=== PATIENT | male | born 1945 | race Caucasian/White ===

== ENCOUNTER 2019-04-06 10:35 | Outpatient (CLI) | payer MEDICARE, SELFPAY ==
--- NOTE | ~2019-04-06 | XR_ITS ---
XR chest 2V DATE: 04/06/2019 10:58 INDICATION: Pneumonia TECHNIQUE: AP and lateral views COMPARISON: 01/31/2019 2 view chest 10/21/2008 portable AP chest FINDINGS: There is right upper lobe atelectasis, infiltrate and/or scarring, unchanged since 02/01/20 19. The lungs are otherwise clear of infiltrate or consolidation. No pleural effusion or pulmonary va scular congestion or pneumothorax. Normal heart size. There is aortic calcification and mild tortuosity. Left internal jugular Port-A-Cath catheter tip overlies the upper right atrium. Surgical clips, right upper quadrant, likely due to cholecystectomy IMPRESSION: No significant change since 01/31/2019 Reviewed, dictated and finalized at location B. M SIGNALER
== END 2019-04-06 10:36 | disposition home or self-care (01) ==
LOC: ANHIMG 10:40
PROVIDERS: PCP Family Medicine; Visit Provider Family Medicine
DX: J18.9 Pneumonia, unspecified organism (principal)
CPT/HCPCS: 71046

== ENCOUNTER 2019-07-09 13:00 | Outpatient (RCR) | payer MEDICARE, SELFPAY ==
--- NOTE | 2019-04-14 16:33 | PTOPEVAL ---
PHYSICAL THERAPY EVALUATION AND PLAN OF CARE Thank you for referring this patient to [facility]. Tom is to participate in PT 2x/week for 4 weeks with re-evaluation to follow to determine further needs. Please review, sign, date and return this plan of care MASON. I agree with and certify that the following plan of care is medically necessary. Referring Physician Date Attending Provider: Jeffrey Miller MD Evaluation Outpatient Past Medical History Neurological History Hx Cerebrovascular Accident (CVA) Yes: 2008 Hx Other Neurological Disorders Yes: BRAIN BLEED 2014 Cardiovascular History Hx Aneurysm Yes Hx Chest Pain Yes Respiratory History Hx Other Respiratory Disorders Yes: RIGHT LUNG CX Gastrointestinal History Hx Cholecystectomy Yes Hx Obstructive Bowel Yes Genitourinary History Hx Genitourinary Disorders No Significant History Musculoskeletal History Hx Arthritis Yes Hx Back Pain Yes Hematological History Hx Hematological Disorders No Significant History Endocrine History Hx Diabetes Yes HEENT History Hx Cataracts Yes: BOTH EYES Integumentary History Hx Skin Disorders No Significant History Psychosocial History Hx Psychiatric Disorders No Significant History Pain History History of Any Previous or Ongoing No Significant History Instance of Pain Anesthesia History Hx Anesthesia Reactions No Significant History Other History Hx Cancer Yes: RIGHT LUNG CANCER Hx Chemotherapy Yes Hx Radiation Therapy Yes Hx Other Surgeries Yes: PORT LT CHEST Evaluation Information Problem Diagnosis hemiplegia right side Onset 2014 Additional Evaluation Detail 141/86 Subjective Information Tom is here today 5 years Query Text:As Reported By Patient/ after hemiplegia. At initial Family encounter he had participated in physicl therapy extensively . He has continued his home exericses and states he works 2-3 hours a day on [employer]. States he is now able to lie over to stomach and do exercises for back of his legs . Tom does have a history of lung cancer with treatment of chemo, radiation, and immunotherapy. He admits that during that time he did much less activity that he normally would. Prior
--- NOTE | 2019-04-27 12:58 | PCPTNOTE ---
Patient did not show up for scheduled appointment this date. Called and spoke with patient and they had a 2:00PM scheduled appt written down. Was able to re-schedule this appointment for 12:30PM on 04/28/2019.
[2019-05-07 14:00] VITALS: BP_SYST 60
--- NOTE | 2019-05-07 15:26 | OTOPEVAL ---
OCCUPATIONAL THERAPY INITIAL EVALUATION 05/07/2019 Thank you for referring this patient to [facility]. Tom will benefit from skilled OT 2x/week for 4 weeks for deficits outlined below. Please review, sign, date and return this plan of care MASON. I agree with and certify that the following plan of care is medically necessary. Referring Physician Date Admitting Provider: Attending Provider: Jeffrey Miller MD Referring Provider: *OT Outpatient Evaluation Start: 05/07/19 13:59 Freq: Status: Active Protocol: Document 05/07/19 14:00 BETTY (Rec: 05/07/19 15:14 BETTY [id number]) Therapy Assessment Status Assessment Status Assessment Status Evaluation Outpatient Past Medical History Neurological History Hx Cerebrovascular Accident (CVA) Yes: 2008 Hx Other Neurological Disorders Yes: BRAIN BLEED 2014 Cardiovascular History Hx Aneurysm Yes Hx Chest Pain Yes Respiratory History Hx Other Respiratory Disorders Yes: RIGHT LUNG CX Gastrointestinal History Hx Cholecystectomy Yes Hx Obstructive Bowel Yes Genitourinary History Hx Genitourinary Disorders No Significant History Musculoskeletal History Hx Arthritis Yes Hx Back Pain Yes Hematological History Hx Hematological Disorders No Significant History Endocrine History Hx Diabetes Yes HEENT History Hx Cataracts Yes: BOTH EYES Integumentary History Hx Skin Disorders No Significant History Psychosocial History Hx Psychiatric Disorders No Significant History Pain History History of Any Previous or Ongoing No Significant History Instance of Pain Anesthesia History Hx Anesthesia Reactions No Significant History Other History Hx Cancer Yes: RIGHT LUNG CANCER Hx Chemotherapy Yes Hx Radiation Therapy Yes Hx Other Surgeries Yes: PORT LT CHEST Evaluation Information Problem Diagnosis (R) hemiplegia s/p CVA Onset 2014 Subjective Information Tom is here today 5 years Query Text:As Reported By Patient/ after hemiplegia. He has Family continued his home exercises and states he works 2-3 hours a day on exercises. He wanted to return to OT due to noticing improvements in RUE flexibility and movement. Tom does have a history of lung cancer with treatment of chemo, radiation, and immunotherapy. He admits that during that
--- NOTE | 2019-05-13 14:07 | PCPTNOTE ---
Patient called and cancelled his re-evaluation for 05/14/2019 due to COVID-19 precautions. His chart will be held for 30 days before closing chart.
--- NOTE | 2019-05-27 08:29 | PTOPEVAL ---
Thank you for referring Tom Lowery to [facility]. Please review, sign, date and return this plan of care MASON. I agree with and certify that the following plan of care is medically necessary. Referring Physician Date Attending Provider: Jeffrey Miller MD Diagnosis (R) hemiplegia s/p CVA Onset 2014 Additional Evaluation Detail 141/86 Subjective Information Tom has participated in 4 Query Text:As Reported By Patient/ weeks of physical therapy to Family increase strength and stamina and endurance after an episode of lung cancer. He reports no new pain or symptoms. Pain Assessment Self Report Pain Level 0 Right Hip Flexion Strength 4- Good - Hip Extension Strength 2+ Poor + Hip Abduction Strength 3- Fair - Hip Adduction Strength 2+ Poor + Knee Strength Right Knee Flexion Strength 2+ Poor + Knee Extension Strength 4- Good - Knee Strength Comments s/l MMT: difficulty performing single joint motion without tonal influence Dermatomes Lumbar/Sacral Dermatomes Right Lumbar/Sacral Dermatome Levels L2 Light Touch Stimulus Impaired Sharp Stimulus Impaired Dull Stimulus Impaired Proprioception Impaired Kinesthesia Impaired Two-Point Discrimination Impaired Lumbar Dermatome Comments levels L2-S2 Balance Assessment Giron Balance Assessment Sitting to Standing Independent w/Hands Unsupported Stance Ability Supervision- 2 minutes Sitting Unsupported, Feet on Floor Safely- 2 minutes Standing to Sitting Assist, Use Legs on Chair Transfer Ability Safely, Hand Use Unsupported Stance- Eyes Closed Supervision, 10 seconds Unsupported Stance- Feet Together Independent, 1 minute Reaching Forward while Standing Safely, 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
--- NOTE | 2019-06-04 09:45 | OTOPEVAL ---
OT RE-EVALUATION REPORT 06/04/2019 Thank you for referring Tom Lowery to [facility]. Tom is making progress with ROM and flexibility and will benefit from continued skilled OT 2x/week for 4 weeks. Please review, sign, date and return this plan of care MASON. I agree with and certify that the following plan of care is medically necessary. Referring Physician Date Admitting Provider: Attending Provider: Jeffrey Miller MD Referring Provider: *OT Outpatient Re-Evaluation Problem Diagnosis (R) hemiplegia s/p CVA Onset 2014 Additional Evaluation Detail Tom has been participating in outpatient OT for treatment of residual deficits following CVA. He has been compliant with all HEPs. Subjective Information Tom reports that since Query Text:As Reported By Patient/ beginning therapy he has been Family noticing improvements in his flexibility and quality of movement in the RUE. This has increased his ability to perform self PROM and strengthening exercises. Pain Assessment Timing of Pain Assessment Timing of Pain Assessment Re-assessment Self Report Self Report Pain Level 0 Pain Score Pain Score 0: Self Report Upper Extremity Range of Motion Scapular/ Shoulder Range of Motion Right Scapular: Retraction Hypomobile Scapular: Protraction Hypomobile Scapular Downward Rotation Hypomobile Scapular Upward Rotation Hypomobile Shoulder Flexion - Active 55 Shoulder Abduction - Active 65 Shoulder Medial Rotation - Active Minimal IR. Query Text:Reach Behind the Back Shoulder Lateral Rotation - Active Minimal ER. Query Text:Reach Behind the Head Scapular/Shoulder Range of Motion AROM measured at eval (05/07/19)- flexion 40* extension 30* abduction 50* Elbow/Forearm Range of Motion Right Elbow Flexion - Active 110 Elbow Flexion - Passive 130 Elbow Extension - Active -20 Elbow Extension - Passive 0 Elbow/Forearm Range of Motion Comments Pt. is able to supinate from full pronation to neutral; With gravity assist, he is able to pronate from neutral to 90* AROM measured at eval (05/07/19)- flexion 100* extension -25* trace forearm rotation Wrist Range of Motion Right Wrist Flexion - Active 30 Wrist E
[2019-06-30 11:10] VITALS: BP_SYST 100
--- NOTE | 2019-06-30 12:21 | OTOPEVAL ---
OCCUPATIONAL THERAPY RE-EVALUATION REPORT 06/30/2019 Thank you for referring Tom Lowery to [facility]. Skilled OT indicated for 2x/week for 4 weeks. Please review, sign, date and return this plan of care MASON. I agree with and certify that the following plan of care is medically necessary. Referring Physician Date Referring Provider: Jeffrey Miller MD *OT Outpatient Re-Evaluation Evaluation Information Problem Diagnosis (R) hemiplegia s/p CVA Onset 2014 Additional Evaluation Detail Tom has been participating in outpatient OT for treatment of residual deficits following CVA. He has been compliant with all HEPs. The past month therapy has been doing a trial mirror therapy sessions. Subjective Information Tom reports that since Query Text:As Reported By Patient/ beginning therapy he has been Family noticing improvements in his flexibility, ROM, and quality of movement in the RUE. This has increased his ability to perform self PROM and strengthening exercises as well as positioning in bed and his w/c. He reports that in the last week he has been independently and automatically positioning his RUE on the arm rest of his w/ c without assist from the LUE. He states, It's like my brain is recognizing the arm more instead of relying on the LUE to help it. Pain Assessment Timing of Pain Assessment Timing of Pain Assessment Re-assessment Self Report Self Report Pain Level 0 Pain Score Pain Score 0: Self Report Upper Extremity Range of Motion Scapular/ Shoulder Range of Motion Right Scapular: Retraction Hypomobile Scapular: Protraction Hypomobile Scapular Downward Rotation Hypomobile Scapular Upward Rotation Hypomobile Shoulder Flexion - Active 55 Shoulder Flexion - Passive 140 Shoulder Abduction - Active 65 Shoulder Abduction - Passive 100 Shoulder Lateral Rotation - Active ER improved from trace Query Text:Reach Behind the Head movement to 20* active ER and 50* passive ER. Scapular/Shoulder Range of Motion No increases or decreases in Comments active shoulder f
--- NOTE | 2019-06-30 13:59 | PTOPEVAL ---
PHYSICAL THERAPY PLAN OF CARE UPDATE AND PROGRESS REPORT Thank you for referring Tom Lowery to [facility]. I recommend continuing physical therapy 2x/week for 4 weeks. Please review, sign, date and return this plan of care MASON. I agree with and certify that the following plan of care is medically necessary. Referring Physician Date Attending Provider: Jeffrey Miller MD Re-evaluation Outpatient Past Medical History Neurological History Hx Cerebrovascular Accident (CVA) Yes: 2008 Hx Other Neurological Disorders Yes: BRAIN BLEED 2014 Other History Hx Cancer Yes: RIGHT LUNG CANCER Self Report Pain Level 0 Pain Score Pain Score 0: Self Report Additional Pain Score Comments buttock muscles are sore Lower Extremity Muscle Strength Testing Hip Strength Right Hip Flexion Strength 4- Good - Hip Extension Strength 2+ Poor + Hip Abduction Strength 3- Fair - Hip Adduction Strength 2+ Poor + Knee Strength Right Knee Flexion Strength 2+ Poor + Knee Extension Strength 4 Good Ankle Strength Right Ankle Dorsiflexion Strength 1 Trace Ankle Plantarflexion Strength 1 Trace Balance Assessment Giron Balance Assessment Sitting to Standing Independent w/Hands Unsupported Stance Ability Safely- 2 minutes Sitting Unsupported, Feet on Floor Safely- 2 minutes Standing to Sitting Assist, Control w/Hands Transfer Ability Safely, Hand Use Unsupported Stance- Eyes Closed Supervision, 10 seconds Unsupported Stance- Feet Together Independent, 1 minute Reaching Forward while Standing Safely, 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 Requires Supervision Look Behind Shoulder - Standing Turns Sideways Only Turning 360 Degrees Requires Assistance Unsupported Stance, Alternating Feet on Assist to Prevent Fall Stair Unsupported Tandem Stance Small Step- 30 seconds Unilateral Leg Stance Unable,assist to not fall GIRON Balance Evaluation Total Score ( 31 points) Comments last re-assess: Time Up Go (TUG) Timed Up and Go Test (TUG) (Seconds) 136 Assistive Devices Cane, Large Base Quad 5 Time Sit to Stand Time in Seconds 29.10 5 Time Sit to Stand Comments with single arm rest Query Text:Normative Data: If Greater Than 15 Seconds, 74% Increase Risk for Recurrent Falls Gait Assessment Gait Assessment Ambulation Assistive Devices Cane, Large Base Quad Ambulation Distance 10 Query Text:(Feet) Ambulation Speed (feet/second) 0.2 Ambulation Destination In Gym Gait Pattern Assessment Gait Pattern Spastic Gait,Steppage Gait Gait Pattern Observed Decreased Stride Length - Left
--- NOTE | 2019-07-10 09:40 | PCPTNOTE ---
This treatment is being continued on visit number [id number]. Please see documentation on both accounts to view progress. Completed interventions, outcomes, and problems have been marked as Inactive to facilitate the copying of the Care plan routine for recurring accounts.
== END 2019-07-10 08:12 | disposition home or self-care (01) ==
LOC: ANHOT 13:00
PROVIDERS: PCP Family Medicine; Visit Provider Family Medicine
DX: I69.351 Hemiplegia and hemiparesis following cerebral infarction affecting right dominant side (principal)
CPT/HCPCS: 97110; 97112; 97116; 97140; 97162; 97165

== ENCOUNTER 2019-08-25 09:30 | Outpatient (RCR) | payer MEDICARE, SELFPAY ==
[2019-07-10 08:13] VITALS: BP_SYST 100
--- NOTE | 2019-07-10 09:39 | PCPTNOTE ---
The treatment documented on this account is a continuation of the treatment documented on visit number [id number]. Please see documentation on both accounts to view progress. The Plan of Care has been transitioned and updated within the new V#. I have addressed and agree with the discipline specific Problems, Interventions, and Goals for the current certification period. Completed interventions, outcomes, and problems have been marked as Inactive to facilitate the copying of the Care plan routine for recurring accounts.
[2019-07-28 14:40] VITALS: BP_SYST 100
--- NOTE | 2019-07-28 15:52 | OTOPEVAL ---
OCCUPATIONAL THERAPY RE-EVALUATION Thank you for referring Tom Lowery to [facility]. It is recommended that Tom continue to work on his home exercise program over the next 4 weeks and return for a re-evaluation to assess his progress with his new HEP as it appears his body needs more time to make physical and functional changes. Plan to schedule a re-evaluation in 4 weeks and follow up another progress report. Please review, sign, date and return this plan of care MASON. I agree with and certify that the following plan of care is medically necessary. Referring Physician Date Admitting Provider: Attending Provider: Jeffrey Miller MD Referring Provider: *OT Outpatient Re-Evaluation Evaluation Information Problem Diagnosis (R) hemiplegia s/p CVA Onset 2014 Additional Evaluation Detail Tom has been participating in outpatient OT since 05/07/19 . OT has been focusing on decreasing tonal patterns, improving flexibility, and improving active movement of the LUE. Subjective Information Tom reports good compliance Query Text:As Reported By Patient/ with all instructed materials. Family He states that in the past month he has noticed improvement with thumb and finger extension as well as improved flexibility of the shoulder and elbow. Pain Assessment Timing of Pain Assessment Timing of Pain Assessment Re-assessment Self Report Self Report Pain Level 0 Pain Score Pain Score 0: Self Report Upper Extremity Range of Motion Scapular/ Shoulder Range of Motion Right Shoulder Flexion - Active 40 Shoulder Flexion - Passive 140 Shoulder Abduction - Active 60 Shoulder Abduction - Passive 100 Shoulder Lateral Rotation - Active Active - 20* Query Text:Reach Behind the Head Passive - 50* Scapular/Shoulder Range of Motion No significant changes in Comments shoulder AROM/PROM since the last reassessment. Elbow/Forearm Range of Motion Right Elbow Flexion - Active 100 Elbow Flexion - Passive 135 Elbow Extension - Active -10 Elbow Extension - Passive 0 Forearm Supination - Active 40 Forearm Supination - Passive 80 Forearm Pronation - Active 90 Elbow/Forearm Range of Motion Comments No changes in elbow AROM/PROM since the last reassessment. Wrist Range of Motion Right Wrist Flexion - Active 30 Wrist Extension - Active 30 Wrist Range of Motion Comments Wrist flexion and extension made no notable impr
--- NOTE | 2019-07-28 16:34 | PTOPEVAL ---
PHYSICAL THERAPY PLAN OF CARE UPDATE Thank you for referring Tom Lowery to [facility]. I recommend follow-up with Tom in 1 month to address HEP. Please review, sign, date and return this plan of care MASON. I agree with and certify that the following plan of care is medically necessary. Referring Physician Date Attending Provider: Jeffrey Miller MD Re-evaluation Diagnosis (R) hemiplegia s/p CVA Onset 2014 Subjective Information Tom continues to report ever Query Text:As Reported By Patient/ changing sensation in th Family eright LE that is difficult for him to describe other than that it is always changing and different. 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 Pain Assessment Timing of Pain Assessment Timing of Pain Assessment Pre-Treatment Self Report Self Report Pain Level 0 Pain Score Pain Score 0: Self Report Lower Extremity Muscle Strength Testing Hip Strength Right Hip Flexion Strength 4+ Good + Hip Extension Strength 3- Fair - Hip Abduction Strength 3 Fair Knee Strength Right Knee Flexion Strength 2- Poor - Knee Extension Strength 4 Good Balance Assessment Giron Balance Assessment Sitting to Standing Independent w/Hands Unsupported Stance Ability Safely- 2 minutes Sitting Unsupported, Feet on Floor Safely- 2 minutes Standing to Sitting Assist, Control w/Hands Transfer Ability Safely, Hand Use Unsupported Stance- Eyes Closed Supervision, 10 seconds Unsupported Stance- Feet Together Independent, 1 minute Reaching Forward while Standing Safely, 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 Object 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 Floor Requires Supervision Look Behind Shoulder - Standing Turns Sideways Only Turning 360 Degrees Requires Assistance Unsupported Stance, Alternating Feet on Assist to Prevent Fall Stair Unsupported Tandem Stance Small Step- 30 seconds Unilateral Leg Stance Unable,assist to not fall GIRON Balance Evaluation Total Score 32/56 Comments last re-assess: Time Up Go (TUG) Assistive Devices Cane, Large Base Quad Comments last re-assess: 136seconds 07/28/2019: unable to perform today, RLE weak and shakey, not safe 5 Time Sit to Stand Time in Seconds 29.10 5 Time Sit to Stand Comments with single arm rest Query Text:Normative Data: If Greater Than 15 Seconds, 74% Increase
[2019-08-24 10:04] VITALS: BP_SYST 120
--- NOTE | 2019-08-24 11:17 | OTOPEVAL ---
OCCUPATIONAL THERAPY D/C NOTE 08/24/2019 Thank you for referring Tom Lowery to [facility]. Plan to D/C today with patient independent with HEP. Please review, sign, date and return this D/C Note MASON. I agree with and certify that the following plan of care is medically necessary. Referring Physician Date Referring Provider: Jeffrey Miller MD *OT Outpatient ReEvaluation Evaluation Information Problem Diagnosis (R) hemiplegia s/p CVA Onset 2014 Additional Evaluation Detail Tom has been participating in outpatient OT since 05/07/19 , with a 1 month break. He presents today for a re- evaluation after completing his home exercise program independently for a month. HEP focuses on decreasing tonal patterns, improving flexibility, and improving active movement of the LUE. Subjective Information Tom reports good compliance Query Text:As Reported By Patient/ with all instructed materials. Family He states that in the past month he has noticed some improvement in the RUE with flexibility and AROM. Pain Assessment Timing of Pain Assessment Timing of Pain Assessment Re-assessment Self Report Self Report Pain Level 0 Pain Score Pain Score 0: Self Report Upper Extremity Range of Motion Scapular/ Shoulder Range of Motion Right Scapular: Retraction Hypomobile Scapular: Protraction Hypomobile Shoulder Flexion - Active 50 Shoulder Flexion - Passive 140 Shoulder Abduction - Active 65 Shoulder Abduction - Passive 120 Shoulder Lateral Rotation - Active Active - 20* Query Text:Reach Behind the Head Passive - 50* Scapular/Shoulder Range of Motion No significant changes in Comments shoulder AROM/PROM since SOC. Elbow/Forearm Range of Motion Right Elbow Flexion - Active 95 Elbow Flexion - Passive 135 Elbow Extension - Active -5 Elbow Extension - Passive 0 Forearm Supination - Passive 80 Forearm Pronation - Active 90 Elbow/Forearm Range of Motion Comments Pt able to supinate to neutral . No changes in elbow AROM/PROM since the last reassessment. Wrist Range of Motion Right Wrist Flexion - Active 35 Wrist Extension - Active 20 Wrist Range of Motion Comments Wrist flexion and extension made no notable improvements
--- NOTE | 2019-08-25 10:27 | PTOPEVAL ---
PHYSICAL THERAPY DISCHARGE NOTE Thank you for referring Tom Lowery to [facility]. Please review, sign, date and return this plan of care MASON. I agree with and certify that the following plan of care is medically necessary. Referring Physician Date Attending Provider: Jeffrey Miller MD Discharge Diagnosis (R) hemiplegia s/p CVA Onset 2014 Subjective Information Tom reports good compliance Query Text:As Reported By Patient/ with all instructed materials. Family He states that in the past month he has noticed some improvement in strength and gait. Pain Assessment Timing of Pain Assessment Timing of Pain Assessment Re-assessment Self Report Self Report Pain Level 0 Pain Score Pain Score 0: Self Report Additional Pain Score Comments buttock muscles are sore Balance Assessment [place] Balance Assessment 32/56 Time Up Go (TUG) Assistive Devices Cane, Large Base Quad Comments 06/26/19: 136seconds 08/25/2019: unable to complete test 07/28/2019: unable to perform today, RLE weak and shakey, not safe 5 Time Sit to Stand Time in Seconds 32.12 5 Time Sit to Stand Comments on month ago: 29seconds; with Query Text:Normative Data: If Greater single arm rest Than 15 Seconds, 74% Increase Risk for Recurrent Falls Gait Pattern Spastic Gait,Steppage Gait Gait Pattern Observed Decreased Stride Length - Left ,Decreased Weight Shift - Right Other Gait Observations as gait progresses, the right LE abducts and externally rotates; very limited weight bearing through right LE; standing: wieght shifts strongly to left and is unable to fully correct center without cues 8ft gait speed without use of UE in // bars: .45ft/second PT Clinical Summary Tom has been participating in physical therapy for RLE strengthening and endurance training in order to improve gait and independence in the home and community. After 1 month of home exercises, he
== END 2019-09-28 12:42 | disposition home or self-care (01) ==
LOC: ANHPT 09:30
PROVIDERS: PCP Family Medicine; Visit Provider Family Medicine
DX: I69.351 Hemiplegia and hemiparesis following cerebral infarction affecting right dominant side (principal)
CPT/HCPCS: 97014; 97110; 97112; 97140; G0283

== ENCOUNTER 2020-03-11 23:36 | Emergency (ER) | payer MEDICARE, SELFPAY ==
--- NOTE | ~2020-03-11 | XR_ITS ---
EXAMINATION: XR chest 2V DATE: 03/12/2020 00:24 INDICATION: Shortness of breath and weakness TECHNIQUE: AP and lateral views of the chest are obtained. COMPARISON: 04/06/2019 FINDINGS: There is chronic and unchanged volume loss in the right lung apex. A left internal jugular Port-A-Cath ends with its tip in the proximal right atrium. The lungs are free of acute opacities. Th ere is no pleural effusion or pneumothorax. The cardiomediastinal silhouette is normal. Surgical clip s in the right upper quadrant are likely from prior cholecystectomy. IMPRESSION: 1. No acute cardiopulmonary abnormality. Reviewed, dictated and finalized at location A. ING TECHN
[2020-03-11 23:35] VITALS: BP 133/75; PULSE 86; RESP 15; TEMP 36.5; O2SAT 97
[2020-03-11 23:43] VITALS: O2SAT 97
[2020-03-11 23:45] VITALS: BP 101/58; PULSE 84; RESP 22; O2SAT 96
[2020-03-12] VITALS (9 sets, daily range): BP systolic 101–131; BP diastolic 58–75; PULSE 81–93; RESP 14–22; O2SAT 97–100
--- NOTE | 2020-03-12 00:12 | ECG_ITS ---
Measurements Intervals [place] Rate: 84 P: 15 CO: 192 QRS: 0 QRSD: 97 T: 63 QT: 372 QTc: 442 Interpretive Statements SINUS RHYTHM BORDERLINE ST-T WAVE ABNORMALITY- HIGH LATERAL LEADS BASELINE ARTIFACT- I, III, AVL BORDERLINE ECG Electronically Signed On 03-12-2020 15:44:12 [facility] [employer] COOK by Raj Wells D.O.
--- NOTE | 2020-03-12 00:19 | PC.NURSE ---
Patient in xray at this time.
[2020-03-12 00:55] LABS: Basophils Percent Auto 0.4 % (0.2-1.2); Eosinophils Absolute Auto 0.1 K/mm3 (0-0.3); Eosinophils Percent Auto 1.3 % (0-4.4); Hematocrit 41.7 % (42.0-52.0); Hemoglobin 14.1 g/dL (14.0-18.0); Immature Granulocyte Absolute 0.05 K/mm3 (0.00-0.031); Immature Granulocyte Percent A 0.7 % (0-0.5); Lymphocytes Absolute Auto 0.91 K/mm3 (0.9-3.2); Lymphocytes Percent Auto 12.2 % (18.3-44.2); Mean Corpuscular HGB Conc 33.8 g/dl (32-36); Mean Corpuscular Hemoglobin 29.8 pg (26-34); Mean Corpuscular Volume 88.2 fl (80-100); Mean Platelet Volume 9.6 fl (7.4-10.4); Monocytes Absolute Auto 0.7 K/mm3 (0.1-0.6); Monocytes Percent Auto 8.7 % (2.6-8.5); Neutrophils Absolute Auto 5.7 K/mm3 (1.3-6.7); Neutrophils Percent Auto 76.7 % (45.5-73.1); Platelet Count Result 278 k/mm3 (150-375); Red Blood Count 4.73 M/mm3 (4.6-6.20); Red Cell Distribution Width 13.1 % (11.5-14.5); White Blood Count 7.4 K/mm3 (4.5-10.0)
[2020-03-12 00:59] LABS: Add Urine Microscopic? YES; Appearance Urine Clear (Clear); Bilirubin Urine Negative (Negative); Blood Urine Negative (Negative); Color Urine Yellow (Yellow); Glucose Urine UA 3+ mg/dL (Negative); Ketones Urine 1+ mg/dL (Negative); Leukocyte Esterase Ur Negative LEU/UL (Negative); Mucus Urine Rare /lpf; Nitrate Urine Negative (Negative); Protein Urine Negative (Negative); RBC Urine 0-2 /hpf (0-2); Specific Grav Ur 1.015 (1.001-1.035); Urobilinogen Urine Negative mg/dL (<2.0); WBC Urine 0-3 /hpf
[2020-03-12 01:07] LABS: Alanine Aminotransferase 24 U/L (4-50); Albumin Level 4.1 g/dL (3.5-5.1); Alkaline Phosphatase 57 U/L (38-126); Anion Gap 13 mmol/L (8-16); Aspartate Amino Transferase 26 U/L (17-59); Bilirubin,Total 0.3 mg/dL (0.2-1.3); Blood Urea Nitrogen 14 mg/dL (9-20); Calcium 9.1 mg/dL (8.4-10.2); Carbon Dioxide 20 mmol/L (22-30); Chloride 104 mmol/L (98-107); Estimated Glomerular Filt Rate > 60; Glucose 232 mg/dL (75-110); Potassium 4.2 mmol/L (3.4-5.0); Sodium 137 mmol/L (137-145)
--- NOTE | 2020-03-12 02:14 | ED.GENADULT ---
HPI - General Adult General Chief complaint: Weakness Stated complaint: weakness Time Seen by Provider: 03/11/20 23:41 History of Present Illness HPI narrative: Patient is a 74-year-old male who presents ER after feeling off and vomiting. Patient is very stable and is scotch and wine. States he has had in 6 years. This time believe and he began to feel weak and vomited. He had no loss of consciousness. No chest pain or chest pressure. No loose stools. Concerned he may have just had too much alcohol. EMS arrived and his Accu-Chek was in the 300s as well. He has not had his evening meds which includes diabetes medications. Related Data Home Medications Medication Instructions Recorded Confirmed amlodipine 5 mg tablet 5 mg PO DAILY 01/20/19 02/04/20 aspirin 81 mg tablet,delayed 81 mg PO DAILY 01/20/19 02/04/20 release ferrous sulfate 325 mg (65 mg 325 mg PO DAILY 01/20/19 02/04/20 iron) tablet pantoprazole 40 mg tablet,delayed 40 mg PO QAM 01/20/19 02/04/20 release valsartan 80 mg tablet 80 mg PO DAILY 01/20/19 02/04/20 alprazolam 0.5 mg PO DAILY 01/31/19 02/04/20 atenolol 25 mg PO DAILY 01/31/19 02/04/20 nortriptyline 25 mg PO HS 01/31/19 02/04/20 pravastatin 20 mg tablet 20 mg PO QPM tablet 07/27/19 02/04/20 Allergies Allergy/AdvReac Type Severity Reaction Status Date / Time No Known Allergies Allergy Verified 03/11/20 23:44 Review of Systems Review of Systems: All systems reviewed & are unremarkable except as noted in HPI and below Constitutional: Constitutional: Denies chills, Denies fever(s) and Reports weakness ENT: Denies nasal congestion and Denies sore throat Cardiovascular: Cardiovascular: Denies chest pain, Denies rapid heart rate and Denies radiating jaw, neck or arm pain Respiratory: Respiratory: Denies cough and Denies dyspnea Gastrointestinal: Gastrointestinal: Denies abdominal pain, Denies diarrhea, Reports nausea and Reports vomiting Neurologic: Denies dizziness, Denies focal weakness, Denies numbness and Reports weakness PMFSH Past Medical History Medical History Anemia Ankle fracture, right Arthritis Bilateral cataracts Body mass index (bmi) 28.0-28.9, adult Bowel obstruction Carcinoma, lung Non-small cell carcinoma status post chemotherapy and radiation. He was also on immunotherapy and is followed by an oncologist at [place]. Cataract GERD (gastroesophageal reflux disease) Hypertension IBS (irritable bowel syndrome) Pneumonia Port-A-Cath in place Small bowel obstruction History of small-bowel obstruction 01/04, 02/03, and 05/06, attributed to segmental strictures. 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 TIA (transient ischemic attack) Type 2 diabetes mellitus Type 2 diabetes mellitus with hyperglycemia Surgical History Surgical History History of cataract extraction History of cholecystectomy Status post repair of hydrocele Family History Family History Mother Cancer of stomach Father Heart attack Other Family history of cardiovascular disease Hypertension Social History Social History Social History: The patient is lives with his in [place]. He designates his , Kimberly, as his surrogate decision maker and he wishes to be a full code. He smoked half a pack of cigarettes per day for 40 years and quit several years ago. No alcohol or drug abuse. Smoking packs per day: 0.5 Smoking cigarettes per day: 10.0 Years smoked: 40 Smoking pack-years: 20.00 Smoking status: Former smoker Alcohol intake: current Drinks per week: 1 Substance use: never Spiritual care concerns: No Agree to blood products: Yes Exam Narrativ
== END 2020-03-12 02:30 | disposition home or self-care (01) ==
PROVIDERS: Emergency Provider Emergency Medicine; Family Provider Family Medicine; PCP Family Medicine
DX: R11.10 Vomiting, unspecified (principal); R53.1 Weakness; I10 Essential (primary) hypertension; I69.351 Hemiplegia and hemiparesis following cerebral infarction affecting right dominant side; I69.322 Dysarthria following cerebral infarction; E11.9 Type 2 diabetes mellitus without complications; K21.9 Gastro-esophageal reflux disease without esophagitis; D64.9 Anemia, unspecified; Z85.118 Personal history of other malignant neoplasm of bronchus and lung; K58.9 Irritable bowel syndrome, unspecified; Z79.82 Long term (current) use of aspirin; Z98.42 Cataract extraction status, left eye; Z98.41 Cataract extraction status, right eye; Z87.891 Personal history of nicotine dependence; R94.31 Abnormal electrocardiogram [ECG] [EKG]; Z79.84 Long term (current) use of oral hypoglycemic drugs
CPT/HCPCS: 36415; 71046; 80053; 81001; 85025; 93005; 99283

== ENCOUNTER → 2022-01-18 10:55 | Outpatient (CLI) | payer MEDICARE, SELFPAY ==
--- NOTE | ~2022-01-18 | XR_ITS ---
XR hip RT 2V w AP pelvis DATE: 01/18/2022 12:06 INDICATION: Right hip pain TECHNIQUE: AP pelvis. AP and lateral views of the right hip COMPARISON: None FINDINGS: The AP view of the pelvis excludes the upper portions of the sacrum and iliac crests. Normal alignment at the pubic symphysis and sacroiliac joints. There is mild bilateral hip osteoarthritis. No fracture or dislocation, avascular necrosis or bone destruction of the right hip is detected. IMPRESSION: Mild bilateral hip osteoarthritis Reviewed, dictated and finalized at location B. GENCY PLANNER
--- NOTE | ~2022-01-18 | XR_ITS ---
XR lumbar spine 2-3V DATE: 01/18/2022 12:06 INDICATION: Back pain TECHNIQUE: AP, lateral views COMPARISON: 01/24/2017 CT abdomen pelvis FINDINGS: There is osteopenia. There is moderate degenerative disc disease at L2-3 and moderately severe degenerative disc disease r emaining lumbar interspaces and severe degenerative disc disease at L5-S1. There is degenerative change at the apophyseal joints with associated minimal grade 1 anterolisthesis at L5-S1. The included lower thoracic and lumbar pedicles are intact. No fracture or bone destruction is detect ed. The sacroiliac joints are intact. IMPRESSION: Osteopenia Prominent multilevel degenerative disease of lumbar spine Minimal grade 1 anterolisthesis at L5-S1 due to degenerative change at the apophyseal joints Reviewed, dictated and finalized at location B. ECT CONSULTANT IMPRESSION: Osteopenia Prominent multilevel degenerative disease of lumbar spine Minimal grade 1 anterolisthesis at L5-S1 due to degenerative change at the apop hyseal joints
== END ==
PROVIDERS: PCP Physician Assistant; Visit Provider Physician Assistant
DX: M16.0 Bilateral primary osteoarthritis of hip (principal); M85.88 Other specified disorders of bone density and structure, other site; M51.36 Other intervertebral disc degeneration, lumbar region
CPT/HCPCS: 72100; 73502

== ENCOUNTER → 2022-09-04 08:47 | Outpatient (CLI) | payer MEDICARE, SELFPAY ==
--- NOTE | ~2022-09-04 | MR_ITS ---
MRI of the lumbar spine Clinical History: Radiculopathy Technique: Axial T2-weighted images, and sagittal T1-weighted, T2-weighted, and T2 fat-sat images wer e acquired. Findings: No fracture identified. There is minimal grade 1 retrolisthesis of L3 over L4. No suspiciou s bone marrow signal abnormality seen. At L1-L2, there is no disc bulge or herniation. There is mild to moderate facet arthropathy. No centr al canal stenosis or neural foraminal narrowing. At L2-L3, there is no significant disc bulge or herniation. There is moderate facet arthropathy. No c entral canal stenosis or neural foraminal narrowing. At L3-L4, there is diffuse disc bulge with mild facet arthropathy. There is bilateral lateral recess stenosis. There is moderate to advanced right neural foraminal narrowing and intimal left neural fora micah narrowing. At L4-L5, there is disc bulge and moderate facet arthropathy. No central canal stenosis. There is mil d bilateral neural foraminal narrowing. L5-S1, there is disc bulge and moderate to severe facet arthropathy. No central canal stenosis. There is severe right neural foraminal narrowing and moderate left neural foraminal narrowing. Paravertebral soft tissues are unremarkable. Impression: Moderate degenerative spondylosis at L3-L4 and L5-S1, as detailed above. Additional mild degenerative changes, as above. Reviewed, dictated and finalized at [facility]. Impression: Moderate degenerative spondylosis at L3-L4 and L5-S1, as detailed above. Additional mild degenerative changes, as above.
== END ==
PROVIDERS: PCP Family Medicine; Visit Provider Physician Assistant
DX: M47.27 Other spondylosis with radiculopathy, lumbosacral region (principal)
CPT/HCPCS: 72148

== ENCOUNTER 2022-11-08 08:00 | Outpatient (NON) | payer MEDICARE, SELFPAY | END 2022-11-08 08:01 | disposition home or self-care (01) | LOC: ANHLAB 11-09 13:44 | PROVIDERS: PCP Family Medicine; Visit Provider Nurse Practitioner | DX: C44.311 Basal cell carcinoma of skin of nose (principal) | CPT/HCPCS: 88305 ==

== ENCOUNTER 2022-12-17 14:41 | Outpatient (NON) | payer MEDICARE, SELFPAY | END 2022-12-17 14:42 | disposition home or self-care (01) | LOC: ANHLAB 14:41 | PROVIDERS: PCP Family Medicine; Visit Provider Nurse Practitioner | DX: C44.311 Basal cell carcinoma of skin of nose (principal) | CPT/HCPCS: 88305; 88331 ==

== ENCOUNTER 2023-09-05 09:22 | Outpatient (CLI) | payer MEDICARE, SELFPAY ==
--- NOTE | ~2023-09-05 | XR_ITS ---
Clinical Indication: Neoplasm PA and lateral views of the chest: Comparison: 03/12/2020 Findings: Spiculated density in the left suprahilar region is similar to prior exam, possibly treated disease. No other pulmonary abnormality seen. Cardiomediastinal silhouette is within normal limits. Bones and soft tissues are unremarkable. Impression: Stable spiculated density left suprahilar region, possibly representing treated disease. Reviewed, dictated and finalized at location . Impression: Stable spiculated density left suprahilar region, possibly representing treated disease.
== END 2023-09-05 09:23 ==
PROVIDERS: PCP Family Medicine; Visit Provider Family Medicine
DX: C34.90 Malignant neoplasm of unspecified part of unspecified bronchus or lung (principal)
CPT/HCPCS: 71046

== ENCOUNTER 2023-11-26 17:58 | Inpatient (IN) | payer MEDICARE, SELFPAY ==
--- NOTE | ~2023-11-26 | XR_ITS ---
INTRAOPERATIVE FLUOROSCOPY: CLINICAL HISTORY: 78 years old Male; RIGHT IT NAIL PROCEDURE COMMENTS: Limited intraoperative fluoroscopy of the right femur was performed. CUMULATIVE DOSE: 26.2 mGy FLUOROSCOPY TIME: 69.5 seconds FINDINGS/IMPRESSION: Intraoperative fluoroscopic views demonstrate diffuse bony demineralization with an intramedullary ro d and screw in the right femur. Please refer to operative note for further details. Reviewed, dictated and finalized at location A.
--- NOTE | ~2023-11-26 | CT_ITS ---
CT brain wo con Ordering provider: Jaime Simpson MD History: 78 years Male with . trauma . Comparison: None. Technique: CT of the head without contrast. Radiation reduction technique utilized.The dose-length product was 681 mGy-cm. FINDINGS: BRAIN PARENCHYMA AND CSF SPACES: Mild leukoaraiosis and diffuse cortical atrophy. Mild atheromatous d isease. Encephalomalacia Is seen in the area of the external capsule extending to the left bowman rad iata. No midline shift, mass effect or hemorrhage. The brain parenchyma and CSF spaces are otherwis e normal. VISUALIZED PARANASAL SINUSES: Right maxillary sinus disease. MASTOIDS: Well aerated. BONES: The bones appear intact. SOFT TISSUES: Visualized nasopharynx is normal. Superficial soft tissues are normal. IMPRESSION: No acute intracranial findings. Reviewed, dictated and finalized at location A.
--- NOTE | ~2023-11-26 | XR_ITS ---
XR femur RT min 2V Ordering provider: Myrna Bliss III, History: . fall . Comparison: None. FINDINGS: BONES: The intertrochanteric/subtrochanteric fracture is seen in the right femur. Overlap of the bony fragments is noted. JOINT SPACES: Severe glenohumeral. SOFT TISSUES: Vascular atherosclerotic changes. IMPRESSION: Fracture of the intertrochanteric/subtrochanteric area of the right femur. Reviewed, dictated and finalized at location A.
--- NOTE | ~2023-11-26 | XR_ITS ---
XR hip RT 2V w AP pelvis Ordering provider: Myrna Bliss III, DO History: . fall . Comparison: None. FINDINGS: BONES: intertrochanteric/subtrochanteric fracture of the right femur. Overlap of the bones is noted. HIP JOINT SPACES: Bilateral hip severe osteoarthritic changes. SACROILIAC JOINT SPACES/LUMBAR SPINE: The sacroiliac joint spaces are narrowed. Mild degenerative cecilia nges of the visualized lower lumbar spine. PUBIC SYMPHYSIS: Pubic symphysitis. SOFT TISSUES: Normal. IMPRESSION: intertrochanteric/subtrochanteric fracture of the right femur. Reviewed, dictated and finalized at location A.
--- NOTE | ~2023-11-26 | US_ITS ---
EXAMINATION: US venous doppler LE RT DATE: 11/29/2023 11:41 INDICATION: Right calf pain TECHNIQUE: Grayscale ultrasound images without and with compression and Doppler ultrasound images of the right lower extremity veins were obtained. COMPARISON: None. FINDINGS: The visualized portions of right common femoral vein, profunda (deep) femoral vein, femoral vein, pop liteal vein, peroneal veins, posterior tibial veins, and greater saphenous vein outflow are patent. IMPRESSION: 1. No deep venous thrombosis within the right lower extremity, as detailed above. Reviewed, dictated and finalized at location A. IMPRESSION: 1. No deep venous thrombosis within the right lower extremity, as detailed abo ve.
--- NOTE | ~2023-11-26 | XR_ITS ---
XR chest 1V Ordering provider: Myrna Bliss III, DO History: 78 years Male with . FX RIGHT HIP . Comparison: September 05, 2023 FINDINGS: MEDIASTINUM: The cardiac silhouette is not enlarged. Prominent both darshan more on the right side. Wide laura of the superior mediastinum. LUNGS: No infiltrates, effusions or pneumothorax. Prominent markings are seen bilaterally. Possibility of soft tissue density in the right hilar area i s not excluded. Further evaluation with CT is advised. OTHER: No free air under the diaphragm. IMPRESSION: Prominent darshan with widening of the superior mediastinum. CT Further evaluation there is advised. Reviewed, dictated and finalized at location A.
--- NOTE | ~2023-11-26 | US_ITS ---
RIGHT LOWER EXTREMITY VENOUS ULTRASOUND Ordering provider: Patricia Meléndez APRN History: . eval for dvt . Comparison: None. FINDINGS: --COMMON FEMORAL: Patent and free of thrombus. Normal compressibility, phasic flow and augmentation. --PROXIMAL SUPERFICIAL FEMORAL: Patent and free of thrombus. Normal compressibility, phasic flow and augmentation. --DISTAL SUPERFICIAL FEMORAL: Patent and free of thrombus. Normal compressibility, phasic flow and au gmentation. --POPLITEAL: Patent and free of thrombus. Normal compressibility, phasic flow and augmentation. --POSTERIOR TIBIAL: Patent and free of thrombus. Normal compressibility, phasic flow and augmentation . IMPRESSION: Negative right lower extremity venous US. No deep vein thrombosis. Reviewed, dictated and finalized at location A.
--- NOTE | ~2023-11-26 | CT_ITS ---
CTA chest Ordering provider: Jaime Simpson MD History: 78 years Male with . wide mediastinum . Comparison: None. Technique: CT chest with IV contrast. Radiation reduction technique utilized.The dose-length product was 663.18 mGy-cm. Findings: VISUALIZED THORACIC INLET: Normal. MEDIASTINUM: Aorta/coronary arteries: Mild atheromatous disease. Heart/other: The heart is not enlarged. Lymph nodes: No mediastinal or hilar adenopathy. Enlarged lymph node is seen between the aorta and the esophagus measuring 1.4 cm. LUNGS: Atelectatic changes are seen in the right upper lobe. Slightly dilated bronchi are seen in the right upper lobe area. Minimal opacification in the left lower lobe area.Opacification in the right and left lower lobe is also seen medially. No pulmonary nodules or masses. No effusions. No pneumotho rax. VISUALIZED UPPER ABDOMEN: Sliding hiatus hernia. Fluid is seen in the esophagus suggestive of reflux joints. Tiny cyst in the right kidney midpole. Otherwise, the visualized upper abdomen is normal. MUSCULOSKELETAL: Soft tissues: The superficial soft tissues are normal. Bones: Age appropriate degenerative changes of the spine. IMPRESSION: Atelectasis of the right upper lobe.. Bronchoscopy to evaluate for the etiology of the atelectasis is advised. Atelectatic changes in the superior segment of the right and left upper lobes. Reviewed, dictated and finalized at location A.
[2023-11-26 18:01] VITALS: BP 101/74; PULSE 69; RESP 15; TEMP 36.3; O2SAT 98
--- NOTE | 2023-11-26 18:33 | ED.LOWEXIN ---
HPI - Extremity Injury (Lower) General Chief Complaint: Extremity Injury, Lower <Myrna Bliss III, DO - Last Filed: 11/26/23 19:00> Stated Complaint: right cramping <Myrna Bliss III, DO - Last Filed: 11/26/23 19:00> Time Seen by Provider: 11/26/23 18:29 <Myrna Bliss III, DO - Last Filed: 11/26/23 19:00> History of Present Illness HPI Narrative: Pt suffered ground level fall about 2 hrs ago and complains of right thigh pain and right hip pain. Pt denies LOC or hitting head. Pt has history of prior CVA with right sided paralysis and has contracture to right leg baseline. Pt says it feels like his thigh is spasming. <Myrna Bliss III, DO - Last Filed: 11/26/23 19:00> Related Data Home Medications: Home Medications Medication Instructions Recorded Confirmed aspirin 81 mg tablet,delayed 81 mg PO HS 01/20/19 11/26/23 release (Adult Aspirin Regimen) ferrous sulfate 325 mg (65 mg 350 mg PO DAILY 01/20/19 11/26/23 iron) tablet mecobalamin (vitamin B12) 1,000 1,000 mcg PO DAILY 08/09/22 11/26/23 mcg chewable tablet amlodipine 10 mg tablet 10 mg PO QNOON 11/26/23 11/26/23 atenolol 50 mg tablet 50 mg PO QNOON 11/26/23 11/26/23 fluoxetine 10 mg capsule 10 mg PO HS 11/26/23 11/26/23 gabapentin 300 mg capsule 300 mg PO HS 11/26/23 11/26/23 glipizide 5 mg tablet 10 mg PO BID 11/26/23 11/26/23 nortriptyline 25 mg capsule 25 mg PO HS 11/26/23 11/26/23 pantoprazole 40 mg tablet,delayed 40 mg PO QNOON 11/26/23 11/26/23 release pravastatin 20 mg tablet 20 mg PO QPM 11/26/23 11/26/23 valsartan 80 mg tablet 80 mg PO QPM 11/26/23 11/26/23 <Myrna Bliss III, DO - Last Filed: 11/26/23 19:00> Allergies/Adverse Reactions: Allergies Allergy/AdvReac Type Severity Reaction Status Date / Time No Known Allergies Allergy Verified 11/26/23 22:35 <Myrna Bliss III, DO - Last Filed: 11/26/23 19:00> Review of Systems Review of Systems: All systems reviewed & are unremarkable except as noted in HPI and below <Myrna Bliss III, DO - Last Filed: 11/26/23 19:00> [facility] Past Medical History Medical History: Medical History (Updated 11/27/23 @ 01:56 by Catherine Velasco MD) Anemia Ankle fracture, right Arthritis Bilateral cataracts Body mass index (bmi) 28.0-28.9, adult Bowel obstruction Carcinoma, lung stage III adenocarcinoma status post chemotherapy and radiation. He was also on immunotherapy. Recommend annual chest imaging Cataract Closed intertrochanteric fracture of right hip Dietary counseling and surveillance Dietary counseling and surveillance Elevated lactic acid level Fall in shower GERD (gastroesophageal reflux disease) Health counseling IBS (irritable bowel syndrome) Pneumonia Port-A-Cath in place Sepsis Small bowel obstruction History of small-bowel obstruction 01/04, 02/03, and 05/06, attributed to segmental strictures. 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 TIA (transient ischemic attack) Type 2 diabetes mellitus with hyperglycemia <Myrna Bliss III, DO - Last Filed: 11/26/23 19:00> Surgical History Surgical History: Surgical History History of cataract extraction History of cholecystectomy Status post repair of hydrocele <Myrna Bliss III, DO - Last Filed: 11/26/23 19:00> Family History Family History: Family History Mother Cancer of stomach Father Heart attack Other Family history of cardiovascular disease Hypertension <Myrna Bliss III, DO - Last Filed: 11/26/23 19:00> Social History Social History: Social History Social History: The patient is a lives with his grandson in [place]. Smoking packs per day: 0.5 Smoking cigarettes per da
[2023-11-26] MEDS: MORPHINE SULFATE (*CRX) 4 MG/ML INJ IV PUSH ×3 (18:36→22:35)
[2023-11-26] MEDS: diazePAM INJ (*CRX) 10 MG/2 ML SYRINGE 5 MG IV PUSH (18:37)
[2023-11-26 18:48] LABS: Basophils Absolute Auto 0.1 K/mm3 (0.0-0.1); Basophils Percent Auto 0.4 % (0.2-1.2); Eosinophils Absolute Auto 0.1 K/mm3 (0-0.3); Eosinophils Percent Auto 0.8 % (0-4.4); Hemoglobin 13.5 g/dL (14.0-18.0); Immature Granulocyte Absolute 0.13 K/mm3 (0.00-0.031); Immature Granulocyte Percent A 0.9 % (0-0.5); Lymphocytes Absolute Auto 1.02 K/mm3 (0.9-3.2); Lymphocytes Percent Auto 7.2 % (18.3-44.2); Mean Corpuscular HGB Conc 33.8 g/dl (32-36); Mean Corpuscular Hemoglobin 29.5 pg (26-34); Mean Corpuscular Volume 87.5 fl (80-100); Mean Platelet Volume 9.7 fl (7.4-10.4); Monocytes Absolute Auto 0.8 K/mm3 (0.1-0.6); Monocytes Percent Auto 5.6 % (2.6-8.5); Neutrophils Absolute Auto 12.1 K/mm3 (1.3-6.7); Neutrophils Percent Auto 85.1 % (45.5-73.1); Platelet Count Result 321 k/mm3 (150-375); Red Blood Count 4.57 M/mm3 (4.6-6.20); Red Cell Distribution Width 12.9 % (11.5-14.5); White Blood Count 14.2 K/mm3 (4.5-10.0)
[2023-11-26 18:58] LABS: INR 1.1; Prothrombin Time 14.5 Seconds (11.1-14.7)
[2023-11-26 18:59] LABS: Alanine Aminotransferase 21 U/L (6-50); Albumin Level 4.3 g/dL (3.5-5.1); Alkaline Phosphatase 62 U/L (38-126); Anion Gap 11 mmol/L (4-12); Aspartate Amino Transferase 28 U/L (17-59); Bilirubin,Total 0.6 mg/dL (0.2-1.3); Blood Urea Nitrogen 19 mg/dL (9-20); Calcium 8.7 mg/dL (8.4-10.2); Carbon Dioxide 24 mmol/L (22-30); Chloride 99 mmol/L (98-107); Estimated CRCL calculation 57 ml/min; Estimated Glomerular Filt Rate > 60; Glucose 227 mg/dL (65-110); Potassium 4.7 mmol/L (3.4-5.0); Sodium 134 mmol/L (137-145)
[2023-11-26 19:06] VITALS: BP 121/64; PULSE 76; RESP 17; O2SAT 99
[2023-11-26 19:43] VITALS: BP 121/64; PULSE 78; RESP 20; O2SAT 97
[2023-11-26 21:00] VITALS: BP 126/61; PULSE 79; RESP 18; TEMP 35.9; O2SAT 94
--- NOTE | 2023-11-26 22:08 | PM.CNOR ---
Assessment and Plan Assessment and plan (1) Fall in shower: Code(s): W18.2XXA - Fall in (into) shower or empty bathtub, initial encounter Status: Acute Assessment and Plan: New patient evaluation for chief complaint rt hip IT fx. History, physical exam and radiographs reviewed with the patient. Discussed the condition, nature, etiology and course of natural history with the patient. Treatment options including surgical and nonoperative treatment were reviewed. Risks and benefits of each as well as alternatives reviewed. The patient's questions were answered. Conservative treatment ice, pain control, mechanical dvt px. (2) Type 2 diabetes mellitus with hyperglycemia: Qualifiers: Diabetes mellitus residential insulin use: without superintendent terminal use Qualified Code(s): E11.65 - Type 2 diabetes mellitus with hyperglycemia Code(s): E11.65 - Type 2 diabetes mellitus with hyperglycemia Status: Acute (3) Neurologic deficit due to old ischemic stroke: Code(s): I69.398 - Other sequelae of cerebral infarction; R29.818 - Other symptoms and signs involving the nervous system Status: Acute (4) Closed intertrochanteric fracture of right hip: Qualifiers: Encounter type: initial encounter Fracture alignment: displaced Qualified Code(s): S72.141A - Displaced intertrochanteric fracture of right femur, initial encounter for closed fracture Code(s): S72.141A - Displaced intertrochanteric fracture of right femur, initial encounter for closed fracture Status: Acute Assessment and Plan: Discussed nonoperative and operative treatment options with the patient. Risks and benefits of each as well as alternatives were reviewed. All of the patient's questions were answered. The risks of surgery reviewed including but not limited to: Neurovascular damage, wound complication, infection, blood clot, pulmonary embolus, stroke, myocardial infarction, and anesthetic risks up to and including . Continued pain and possible dysfunction were explained. Specific risks of the procedure including later recurrence of deformity. No guarantees were offered. If hardware used, discussed risk of failure/ breakage and possible need for removal. If complications occur, the patient understands the need for further treatment, possible further surgery. Patient verbalizes understanding and wishes to proceed. PLAN: right hip reduction with trochanteric nail. History of Present Illness HPI Consult date: 11/27/23 Requesting physician: Jaime Simpson MD Consult reason: fracture (right prox femur) Chief complaint: Intertroch femur fracture Narrative: 78yo hx of stroke with rt hemiparesis fell getting out of shower at home. RT hip fx upon ER eval. Admitted for further. minimal ambulator with transfers use walker. Wheelchair ambulator. States lives at home alone with help of nephew. [facility] Past Medical History Medical History (Updated 11/27/23 @ 01:56 by Catherine Velasco MD) Anemia Ankle fracture, right Arthritis Bilateral cataracts Body mass index (bmi) 28.0-28.9, adult Bowel obstruction Carcinoma, lung stage III adenocarcinoma status post chemotherapy and radiation. He was also on immunotherapy. Recommend annual chest imaging Cataract Closed intertrochanteric fracture of right hip Dietary counseling and surveillance Dietary counseling and surveillance Elevated lactic acid level Fall in shower GERD (gastroesophageal reflux disease) Health counseling IBS (irritable bowel syndrome) Pneumonia Port-A-Cath in place Sepsis Small bowel obstruction History of small-bowel obstruction 01/04, 02/03, and 05/06, attributed to segmental strictures. 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 TIA (transient ischemic attack) Type 2 diabetes mellitus with hyperglycemia Surgical History Surgical History (Reviewed 11/26/23 @ 22:11 by
[2023-11-26 22:37] VITALS: BP 130/72; PULSE 84; RESP 14; O2SAT 94
[2023-11-26] MEDS: ACETAMINOPHEN 500 MG TABLET 1000 MG PO (22:44)
[2023-11-26] MEDS: KETOROLAC 15 MG/ML VIAL (*BKC) IV PUSH (22:44)
--- NOTE | 2023-11-26 23:10 | PM.IMHP ---
H&P: HPI History of Present Illness Date/Time: 11/26/23 23:10 Chief Complaint: fall Narrative: This is a 78-year-old male with past medical history significant for stroke with residual right-sided hemiparesis, hypertension, diabetes, dyslipidemia. Patient was found kneeling after he he went in to take a shower when he fell forward while sitting in his shower bench, no loss of consciousness. Patient had been in his usual state of health up until this point, patient is wheelchair bound able to transfer on his own. Preliminary workup was significant for fracture of the intertrochanteric subtrochanteric area at the right femur. patient has been admitted for further evaluation management and treatment. XR femur RT min 2V Ordering provider: Myrna Bliss III, DO History: . fall . Comparison: None. FINDINGS: BONES: The intertrochanteric/subtrochanteric fracture is seen in the right femur. Overlap of the bony fragments is noted. JOINT SPACES: Severe glenohumeral. SOFT TISSUES: Vascular atherosclerotic changes. IMPRESSION: Fracture of the intertrochanteric/subtrochanteric area of the right femur. CTA chest Ordering provider: Jaime Simpson MD History: 78 years Male with . wide mediastinum . Comparison: None. Technique: CT chest with IV contrast. Radiation reduction technique utilized.The dose-length product was 663.18 mGy-cm. Findings: VISUALIZED THORACIC INLET: Normal. MEDIASTINUM: Aorta/coronary arteries: Mild atheromatous disease. Heart/other: The heart is not enlarged. Lymph nodes: No mediastinal or hilar adenopathy. Enlarged lymph node is seen between the aorta and the esophagus measuring 1.4 cm. LUNGS: Atelectatic changes are seen in the right upper lobe. Slightly dilated bronchi are seen in the right upper lobe area. Minimal opacification in the left lower lobe area.Opacification in the right and left lower lobe is also seen medially. No pulmonary nodules or masses. No effusions. No pneumothorax. VISUALIZED UPPER ABDOMEN: Sliding hiatus hernia. Fluid is seen in the esophagus suggestive of reflux joints. Tiny cyst in the right kidney midpole. Otherwise, the visualized upper abdomen is normal. MUSCULOSKELETAL: Soft tissues: The superficial soft tissues are normal. Bones: Age appropriate degenerative changes of the spine. IMPRESSION: Atelectasis of the right upper lobe.. Bronchoscopy to evaluate for the etiology of the atelectasis is advised. Atelectatic changes in the superior segment of the right and left upper lobes. Review of Systems Review of Systems: Fall, right lower extremity pain at the hip and with movement PMFSH Past Medical History Medical History (Updated 11/27/23 @ 01:56 by Catherine Velasco MD) Anemia Ankle fracture, right Arthritis Bilateral cataracts Body mass index (bmi) 28.0-28.9, adult Bowel obstruction Carcinoma, lung stage III adenocarcinoma status post chemotherapy and radiation. He was also on immunotherapy. Recommend annual chest imaging Cataract Closed intertrochanteric fracture of right hip Dietary counseling and surveillance Dietary counseling and surveillance Elevated lactic acid level Fall in shower GERD (gastroesophageal reflux disease) Health counseling IBS (irritable bowel syndrome) Pneumonia Port-A-Cath in place Sepsis Small bowel obstruction History of small-bowel obstruction 01/04, 02/03, and 05/06, attributed to segmental strictures. 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 TIA (transient ischemic attack) Type 2 diabetes mellitus with hyperglycemia Surgical History Surgical History History of cataract extraction History of cholecystectomy Status post repair of hydrocele Family History Family History Mother Cancer of stomach Father H
[2023-11-26 23:48] VITALS: BP 100/64; PULSE 70; RESP 12; O2SAT 97
[2023-11-27] VITALS (16 sets, daily range): BP systolic 107–146; BP diastolic 56–82; PULSE 81–103; RESP 10–18; TEMP 35.9–37.7; O2SAT 93–100
[2023-11-27] MEDS: MORPHINE SULFATE (*CRX) 2 MG/ML INJ IV PUSH (00:14)
[2023-11-27] MEDS: ONDANSETRON INJ 4 MG/2 ML VIAL IV PUSH (00:15)
--- NOTE | 2023-11-27 00:23 | ADMGEN ---
This patient, Tom Desouza, was admitted to [facility] S[facility] Room 313-01. Patient/family oriented to hospital policies and general routines including ID bracelet, bed and alarms, visiting hours, pain management, procedures, bathroom and other care routines, personal items, smoking policy, room service/diet, and visiting hours. Information on how to activate the Rapid Response Team has been discussed. Patient/Family are encouraged to report perceived risks to care and to ask questions if they do not understand what they are told or what they should do.
--- NOTE | 2023-11-27 08:37 | PCOTNOTE ---
Cancellation of OT evaluation. Pt. will have surgery for injury. Re-order when appropriate. Following
--- NOTE | 2023-11-27 10:06 | PM.IMPN ---
Progress Note: A&P Assessment and Plan (1) Closed intertrochanteric fracture: Code(s): S72.143A - Displaced intertrochanteric fracture of unspecified femur, initial encounter for closed fracture Status: Acute Assessment and Plan: admit to regular medical floor bed rest pain management ortho consult 11/26- Right hip reduction with trochanteric Intramedullary nail hip screw fixation. 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: Code(s): I69.398 - Other sequelae of cerebral infarction; R29.818 - Other symptoms and signs involving the nervous system Status: Acute Assessment and Plan: right hemiparesis (5) Neuropathy: Code(s): G62.9 - Polyneuropathy, unspecified Status: Acute Assessment and Plan: continue gabapentin (6) Essential hypertension: Code(s): I10 - Essential (primary) hypertension Status: Acute Assessment and Plan: resume home med (7) T2DM (type 2 diabetes mellitus): Code(s): E11.9 - Type 2 diabetes mellitus without complications Status: Acute Assessment and Plan: will hold glipizide and Glucophage insulin sliding scale as needed - hypoglycemia protocol Plan SCD ordered prior Time Spent With Patient Time with patient: Greater than 35 minutes Subjective Date/time seen: 11/27/23 10:06 Interval history: fall Narrative retrieved from H/P: This is a 78-year-old male with past medical history significant for stroke with residual right-sided hemiparesis, hypertension, diabetes, dyslipidemia. Patient was found kneeling after he he went in to take a shower when he fell forward while sitting in his shower bench, no loss of consciousness. Patient had been in his usual state of health up until this point, patient is wheelchair bound able to transfer on his own. Preliminary workup was significant for fracture of the intertrochanteric subtrochanteric area at the right femur. patient has been admitted for further evaluation management and treatment. 11/26- pt is seen and examined. Ortho was consulted - Right hip reduction with trochanteric Intramedullary nail hip screw fixation with DR Cristina today, 11/26 Review of Systems Review of Systems: Fall, right lower extremity pain at the hip and with movement Exam Narrative: patient is laying in a stretcher Const: General: comfortable, no acute distress, well developed, alert, awake and average body habitus Nutritional Appearance: average body habitus Orientation/consciousness: patient oriented x3 HENMT: Head: normal to inspection, normocephalic and atraumatic Ears: hearing grossly normal bilaterally Other: right facial droop Eyes: General: appearance normal, both eyes and all related structures Pupils: Equal, round and reactive pupils present EOM: EOMs intact bilaterally Neck: Neck: full ROM, no lymphadenopathy and no JVD Thyroid: thyroid normal Lymphatic: no lymphadenopathy noted Resp: Effort & Inspection: normal respiratory effort and able to speak in complete sentences Auscultation: clear to auscultation bilaterally Cardio: Jugular venous distension: no JVD Rate: regular rate Rhythm: regular rhythm Heart sounds: S1 normal heart sound present and S2 normal heart sound present : General: Yes deferred Skin: Rashes: no rashes Wounds: no wounds Neuro: General: patient oriented x3, CN's II-XI intact bilaterally and Unable to assess ga
[2023-11-27] MEDS: TRANEXAMIC ACID 1,000MG/ISO100 1,000 MG/100 ML BAG 200 MG IVPB (11:00)
[2023-11-27] MEDS: LACTATED RINGERS 1,000 ML 30 ML IV CONT ×2 (11:00→14:20)
[2023-11-27 11:05] LABS: Glucose Point of Care 176 mg/dl (65-105)
--- NOTE | 2023-11-27 11:21 | WPDANESEPPF ---
Anes - Initial Pre Proc Eval Procedure: Operation Date: 11/27/23 12:00 Proposed Procedures p Right Intertrochanteric Nail(Right) - Santos Cristina MD Date/Time: 11/27/23 11:21 Surgeon: Catherine Velasco MD Pre Op Diagnosis: Intertroch femur fracture Patient Data Age: 78 Gender: M Height: 1.8 m Weight: 97.2 kg Last Vital Signs Temp 36.1 C L 11/27/23 06:00 Pulse 81 11/27/23 06:00 Resp 18 11/27/23 06:00 BP 111/56 L 11/27/23 06:00 Pulse Ox 96 11/27/23 09:39 O2 Del Method Room Air 11/27/23 09:39 FiO2 21 11/27/23 09:39 Allergies Allergy/AdvReac Type Severity Reaction Status Date / Time No Known Allergies Allergy Verified 11/26/23 22:35 Home Medications Medication Instructions Recorded Confirmed Type aspirin 81 mg tablet,delayed 81 mg PO HS 01/20/19 11/26/23 History release (Adult Aspirin Regimen) ferrous sulfate 325 mg (65 mg 350 mg PO DAILY 01/20/19 11/26/23 History iron) tablet blood sugar diagnostic (OneTouch #200 ea 09/23/19 11/26/23 Rx Ultra Blue Test Strip) mecobalamin (vitamin B12) 1,000 1,000 mcg PO DAILY 08/09/22 11/26/23 History mcg chewable tablet AFO consultation #1 ea 08/22/22 11/26/23 Rx metformin 500 mg tablet 500 mg PO TID 90 days #270 tabs 07/30/23 11/26/23 Rx amlodipine 10 mg tablet 10 mg PO QNOON 11/26/23 11/26/23 History atenolol 50 mg tablet 50 mg PO QNOON 11/26/23 11/26/23 History fluoxetine 10 mg capsule 10 mg PO HS 11/26/23 11/26/23 History gabapentin 300 mg capsule 300 mg PO HS 11/26/23 11/26/23 History glipizide 5 mg tablet 10 mg PO BID 11/26/23 11/26/23 History nortriptyline 25 mg capsule 25 mg PO HS 11/26/23 11/26/23 History pantoprazole 40 mg tablet,delayed 40 mg PO QNOON 11/26/23 11/26/23 History release pravastatin 20 mg tablet 20 mg PO QPM 11/26/23 11/26/23 History valsartan 80 mg tablet 80 mg PO QPM 11/26/23 11/26/23 History Laboratory Tests 11/26/23 11/27/23 18:40 11:01 WBC 14.2 H K/mm3 (4.5-10.0) RBC 4.57 L M/mm3 (4.6-6.20) Hgb 13.5 L g/dL (14.0-18.0) Hct 40.0 L % (42.0-52.0) MCV 87.5 fl (80-100) MCH 29.5 pg (26-34) MCHC 33.8 g/dl (32-36) RDW 12.9 % (11.5-14.5) Plt Count 321 k/mm3 (150-375) MPV 9.7 fl (7.4-10.4) Immature Gran % (Auto) 0.9 H % (0-0.5) Neut % (Auto) 85.1 H % (45.5-73.1) Lymph % (Auto) 7.2 L % (18.3-44.2) Redwood % (Auto) 5.6 % (2.6-8.5) Eos % (Auto) 0.8 % (0-4.4) Baso % (Auto) 0.4 % (0.2-1.2) Lymph # (Auto) 1.02 K/mm3 (0.9-3.2) Redwood # (Auto) 0.8 H K/mm3 (0.1-0.6) Eos # (Auto) 0.1 K/mm3 (0-0.3) Baso # (Auto) 0.1 K/mm3 (0.0-0.1) Abs Immat Gran (auto) 0.13 H K/mm3 (0.00-0.031) Absolute Neuts (auto) 12.1 H K/mm3 (1.3-6.7) Absolute Nucleated RBC 0.000 K/mm3 (0.0-0.012) Nucleated RBC % 0.0 % (0.0-0.2) PT 14.5 Seconds (11.1-14.7) INR 1.1 APTT 25.0 Seconds (22.3-36.8) Sodium 134 L mmol/L (137-145) Potassium 4.7 mmol/L (3.4-5.0) Chloride 99 mmol/L (98-107) Carbon Dioxide 24 mmol/L (22-30) Anion Gap 11 mmol/L (4-12) BUN 19 mg/dL (9-20) Creatinine 1.00 mg/dL (0.7-1.3) Estim Creat Clear Calc 57 ml/min Estimated GFR > 60 (59 - ) Glucose 227 H mg/dL (65-110) POC Capillary Glucose 176 H mg/dl (65-105) Calcium 8.7 mg/dL (8.4-10.2) Total Bilirubin 0.6 mg/dL (0.2-1.3) AST 28 U/L (17-59) ALT 21 U/L (6-50) Alkaline Phosphatase 62 U/L (38-126) Total Protein 8.0 g/dL (6.3-8.2) Albumin 4.3 g/dL (3.5-5.1) Blood Type A Negative Antibody Screen Negative Patient hx anesthesia problems: none Family hx anesthesia problems: none Results Review: All pre-operative results and documents have been reviewed as par
--- NOTE | 2023-11-27 11:43 | WPDHPUPDATE1 ---
History and Physical Update Update Date/Time: 11/27/23 11:43 History and Physical has been reviewed, including an updated exam of the patient. There are NO changes in the patient's condition. Risks, benefits, and alternatives have been discussed and questions answered. Patient agrees to proceed with procedure.
[2023-11-27] MEDS: ceFAZolin 2 GM/D5W 50 ML 2 GM/50 ML BAG IVPB ×2 (11:58→20:39)
[2023-11-27] MEDS: BUPIVACAINE/EPINEPHRINE 0.5% 50 ML VIAL 20 ML INFILTRATE (12:46)
--- NOTE | 2023-11-27 13:56 | SUR.PHASEI ---
Dr. Odom aware of BG 201. No treatment at this time.
[2023-11-27 13:57] LABS: Glucose Point of Care 201 mg/dl (65-105)
--- NOTE | 2023-11-27 14:08 | W.PM.PROC2 ---
Procedure Note - Detailed Date of Procedure 11/27/23 Pre-op Diagnosis Intertroch femur fracture Post-op Diagnosis Same Procedure Performed Right hip reduction with trochanteric Intramedullary nail hip screw fixation. Surgeon Santos Cristina MD Zipper Joiner 1st assistant professor of surgery Anesthesia General Indications 78-year-old man who fell at home and sustained right hip intertrochanteric fracture. Presents for operative treatment. Findings Large femoral intramedullary canal. Comminuted fracture with extension to the base of the femoral neck. Description of Procedure After informed consent the operative extremity was marked in the preoperative holding area. Patient received intravenous antibiotics. The patient was taken to the operative room, placed in the supine position, general anesthesia induced by the anesthesia team, and was placed on a fracture table with longitudinal traction applied to the right leg. The non operative leg was extended out of the field. The hip fracture was reduced to near anatomic position and verified with image intensification. A time-out was performed confirming the patient, site of the surgery and plan. The right lower extremity was prepped and draped sterilely from the knee to the iliac crest region using a ChloraPrep skin solution. Incision was made just proximal to greater trochanter down to the subcutaneous tissues. Hemostasis controlled with electrocautery. Blunt dissection through the fascia to the tip of the greater trochanter. A starter awl was placed at the tip of the greater trochanter into the medullary canal of the femur. This was checked with image intensification and was in good position. Intramedullary guide davina positioned. A one-step hand reaming done proximally. Intramedullary canal was reamed with a 12.5 millimeter flexible reamer. Measuring was then performed off of the guide davina. Neck angle selected off of preoperative radiographs temp plating. 125 degree 11.0 X 390mm Nail opened on the back table and assembled. This was then inserted over the guide davina to the correct depth. Guide davina removed. Lag screw was then placed with a stab incision over the lateral femur using a 10 blade knife. Blunt dissection down to the lateral side of the bone. Soft tissue protectors placed. Guide pin placed in the center center position of the femoral head and measured. 110 millimeter x 10 millimeter lag screw placed to correct depth and verified with image intensification. Traction then released from the leg and compression of the fracture performed with the external compression device. Proximal locking deployed. Distal locking of the nail Then performed. Image intensification used to assist in positioning the drill. Drill measure and appropriate size screw placed to lock the nail. Final image intensification confirm reduction of the fracture and placement of the hardware. Wounds then thoroughly irrigated with antibiotic solution. Fascia repaired with 0 Vicryl interrupted suture. Subcutaneous tissue repaired with 3-0 Monocryl interrupted suture. Skin approximated with Dermabond. Sterile dressings applied. Patient then awoke from anesthesia, extubated taken to recovery room stable condition. All sponge, needle and instrument counts correct at the end the case. Implants Arthrex trochanteric nail 390 mm length by 11 mm with 125 degree. 10 x 110 mm lag screw and 42 mm x 5 mm locking screw. Estimated Blood Loss 200 Tourniquet Time Total Tourniquet Time: 0 Drains No Packing No Pathology None sent Complications None Condition Stable Disposition PACU [facility] Billing Surgery - Charge Forward: Surgery Billing ([id number])
[2023-11-27 16:43] LABS: Glucose Point of Care 220 mg/dl (65-105)
[2023-11-27] MEDS: SENNA/DOCUSATE SODIUM TABLET 2 TAB PO (17:29)
[2023-11-27] MEDS: VALSARTAN 80 MG TABLET PO (17:29)
[2023-11-27] MEDS: ACETAMINOPHEN 325 MG TABLET 650 MG PO ×2 (17:29→23:30)
[2023-11-27] MEDS: PRAVASTATIN SODIUM 20 MG TABLET PO (17:29)
[2023-11-27] MEDS: HYDROcodone/acetaminophen (*CRX) 5-325 MG TABLET 1 TAB PO (20:36)
[2023-11-27] MEDS: ASPIRIN 81 MG ENTERIC TABLET PO (20:37)
[2023-11-27] MEDS: NORTRIPTYLINE HCL 25 MG CAPSULE PO (20:37)
[2023-11-27] MEDS: FLUoxetine HCL 10 MG CAPSULE PO (20:38)
[2023-11-27] MEDS: GABAPENTIN 300 MG CAPSULE PO (20:38)
--- NOTE | 2023-11-27 21:27 | PC.NURSE ---
Pt unable to ambulate because of his pain. Patient did stand up twice at the side of the bed with assistance x2, but had to quickly sit down. Pt sat up on side of bed for a few minutes before lying back down in bed. hip precautions in place. pain meds administered per APR
[2023-11-27 22:11] LABS: Glucose Point of Care 272 mg/dl (65-105)
[2023-11-28] VITALS (10 sets, daily range): BP systolic 100–127; BP diastolic 54–81; PULSE 88–101; RESP 12–22; TEMP 34.8–37.3; O2SAT 85–100
[2023-11-28] MEDS: hydrOXYzine pamoate 25 MG CAPSULE 50 MG PO (02:01)
[2023-11-28] MEDS: HYDROcodone/acetaminophen (*CRX) 5-325 MG TABLET 1 TAB PO ×2 (02:01→09:12)
[2023-11-28] MEDS: HYDROmorphone HCL INJ (*CRX) 1 MG/ML SYR IV PUSH ×3 (03:28→21:44)
[2023-11-28] MEDS: ceFAZolin 2 GM/D5W 50 ML 2 GM/50 ML BAG IVPB ×2 (03:30→13:20)
[2023-11-28] MEDS: ACETAMINOPHEN 325 MG TABLET 650 MG PO ×4 (06:39→23:34)
[2023-11-28 06:58] LABS: Basophils Percent Auto 0.3 % (0.2-1.2); Eosinophils Percent Auto 0.2 % (0-4.4); Hematocrit 29.8 % (42.0-52.0); Hemoglobin 10.1 g/dL (14.0-18.0); Immature Granulocyte Absolute 0.06 K/mm3 (0.00-0.031); Immature Granulocyte Percent A 0.5 % (0-0.5); Lymphocytes Absolute Auto 0.83 K/mm3 (0.9-3.2); Lymphocytes Percent Auto 7.6 % (18.3-44.2); Mean Corpuscular HGB Conc 33.9 g/dl (32-36); Mean Corpuscular Hemoglobin 30.1 pg (26-34); Mean Platelet Volume 9.8 fl (7.4-10.4); Monocytes Absolute Auto 1.5 K/mm3 (0.1-0.6); Monocytes Percent Auto 13.5 % (2.6-8.5); Neutrophils Absolute Auto 8.5 K/mm3 (1.3-6.7); Neutrophils Percent Auto 77.9 % (45.5-73.1); Platelet Count Result 246 k/mm3 (150-375); Red Blood Count 3.35 M/mm3 (4.6-6.20); Red Cell Distribution Width 13.2 % (11.5-14.5); White Blood Count 10.9 K/mm3 (4.5-10.0)
[2023-11-28 07:08] LABS: Anion Gap 7 mmol/L (4-12); Blood Urea Nitrogen 30 mg/dL (9-20); Calcium 8.1 mg/dL (8.4-10.2); Carbon Dioxide 26 mmol/L (22-30); Chloride 101 mmol/L (98-107); Estimated CRCL calculation 48 ml/min; Estimated Glomerular Filt Rate 59; Glucose 192 mg/dL (65-110); Potassium 4.2 mmol/L (3.4-5.0); Sodium 134 mmol/L (137-145)
--- NOTE | 2023-11-28 07:43 | PM.PNORT ---
Progress Note: A&P Assessment and Plan (1) Closed intertrochanteric fracture of right hip: Qualifiers: Encounter type: subsequent encounter Fracture alignment: displaced Fracture healing: with routine healing Qualified Code(s): S72.141D - Displaced intertrochanteric fracture of right femur, subsequent encounter for closed fracture with routine healing Code(s): S72.141A - Displaced intertrochanteric fracture of right femur, initial encounter for closed fracture Status: Acute Assessment and Plan: Postoperative day 1 right hip trochanteric nail. Acute blood loss anemia, monitor vitals. Stable at this time. PT/OT with weight-bearing as tolerated. DVT prophylaxis with SCDs and Arixtra Will transition to aspirin at discharge. Pain control. Dispo when medically stable. Subjective Subjective Date/Time Seen: 11/28/23 07:43 Post Op day: 1 Principal diagnosis: Right hip intertrochanteric fracture Interval history: 78-year-old postoperative day 1 right hip trochanteric nail. Resting comfortably. No acute distress. Complains of mild right hip pain. Exam Const: General: healthy appearing; No in distress or confusion Orientation/consciousness: patient oriented x3 and No confusion HENMT: Head: normal to inspection, normocephalic and atraumatic Eyes: Conjunctivae: conjunctivae normal Sclera: sclerae normal Resp: Effort & Inspection: normal respiratory effort and no audible wheezes Neuro: General: patient oriented x3 and No confusion Extrem: Other: Right hip incisions clean dry and intact. Right foot good capillary refill. Negative Homans. Weak ankle dorsiflexion as noted preoperatively. Psych: Affect: normal affect Objective Data Vital Signs Vital Signs: Vital Signs - 24 hr 11/27/23 09:39 11/27/23 08:00 11/27/23 11:46 Temperature 99.9 F H Pulse Rate 86 Respiratory Rate Blood Pressure 121/57 L Pulse Oximetry 96 96 Oxygen Delivery Room Air Room Air Room Air Oxygen Flow Rate Fraction of Inspired Oxygen 21 11/27/23 13:35 11/27/23 13:50 11/27/23 14:05 Temperature 98.0 F Pulse Rate 82 83 84 Respiratory Rate 12 12 10 L Blood Pressure 107/57 L 130/65 145/69 H Pulse Oximetry 98 99 100 Oxygen Delivery Simple Face Mask Simple Face Mask Simple Face Mask Oxygen Flow Rate 8 10 10 Fraction of Inspired Oxygen 11/27/23 14:20 10/09/24 14:26 11/27/23 14:35 Temperature Pulse Rate 85 89 86 Respiratory Rate 12 13 12 Blood Pressure 141/82 H 141/82 H 146/60 H Pulse Oximetry 100 100 93 Oxygen Delivery Simple Face Mask Room Air Room Air Oxygen Flow Rate 10 Fraction of Inspired Oxygen 11/27/23 14:50 11/27/23 14:57 11/27/23 15:12 Temperature 96.7 F L 96.7 F L Pulse Rate 85 88 89 Respiratory Rate 12 16 16 Blood Pressure 129/61 126/60 118/58 L Pulse Oximetry 95 94 95 Oxygen Delivery Room Air Oxygen Flow Rate Fraction of Inspired Oxygen 11/27/23 15:42 11/27/23 16:42 11/27/23 20:42 Temperature 97.3 F L 97.6 F 97.8 F Pulse Rate 89 93 103 H Respiratory Rate 18 18 18 Blood Pressure 135/71 142/62 H 137/67 Pulse Oximetry 94 94 98 Oxygen Delivery Oxygen Flow Rate Fraction of Inspired Oxygen 11/27/23 20:00 11/28/23 00:42 11/28/23 04:42 Temperature 97.6 F 97.6 F Pulse Rate 101 H 98 Respiratory Rate 18 20 Blood Pressure 127/81 115/56 L Pulse Oximetry 98 94 Oxygen Delivery Room Air Oxygen Flow Rate Fraction of Inspired Oxygen 11/28/23 05:20 11/28/23 05:21 Temperature Pulse Rate Respiratory Rate Blood Pressure Pulse Oximetry 85 L 94 Oxygen Delivery Room Air Nasal Cannula Oxygen Flow Rate 2 Fraction of Inspired Oxygen Intake/Output Intake/Output: Intake & Output 11/25/23 11/26/23 11/27/23 11/28/23 23:59 23:59 23:59 23:59 Intake Total 890 100 Output Total 650 500 Balance 240 -400 Meds/Results Medications: Active Medications Generic Name Dose Route St
[2023-11-28 07:51] LABS: Glucose Point of Care 209 mg/dl (65-105)
[2023-11-28] MEDS: FERROUS SULFATE 325 MG TABLET DR PO (08:59)
[2023-11-28] MEDS: CELECOXIB 200 MG CAPSULE PO (09:00)
[2023-11-28] MEDS: SENNA/DOCUSATE SODIUM TABLET 2 TAB PO ×2 (09:00→16:40)
[2023-11-28] MEDS: polyethylene glycoL 3350 17 GM POWD.PACK PO (09:00)
[2023-11-28] MEDS: INSULIN ASPART (*BKC) 100 UNITS/ML SUB-Q ×3 (09:02→16:44)
[2023-11-28] MEDS: FONDAPARINUX SODIUM 2.5 MG/0.5 ML SYRINGE SUB-Q (09:02)
[2023-11-28] MEDS: IBUPROFEN IV 800 MG/200 ML 800 MG/200 ML BAG 400 MG IVPB (09:13)
--- NOTE | 2023-11-28 10:19 | PM.IMPN ---
Progress Note: A&P Assessment and Plan (1) Closed intertrochanteric fracture: Qualifiers: Encounter type: subsequent encounter Fracture alignment: displaced Fracture healing: with routine healing Laterality: right Qualified Code(s): S72.141D - Displaced intertrochanteric fracture of right femur, subsequent encounter for closed fracture with routine healing Code(s): S72.143A - Displaced intertrochanteric fracture of unspecified femur, initial encounter for closed fracture Status: Deleted Assessment and Plan: admit to regular medical floor bed rest pain management ortho consult 11/26- Right hip reduction with trochanteric Intramedullary nail hip screw fixation. 11/27- PT/OT ordered, pain control, bowel regimen- miralax daily 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: Code(s): I69.398 - Other sequelae of cerebral infarction; R29.818 - Other symptoms and signs involving the nervous system Status: Acute Assessment and Plan: right hemiparesis (5) Neuropathy: Code(s): G62.9 - Polyneuropathy, unspecified Status: Acute Assessment and Plan: continue gabapentin (6) Essential hypertension: Code(s): I10 - Essential (primary) hypertension Status: Acute Assessment and Plan: resume home med (7) T2DM (type 2 diabetes mellitus): Code(s): E11.9 - Type 2 diabetes mellitus without complications Status: Acute Assessment and Plan: will hold glipizide and Glucophage insulin sliding scale as needed - hypoglycemia protocol Plan SVT prophylaxis per ortho: DVT prophylaxis with SCDs and Arixtra Will transition to aspirin at discharge. Time Spent With Patient Time with patient: Greater than 35 minutes Subjective Date/time seen: 11/28/23 10:19 Interval history: 78-year-old postoperative day 1 right hip trochanteric nail 11/26. No acute events overnight . Reports mild right hip pain- just got pain med. Reports no nausea. Review of Systems Review of Systems: Fall, right lower extremity pain at the hip and with movement Exam Narrative: patient is laying in a stretcher Const: General: comfortable, no acute distress, well developed, alert, awake and average body habitus Nutritional Appearance: average body habitus Orientation/consciousness: patient oriented x3 HENMT: Head: normal to inspection, normocephalic and atraumatic Ears: hearing grossly normal bilaterally Other: right facial droop Eyes: General: appearance normal, both eyes and all related structures Pupils: Equal, round and reactive pupils present EOM: EOMs intact bilaterally Neck: Neck: full ROM, no lymphadenopathy and no JVD Thyroid: thyroid normal Lymphatic: no lymphadenopathy noted Resp: Effort & Inspection: normal respiratory effort and able to speak in complete sentences Auscultation: clear to auscultation bilaterally Cardio: Jugular venous distension: no JVD Rate: regular rate Rhythm: regular rhythm Heart sounds: S1 normal heart sound present and S2 normal heart sound present : General: Yes deferred Skin: Rashes: no rashes Wounds: no wounds Neuro: General: patient oriented x3, CN's II-XI intact bilaterally and Unable to assess gait Cranial nerves: Yes CN's II-XII intact bilaterally and Yes Equal, round and reactive pupils present Cognition (Neuro): normal cognition Speech: normal speech Gait exam (Neuro): Unab
--- NOTE | 2023-11-28 11:06 | P.PNAN_ITS ---
Anes - Prog Note Post-Op Date/Time: 11/28/23 11:06 Cardiovascular status: normal Respiratory status: normal Airway patency: baseline Mental status: baseline Post-Op hydration status: normal Vital Signs: Last Vital Signs Temp 36.1 C L 11/28/23 08:42 Pulse 100 11/28/23 08:42 Resp 16 11/28/23 08:42 BP 100/60 11/28/23 08:42 Pulse Ox 100 11/28/23 08:42 O2 Del Method Nasal Cannula 11/28/23 08:30 O2 Flow Rate 1 11/28/23 08:30 FiO2 21 11/27/23 09:39 Pain Score (VAS): 2 I/O: Intake & Output 11/27/23 11/28/23 11/28/23 23:59 07:59 15:59 Intake Total 290 100 240 Output Total 200 500 Balance 90 -400 240 Laboratory Tests 11/28/23 06:34 11/28/23 06:34 11/27/23 11/27/23 11/27/23 13:53 16:41 21:05 WBC RBC Hgb Hct MCV MCH MCHC RDW Plt Count MPV Immature Gran % (Auto) Neut % (Auto) Lymph % (Auto) Campbell % (Auto) Eos % (Auto) Baso % (Auto) Lymph # (Auto) Campbell # (Auto) Eos # (Auto) Baso # (Auto) Abs Immat Gran (auto) Absolute Neuts (auto) Absolute Nucleated RBC Nucleated RBC % Sodium Potassium Chloride Carbon Dioxide Anion Gap BUN Creatinine Estim Creat Clear Calc Estimated GFR Glucose POC Capillary Glucose 201 H 220 H 272 H Calcium 11/28/23 11/28/23 06:34 07:48 WBC 10.9 H RBC 3.35 L Hgb 10.1 L D Hct 29.8 L MCV 89.0 MCH 30.1 MCHC 33.9 RDW 13.2 Plt Count 246 MPV 9.8 Immature Gran % (Auto) 0.5 Neut % (Auto) 77.9 H Lymph % (Auto) 7.6 L Campbell % (Auto) 13.5 H Eos % (Auto) 0.2 Baso % (Auto) 0.3 Lymph # (Auto) 0.83 L Campbell # (Auto) 1.5 H Eos # (Auto) 0.0 Baso # (Auto) 0.0 Abs Immat Gran (auto) 0.06 H Absolute Neuts (auto) 8.5 H Absolute Nucleated RBC 0.000 Nucleated RBC % 0.0 Sodium 134 L Potassium 4.2 Chloride 101 Carbon Dioxide 26 Anion Gap 7 BUN 30 H D Creatinine 1.20 Estim Creat Clear Calc 48 Estimated GFR 59 Glucose 192 H POC Capillary Glucose 209 H Calcium 8.1 L Post-procedural complaints: none Patient Feedback: Patient satisfied with anesthetic care.
[2023-11-28 11:57] LABS: Glucose Point of Care 237 mg/dl (65-105)
[2023-11-28] MEDS: PANTOPRAZOLE 40 MG TABLET PO (13:21)
[2023-11-28] MEDS: PRAVASTATIN SODIUM 20 MG TABLET PO (16:40)
[2023-11-28 16:56] LABS: Glucose Point of Care 277 mg/dl (65-105)
[2023-11-28 21:11] LABS: Glucose Point of Care 203 mg/dl (65-105)
[2023-11-28] MEDS: FLUoxetine HCL 10 MG CAPSULE PO (21:44)
[2023-11-28] MEDS: GABAPENTIN 300 MG CAPSULE PO (21:44)
[2023-11-28] MEDS: ASPIRIN 81 MG ENTERIC TABLET PO (21:44)
[2023-11-28] MEDS: NORTRIPTYLINE HCL 25 MG CAPSULE PO (21:44)
[2023-11-29 00:13] VITALS: BP 124/65; PULSE 99; RESP 22; TEMP 36.2; O2SAT 94
[2023-11-29] MEDS: HYDROmorphone HCL INJ (*CRX) 1 MG/ML SYR IV PUSH (02:01)
[2023-11-29 04:24] VITALS: BP 115/54; PULSE 104; RESP 22; TEMP 35.9; O2SAT 92
[2023-11-29] MEDS: ACETAMINOPHEN 325 MG TABLET 650 MG PO ×4 (05:54→23:03)
[2023-11-29 07:54] LABS: Glucose Point of Care 199 mg/dl (65-105)
[2023-11-29] MEDS: polyethylene glycoL 3350 17 GM POWD.PACK PO (08:53)
[2023-11-29] MEDS: CELECOXIB 200 MG CAPSULE PO (08:54)
[2023-11-29] MEDS: SENNA/DOCUSATE SODIUM TABLET 2 TAB PO ×2 (08:54→17:29)
[2023-11-29] MEDS: FERROUS SULFATE 325 MG TABLET DR PO (08:54)
[2023-11-29] MEDS: FONDAPARINUX SODIUM 2.5 MG/0.5 ML SYRINGE SUB-Q (08:56)
[2023-11-29] MEDS: INSULIN ASPART (*BKC) 100 UNITS/ML SUB-Q ×3 (08:56→17:29)
[2023-11-29] MEDS: HYDROcodone/acetaminophen (*CRX) 5-325 MG TABLET 1 TAB PO ×3 (09:06→21:47)
[2023-11-29 09:10] LABS: Basophils Percent Auto 0.4 % (0.2-1.2); Eosinophils Absolute Auto 0.2 K/mm3 (0-0.3); Eosinophils Percent Auto 1.7 % (0-4.4); Hematocrit 30.8 % (42.0-52.0); Hemoglobin 10.1 g/dL (14.0-18.0); Immature Granulocyte Absolute 0.09 K/mm3 (0.00-0.031); Immature Granulocyte Percent A 0.9 % (0-0.5); Lymphocytes Absolute Auto 0.82 K/mm3 (0.9-3.2); Lymphocytes Percent Auto 8.4 % (18.3-44.2); Mean Corpuscular HGB Conc 32.8 g/dl (32-36); Mean Corpuscular Hemoglobin 29.4 pg (26-34); Mean Corpuscular Volume 89.8 fl (80-100); Mean Platelet Volume 9.4 fl (7.4-10.4); Monocytes Absolute Auto 1.1 K/mm3 (0.1-0.6); Monocytes Percent Auto 11.5 % (2.6-8.5); Neutrophils Absolute Auto 7.5 K/mm3 (1.3-6.7); Neutrophils Percent Auto 77.1 % (45.5-73.1); Platelet Count Result 256 k/mm3 (150-375); Red Blood Count 3.43 M/mm3 (4.6-6.20); Red Cell Distribution Width 13.1 % (11.5-14.5); White Blood Count 9.7 K/mm3 (4.5-10.0)
[2023-11-29 09:20] LABS: Alanine Aminotransferase 14 U/L (6-50); Albumin Level 3.5 g/dL (3.5-5.1); Alkaline Phosphatase 63 U/L (38-126); Anion Gap 7 mmol/L (4-12); Aspartate Amino Transferase 29 U/L (17-59); Bilirubin,Total 0.9 mg/dL (0.2-1.3); Blood Urea Nitrogen 31 mg/dL (9-20); Calcium 8.3 mg/dL (8.4-10.2); Carbon Dioxide 28 mmol/L (22-30); Chloride 98 mmol/L (98-107); Estimated CRCL calculation 57 ml/min; Estimated Glomerular Filt Rate > 60; Glucose 207 mg/dL (65-110); Sodium 133 mmol/L (137-145)
--- NOTE | 2023-11-29 11:18 | PCPTNOTE ---
The patient treatment was not able to be completed at this time due to patient out of room for testing. Will plan to continue treatment per plan of care.
[2023-11-29 11:59] LABS: Glucose Point of Care 206 mg/dl (65-105)
[2023-11-29] MEDS: LIDOCAINE 5% PATCH 1 PATCH TRANSDERM (12:34)
--- NOTE | 2023-11-29 12:39 | PM.PNORT ---
Progress Note: A&P Assessment and Plan (1) Closed intertrochanteric fracture of right hip: Qualifiers: Encounter type: subsequent encounter Fracture alignment: displaced Fracture healing: with routine healing Qualified Code(s): S72.141D - Displaced intertrochanteric fracture of right femur, subsequent encounter for closed fracture with routine healing Code(s): S72.141A - Displaced intertrochanteric fracture of right femur, initial encounter for closed fracture Status: Acute Assessment and Plan: POD #2: Right hip trochanteric nail. Acute blood loss anemia, monitor vitals. Stable at this time. PT/OT with weight-bearing as tolerated. DVT prophylaxis with SCDs and Arixtra. Will transition to aspirin at discharge. Pain control. Dispo when medically stable. Subjective Subjective Date/Time Seen: 11/29/23 12:39 Post Op day: 2 Principal diagnosis: Right hip intertrochanteric fracture Interval history: 78-year-old postoperative day 2 right hip trochanteric nail. Resting comfortably. No acute distress. Complains of mild right hip pain. C/o calf pain per reports. Doppler negative today. Review of Systems Review of Systems: All systems reviewed & are unremarkable except as noted in HPI and below Exam Const: General: healthy appearing; No in distress or confusion Orientation/consciousness: patient oriented x3 and No confusion HENMT: Head: normal to inspection, normocephalic and atraumatic Eyes: Conjunctivae: conjunctivae normal Sclera: sclerae normal Resp: Effort & Inspection: normal respiratory effort and no audible wheezes Neuro: General: patient oriented x3 and No confusion Extrem: Other: Right hip incisions clean dry and intact. Right foot good capillary refill. Negative Homans. Weak ankle dorsiflexion as noted preoperatively. Psych: Affect: normal affect Objective Data Vital Signs Vital Signs: Vital Signs - 24 hr 11/28/23 12:42 11/28/23 16:42 11/28/23 20:01 Temperature 34.8 C L 36.6 C 37.3 C Pulse Rate 92 88 90 Respiratory Rate 18 18 12 Blood Pressure 125/57 L 105/54 L 113/57 L Pulse Oximetry 99 95 95 Oxygen Delivery Fraction of Inspired Oxygen 11/29/23 00:13 11/28/23 20:00 11/29/23 04:24 Temperature 36.2 C L 35.9 C L Pulse Rate 99 99 104 H Respiratory Rate 22 H 22 H 22 H Blood Pressure 124/65 115/54 L Pulse Oximetry 94 94 92 Oxygen Delivery Room Air Fraction of Inspired Oxygen 21 11/29/23 09:00 Temperature Pulse Rate Respiratory Rate Blood Pressure Pulse Oximetry Oxygen Delivery Room Air Fraction of Inspired Oxygen Intake/Output Intake/Output: Intake & Output 11/26/23 11/27/23 11/28/23 11/29/23 23:59 23:59 23:59 23:59 Intake Total 890 1370 550 Output Total 650 500 150 Balance 240 870 400 Meds/Results Medications: Active Medications Generic Name Dose Route Start Last Admin Trade Name Freq PRN Reason Stop Dose Admin Acetaminophen 650 mg 11/27/23 18:00 11/29/23 05:54 Acetaminophen 325 Mg Tablet PO 650 mg Q6HR ON LICENSE OF [facility] Administration Hydrocodone Bitart/Acetaminophen 1 tab 11/27/23 14:57 11/29/23 09:06 Hydrocodone/Acetaminophen (*Crx) 5-325 Mg Tablet PO 1 tab Q4H PRN Administration Pain Rated 4-6 Amlodipine Besylate 10 mg 11/27/23 12:00 11/28/23 13:32 Amlodipine Besylate 10 Mg Tablet PO Not Given DAILY@1200 ON LICENSE OF [facility] Aspirin 81 mg 11/27/23 21:00 11/28/23 21:44 Aspirin 81 Mg Enteric Tablet PO 81 mg HS ON LICENSE OF [facility] Administration Atenolol 50 mg 11/27/23 12:00 11/28/23 13:32 Atenolol 50 Mg Tablet PO Not Given DAILY@1200 ON LICENSE OF [facility] Celecoxib 200 mg 11/28/23 08:00 11/29/23 08:54 Celecoxib 200 Mg Capsule PO 200 mg DAILY@0800 ON LICENSE OF [facility] Administration Dextrose 12.5 gm 11/27/23 15:46 Dextrose 50% 25 Gm/50 Ml Syringe IV PUSH PRN PRN Hypoglycemia Protocol Ferrous Sulfate 325 mg 11/27/23 09:00 11/29/23 08:54 Ferrous Sulfate 3
[2023-11-29 12:57] VITALS: PULSE 75
[2023-11-29] MEDS: PANTOPRAZOLE 40 MG TABLET PO (12:59)
--- NOTE | 2023-11-29 13:41 | PM.IMPN ---
Progress Note: A&P Assessment and Plan (1) Closed intertrochanteric fracture: Qualifiers: Encounter type: subsequent encounter Fracture alignment: displaced Fracture healing: with routine healing Laterality: right Qualified Code(s): S72.141D - Displaced intertrochanteric fracture of right femur, subsequent encounter for closed fracture with routine healing Code(s): S72.143A - Displaced intertrochanteric fracture of unspecified femur, initial encounter for closed fracture Status: Deleted Assessment and Plan: admit to regular medical floor bed rest pain management ortho consult 11/26- Right hip reduction with trochanteric Intramedullary nail hip screw fixation. 11/27- PT/OT ordered, pain control, bowel regimen- miralax daily 11/28- pain is tolerable 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: Code(s): I69.398 - Other sequelae of cerebral infarction; R29.818 - Other symptoms and signs involving the nervous system Status: Acute Assessment and Plan: right hemiparesis (5) Neuropathy: Code(s): G62.9 - Polyneuropathy, unspecified Status: Acute Assessment and Plan: continue gabapentin (6) Essential hypertension: Code(s): I10 - Essential (primary) hypertension Status: Acute Assessment and Plan: resume home med (7) T2DM (type 2 diabetes mellitus): Code(s): E11.9 - Type 2 diabetes mellitus without complications Status: Acute Assessment and Plan: will hold glipizide and Glucophage insulin sliding scale as needed - hypoglycemia protocol Plan SVT prophylaxis per ortho: DVT prophylaxis with SCDs and Arixtra Will transition to aspirin at discharge. Time Spent With Patient Time with patient: Greater than 35 minutes Subjective Date/time seen: 11/29/23 13:41 Interval history: Right hip trochanteric nail 11/26. No acute events overnight . Reports right calf pain. Negative Doppler. Worked with PT/OT. Using lidocaine today to chronic sciatica pain. Review of Systems Review of Systems: Fall, right lower extremity pain at the hip and with movement Exam Narrative: patient is laying in a stretcher Const: General: comfortable, no acute distress, well developed, alert, awake and average body habitus Nutritional Appearance: average body habitus Orientation/consciousness: patient oriented x3 HENMT: Head: normal to inspection, normocephalic and atraumatic Ears: hearing grossly normal bilaterally Other: right facial droop Eyes: General: appearance normal, both eyes and all related structures Pupils: Equal, round and reactive pupils present EOM: EOMs intact bilaterally Neck: Neck: full ROM, no lymphadenopathy and no JVD Thyroid: thyroid normal Lymphatic: no lymphadenopathy noted Resp: Effort & Inspection: normal respiratory effort and able to speak in complete sentences Auscultation: clear to auscultation bilaterally Cardio: Jugular venous distension: no JVD Rate: regular rate Rhythm: regular rhythm Heart sounds: S1 normal heart sound present and S2 normal heart sound present : General: Yes deferred Skin: Rashes: no rashes Wounds: no wounds Neuro: General: patient oriented x3, CN's II-XI intact bilaterally and Unable to assess gait Cranial nerves: Yes CN's II-XII intact bilaterally and Yes Equal, round and reactive pupils present Cognition (Neuro): normal cognition Speech: no
[2023-11-29 13:42] VITALS: BP 113/45; PULSE 75; RESP 16; O2SAT 97
[2023-11-29 16:51] LABS: Glucose Point of Care 206 mg/dl (65-105)
[2023-11-29] MEDS: VALSARTAN 80 MG TABLET PO (17:29)
[2023-11-29] MEDS: PRAVASTATIN SODIUM 20 MG TABLET PO (17:29)
[2023-11-29 19:59] LABS: Glucose Point of Care 238 mg/dl (65-105)
[2023-11-29 20:24] VITALS: BP 129/65; PULSE 95; RESP 18; TEMP 36.4; O2SAT 95
[2023-11-29] MEDS: GABAPENTIN 300 MG CAPSULE PO (21:47)
[2023-11-29] MEDS: ASPIRIN 81 MG ENTERIC TABLET PO (21:47)
[2023-11-29] MEDS: FLUoxetine HCL 10 MG CAPSULE PO (21:47)
[2023-11-29] MEDS: NORTRIPTYLINE HCL 25 MG CAPSULE PO (21:47)
[2023-11-29] MEDS: MORPHINE SULFATE (*CRX) 2 MG/ML INJ IV PUSH (23:04)
[2023-11-30] VITALS (7 sets, daily range): BP systolic 108–135; BP diastolic 52–77; PULSE 68–101; RESP 16–20; TEMP 36.2–36.9; O2SAT 96–100
[2023-11-30] MEDS: HYDROcodone/acetaminophen (*CRX) 5-325 MG TABLET 1 TAB PO ×3 (01:49→21:31)
[2023-11-30] MEDS: ACETAMINOPHEN 325 MG TABLET 650 MG PO ×3 (05:49→17:21)
[2023-11-30 08:04] LABS: Glucose Point of Care 234 mg/dl (65-105)
[2023-11-30] MEDS: LIDOCAINE 5% PATCH 1 PATCH TRANSDERM (08:27)
[2023-11-30] MEDS: SENNA/DOCUSATE SODIUM TABLET 2 TAB PO ×2 (08:27→17:21)
[2023-11-30] MEDS: CELECOXIB 200 MG CAPSULE PO (08:27)
[2023-11-30] MEDS: FERROUS SULFATE 325 MG TABLET DR PO (08:28)
[2023-11-30] MEDS: FONDAPARINUX SODIUM 2.5 MG/0.5 ML SYRINGE SUB-Q (08:28)
[2023-11-30] MEDS: polyethylene glycoL 3350 17 GM POWD.PACK PO (08:28)
[2023-11-30] MEDS: INSULIN ASPART (*BKC) 100 UNITS/ML SUB-Q ×4 (08:28→17:22)
--- NOTE | 2023-11-30 09:26 | PM.IMPN ---
Progress Note: A&P Assessment and Plan (1) Closed intertrochanteric fracture: Qualifiers: Encounter type: subsequent encounter Fracture alignment: displaced Fracture healing: with routine healing Laterality: right Qualified Code(s): S72.141D - Displaced intertrochanteric fracture of right femur, subsequent encounter for closed fracture with routine healing Code(s): S72.143A - Displaced intertrochanteric fracture of unspecified femur, initial encounter for closed fracture Status: Deleted Assessment and Plan: admit to regular medical floor bed rest pain management ortho consult 11/26- Right hip reduction with trochanteric Intramedullary nail hip screw fixation. 11/27- PT/OT ordered, pain control, bowel regimen- miralax daily 11/28- pain is tolerable 11/29- pt/ot, IS, follow ortho recommendation 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: Code(s): I69.398 - Other sequelae of cerebral infarction; R29.818 - Other symptoms and signs involving the nervous system Status: Acute Assessment and Plan: right hemiparesis (5) Neuropathy: Code(s): G62.9 - Polyneuropathy, unspecified Status: Acute Assessment and Plan: continue gabapentin (6) Essential hypertension: Code(s): I10 - Essential (primary) hypertension Status: Acute Assessment and Plan: resume home med (7) T2DM (type 2 diabetes mellitus): Code(s): E11.9 - Type 2 diabetes mellitus without complications Status: Acute Assessment and Plan: will hold glipizide and Glucophage insulin sliding scale as needed - hypoglycemia protocol Plan SVT prophylaxis per ortho: DVT prophylaxis with SCDs and Arixtra Will transition to aspirin at discharge. Time Spent With Patient Time with patient: Greater than 35 minutes Subjective Date/time seen: 11/30/23 09:26 Interval history: 78-year-old postoperative day 3 right hip trochanteric nail. No acute distress. Complains of mild right hip pain. C/o calf pain per reports. Doppler negative. Working with PT/OT, needs a lot of encouragement with IS. HIs chronic sciatica bothering him more than his recent surgery. Review of Systems Review of Systems: up in the chair today, pain is ok- just worked with pt/ot Exam Narrative: patient is laying in a stretcher Const: General: comfortable, no acute distress, well developed, alert, awake and average body habitus Nutritional Appearance: average body habitus Orientation/consciousness: patient oriented x3 HENMT: Head: normal to inspection, normocephalic and atraumatic Ears: hearing grossly normal bilaterally Other: right facial droop Eyes: General: appearance normal, both eyes and all related structures Pupils: Equal, round and reactive pupils present EOM: EOMs intact bilaterally Neck: Neck: full ROM, no lymphadenopathy and no JVD Thyroid: thyroid normal Lymphatic: no lymphadenopathy noted Resp: Effort & Inspection: normal respiratory effort and able to speak in complete sentences Auscultation: clear to auscultation bilaterally Cardio: Jugular venous distension: no JVD Rate: regular rate Rhythm: regular rhythm Heart sounds: S1 normal heart sound present and S2 normal heart sound present : General: Yes deferred Skin: Rashes: no rashes Wounds: no wounds Neuro: General: patient oriented x3, CN's II-XI intact bilaterally and Unable to assess gait
[2023-11-30 11:37] LABS: Glucose Point of Care 278 mg/dl (65-105)
[2023-11-30] MEDS: PANTOPRAZOLE 40 MG TABLET PO (12:17)
[2023-11-30] MEDS: amLODIPine BESYLATE 10 MG TABLET PO (12:18)
[2023-11-30] MEDS: atenoloL 50 MG TABLET PO (12:18)
[2023-11-30 16:43] LABS: Glucose Point of Care 240 mg/dl (65-105)
[2023-11-30] MEDS: PRAVASTATIN SODIUM 20 MG TABLET PO (17:33)
[2023-11-30] MEDS: VALSARTAN 80 MG TABLET PO (17:34)
[2023-11-30] MEDS: ASPIRIN 81 MG ENTERIC TABLET PO (21:28)
[2023-11-30] MEDS: GABAPENTIN 300 MG CAPSULE PO (21:29)
[2023-11-30] MEDS: NORTRIPTYLINE HCL 25 MG CAPSULE PO (21:29)
[2023-11-30] MEDS: FLUoxetine HCL 10 MG CAPSULE PO (21:29)
[2023-11-30] MEDS: INSULIN GLARGINE (*BKC) 100 UNITS/ML 10 UNITS SUB-Q (21:29)
[2023-11-30 21:52] LABS: Glucose Point of Care 247 mg/dl (65-105)
[2023-12-01] MEDS: MORPHINE SULFATE (*CRX) 2 MG/ML INJ IV PUSH (01:04)
[2023-12-01] MEDS: HYDROmorphone HCL INJ (*CRX) 1 MG/ML SYR IV PUSH (01:41)
[2023-12-01 02:01] VITALS: BP 129/69; PULSE 80; RESP 24; TEMP 36.2; O2SAT 96
[2023-12-01] MEDS: ACETAMINOPHEN 325 MG TABLET 650 MG PO ×4 (05:36→17:39)
[2023-12-01] MEDS: HYDROcodone/acetaminophen (*CRX) 5-325 MG TABLET 1 TAB PO ×3 (05:36→20:59)
[2023-12-01 05:45] VITALS: BP 138/68; PULSE 80; RESP 22; TEMP 36.8; O2SAT 100
--- NOTE | 2023-12-01 06:47 | PC.NURSE ---
Patient had high pain scores last night. Maspeth had little effect and so did his morphine. However, middle of the night his dilaudid proved to be very effective at bringing his 10/10 pain score down to a flacc score of 0, as he was resting comfortably in minutes.
[2023-12-01 07:38] LABS: Glucose Point of Care 213 mg/dl (65-105)
--- NOTE | 2023-12-01 08:29 | PM.IMPN ---
Progress Note: A&P Assessment and Plan (1) Closed intertrochanteric fracture: Qualifiers: Encounter type: subsequent encounter Fracture alignment: displaced Fracture healing: with routine healing Laterality: right Qualified Code(s): S72.141D - Displaced intertrochanteric fracture of right femur, subsequent encounter for closed fracture with routine healing Code(s): S72.143A - Displaced intertrochanteric fracture of unspecified femur, initial encounter for closed fracture Status: Deleted Assessment and Plan: admit to regular medical floor bed rest pain management ortho consult 11/26- Right hip reduction with trochanteric Intramedullary nail hip screw fixation. 11/27- PT/OT ordered, pain control, bowel regimen- miralax daily 11/28- pain is tolerable 11/29- pt/ot, IS, follow ortho recommendation 11/30- continue 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: Code(s): I69.398 - Other sequelae of cerebral infarction; R29.818 - Other symptoms and signs involving the nervous system Status: Acute Assessment and Plan: right hemiparesis (5) Neuropathy: Code(s): G62.9 - Polyneuropathy, unspecified Status: Acute Assessment and Plan: continue gabapentin (6) Essential hypertension: Code(s): I10 - Essential (primary) hypertension Status: Acute Assessment and Plan: resume home med (7) T2DM (type 2 diabetes mellitus): Code(s): E11.9 - Type 2 diabetes mellitus without complications Status: Acute Assessment and Plan: will hold glipizide and Glucophage insulin sliding scale as needed - hypoglycemia protocol - BS had been elevated- will add lantus 10 units and SS to ensure better BS control - will add lantus hs for better bs coverage as bs had been elevated Plan SVT prophylaxis per ortho: DVT prophylaxis with SCDs and Arixtra Will transition to aspirin at discharge. Time Spent With Patient Time with patient: Greater than 35 minutes Subjective Date/time seen: 12/01/23 08:29 Interval history: 78-year-old postoperative day 4 right hip trochanteric nail. No acute distress. Working with PT/OT, needs a lot of encouragement with IS. Care coordination working on placement. Anticipate discharge in the following few days. in bed, rates pain 7 but only takes tylenol- encouraged to take norco if pain is strong and/or working with pt/ot Review of Systems Review of Systems: in bed, rates pain 7- just worked with pt/ot Exam Const: General: comfortable, no acute distress, well developed, alert, awake and average body habitus Nutritional Appearance: average body habitus Orientation/consciousness: patient oriented x3 HENMT: Head: normal to inspection, normocephalic and atraumatic Ears: hearing grossly normal bilaterally Other: right facial droop Eyes: General: appearance normal, both eyes and all related structures Pupils: Equal, round and reactive pupils present EOM: EOMs intact bilaterally Neck: Neck: full ROM, no lymphadenopathy and no JVD Thyroid: thyroid normal Lymphatic: no lymphadenopathy noted Resp: Effort & Inspection: normal respiratory effort and able to speak in complete sentences Auscultation: clear to auscultation bilaterally Cardio: Jugular venous distension: no JVD Rate: regular rate Rhythm: regular rhythm Heart sounds: S1 normal heart sound present and S2 normal heart sound present BETO: Ayesha
[2023-12-01] MEDS: FERROUS SULFATE 325 MG TABLET DR PO (09:55)
[2023-12-01] MEDS: polyethylene glycoL 3350 17 GM POWD.PACK PO (09:55)
[2023-12-01] MEDS: INSULIN ASPART (*BKC) 100 UNITS/ML SUB-Q ×6 (09:55→17:56)
[2023-12-01] MEDS: CELECOXIB 200 MG CAPSULE PO (09:55)
[2023-12-01] MEDS: SENNA/DOCUSATE SODIUM TABLET 2 TAB PO ×2 (09:55→17:39)
[2023-12-01] MEDS: LIDOCAINE 5% PATCH 1 PATCH TRANSDERM (10:00)
[2023-12-01] MEDS: FONDAPARINUX SODIUM 2.5 MG/0.5 ML SYRINGE SUB-Q (10:01)
[2023-12-01 11:36] LABS: Glucose Point of Care 265 mg/dl (65-105)
[2023-12-01] MEDS: PANTOPRAZOLE 40 MG TABLET PO (12:06)
[2023-12-01] MEDS: atenoloL 50 MG TABLET PO (12:06)
[2023-12-01] MEDS: amLODIPine BESYLATE 10 MG TABLET PO (12:06)
[2023-12-01 13:57] VITALS: BP 118/42; PULSE 83; RESP 20; TEMP 36.6; O2SAT 97
[2023-12-01 16:27] LABS: Glucose Point of Care 254 mg/dl (65-105)
[2023-12-01] MEDS: VALSARTAN 80 MG TABLET PO (17:39)
[2023-12-01] MEDS: PRAVASTATIN SODIUM 20 MG TABLET PO (17:39)
[2023-12-01] MEDS: NORTRIPTYLINE HCL 25 MG CAPSULE PO (20:57)
[2023-12-01] MEDS: GABAPENTIN 300 MG CAPSULE PO (20:57)
[2023-12-01] MEDS: ASPIRIN 81 MG ENTERIC TABLET PO (20:57)
[2023-12-01] MEDS: FLUoxetine HCL 10 MG CAPSULE PO (20:57)
[2023-12-01] MEDS: INSULIN GLARGINE (*BKC) 100 UNITS/ML 15 UNITS SUB-Q (21:00)
[2023-12-01 21:15] LABS: Glucose Point of Care 292 mg/dl (65-105)
[2023-12-01 21:46] VITALS: BP 137/61; PULSE 69; RESP 18; TEMP 36.6; O2SAT 100
[2023-12-02] VITALS (8 sets, daily range): BP systolic 115–143; BP diastolic 57–77; PULSE 72–94; RESP 18–20; TEMP 35.7–36.5; O2SAT 91–99; BMI 10.0
[2023-12-02] MEDS: HYDROcodone/acetaminophen (*CRX) 5-325 MG TABLET 1 TAB PO ×4 (03:11→23:50)
[2023-12-02] MEDS: HYDROmorphone HCL INJ (*CRX) 1 MG/ML SYR IV PUSH (04:07)
[2023-12-02] MEDS: ACETAMINOPHEN 325 MG TABLET 650 MG PO ×4 (06:05→23:49)
[2023-12-02 08:10] LABS: Glucose Point of Care 204 mg/dl (65-105)
--- NOTE | 2023-12-02 08:38 | ECG_ITS ---
Test Date: 2023-12-02 08:48:20 Measurements Intervals [place] Rate: 74 P: 29 AK: 212 QRS: 1 QRSD: 101 T: 63 QT: 394 QTc: 438 Interpretive Statements SINUS RHYTHM WITH FIRST DEGREE AV BLOCK NONSPECIFIC T-WAVE ABNORMALITY No previous ECG available for comparison Electronically Signed On 12-02-2023 14:34:41 CDT by Steven Jean M.D.
[2023-12-02 08:46] LABS: Hemoglobin 10.8 g/dL (14.0-18.0); Mean Corpuscular HGB Conc 32.7 g/dl (32-36); Mean Corpuscular Hemoglobin 29.8 pg (26-34); Mean Corpuscular Volume 91.2 fl (80-100); Mean Platelet Volume 9.5 fl (7.4-10.4); Platelet Count Result 415 k/mm3 (150-375); Red Blood Count 3.62 M/mm3 (4.6-6.20); Red Cell Distribution Width 13.2 % (11.5-14.5)
[2023-12-02 09:01] LABS: Magnesium 2.1 mg/dL (1.6-2.3)
[2023-12-02 09:07] LABS: Alanine Aminotransferase 16 U/L (6-50); Albumin Level 3.6 g/dL (3.5-5.1); Alkaline Phosphatase 63 U/L (38-126); Anion Gap 8 mmol/L (4-12); Aspartate Amino Transferase 21 U/L (17-59); Bilirubin,Total 1.4 mg/dL (0.2-1.3); Blood Urea Nitrogen 15 mg/dL (9-20); Calcium 8.6 mg/dL (8.4-10.2); Carbon Dioxide 24 mmol/L (22-30); Chloride 100 mmol/L (98-107); Estimated CRCL calculation 71 ml/min; Estimated Glomerular Filt Rate > 60; Glucose 244 mg/dL (65-110); Potassium 4.4 mmol/L (3.4-5.0); Sodium 132 mmol/L (137-145); Troponin I < 0.012 ng/mL (0.000-0.034)
--- NOTE | 2023-12-02 09:25 | PM.IMPN ---
Progress Note: A&P Assessment and Plan (1) Closed intertrochanteric fracture: Qualifiers: Encounter type: subsequent encounter Fracture alignment: displaced Fracture healing: with routine healing Laterality: right Qualified Code(s): S72.141D - Displaced intertrochanteric fracture of right femur, subsequent encounter for closed fracture with routine healing Code(s): S72.143A - Displaced intertrochanteric fracture of unspecified femur, initial encounter for closed fracture Status: Deleted Assessment and Plan: admit to regular medical floor bed rest pain management ortho consult 11/26- Right hip reduction with trochanteric Intramedullary nail hip screw fixation. 11/27- PT/OT ordered, pain control, bowel regimen- miralax daily 11/28- pain is tolerable 11/29- pt/ot, IS, follow ortho recommendation 11/30- continue 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: Code(s): I69.398 - Other sequelae of cerebral infarction; R29.818 - Other symptoms and signs involving the nervous system Status: Acute Assessment and Plan: right hemiparesis (5) Neuropathy: Code(s): G62.9 - Polyneuropathy, unspecified Status: Acute Assessment and Plan: continue gabapentin (6) Essential hypertension: Code(s): I10 - Essential (primary) hypertension Status: Acute Assessment and Plan: resume home med (7) T2DM (type 2 diabetes mellitus): Code(s): E11.9 - Type 2 diabetes mellitus without complications Status: Acute Assessment and Plan: will hold glipizide and Glucophage insulin sliding scale as needed - hypoglycemia protocol - BS had been elevated- will add lantus 10 units and SS to ensure better BS control - will add lantus hs for better bs coverage as bs had been elevated Plan SVT prophylaxis per ortho: DVT prophylaxis with SCDs and Arixtra Will transition to aspirin at discharge. 12/01 Rapid response was called on pt this am- was working with PT- stood up, felt like was going to pass out - sat down in the chair- BP initially was 80/50- but improved with IV fluids. Labs obtained, EKG was done- 1degree HB and T wav abnormalities (abnormality was present few months ago). Trop was obtain. Ortho- DR Azul was notified and reached out to cardiology- if Trop is high or chest pain/symptomatic- will add consult then, Doppler was ordered to r/u DVT. Avoid dilaudid and add muscle relaxant. 500 ml 0.9 NS bolus. Time Spent With Patient Time with patient: Greater than 35 minutes Subjective Date/time seen: 12/02/23 09:25 Interval history: 12/01 Rapid response was called this am- pt was feeling drowsy. Was workign with therapy- stood up and felt liek he was going to pass out Labs obtained, EKG was done- 1degree HB and T wav abnormalities (abnormality was present few months ago). Trop was obtain. Ortho- DR Azul was notified and reached out to cardiology- if Trop is high or chest pain/symptomatic- will add consult then, Doppler was ordered to r/u DVT. Avoid dilaudid and add muscle relaxant. 500 ml 0.9 NS bolus. Family was updated. 1400- pt is alert, oriented, in no distress. Flexeril, voltaren gel, ice/heat available for pain. Will re visit discharge tomorrow Review of Systems Review of Systems: in bed, rates pain 7- just worked with pt/ot Exam Narrative: patient is laying in a stretcher Const: General: comfortable, no acute
--- NOTE | 2023-12-02 10:10 | PC.NURSE ---
Pt working with OT and seated in a chair when this RN was told he suddenly became less responsive. This RN notified and responded to room. Rapid called. BP 80/50 HR varying from 20s-60s. Pt pale and diaphoretic. Unable to stay awake, but responding intermittently to voice, sometimes needing touch. Pt returned to bed, placed in Trendelenburg, 500 NS bolus given. EKG and labs performed. Spoke with provider. Added muscle relaxant, topical analgesic. BPs returned to WNL 120/58.
[2023-12-02] MEDS: SODIUM CHLORIDE 0.9% IV 1,000 ML 150 ML IV CONT (11:06)
[2023-12-02] MEDS: FERROUS SULFATE 325 MG TABLET DR PO (11:07)
[2023-12-02] MEDS: amLODIPine BESYLATE 10 MG TABLET PO (11:07)
[2023-12-02] MEDS: CELECOXIB 200 MG CAPSULE PO (11:07)
[2023-12-02] MEDS: PANTOPRAZOLE 40 MG TABLET PO (11:07)
[2023-12-02] MEDS: SENNA/DOCUSATE SODIUM TABLET 2 TAB PO ×2 (11:07→17:59)
[2023-12-02] MEDS: LIDOCAINE 5% PATCH 1 PATCH TRANSDERM (11:08)
[2023-12-02] MEDS: FONDAPARINUX SODIUM 2.5 MG/0.5 ML SYRINGE SUB-Q (11:08)
[2023-12-02] MEDS: CYCLOBENZAPRINE HCL 5 MG TABLET PO ×3 (11:08→18:22)
[2023-12-02 12:00] LABS: Glucose Point of Care 266 mg/dl (65-105)
[2023-12-02 12:02] LABS: Troponin I < 0.012 ng/mL (0.000-0.034)
[2023-12-02] MEDS: INSULIN ASPART (*BKC) 100 UNITS/ML SUB-Q ×2 (12:48→12:49)
[2023-12-02] MEDS: SODIUM CHLORIDE 0.9% IV 500 ML IV CONT (12:50)
--- NOTE | 2023-12-02 15:46 | PM.PNORT ---
Progress Note: A&P Assessment and Plan (1) Closed intertrochanteric fracture of right hip: Qualifiers: Encounter type: subsequent encounter Fracture alignment: displaced Fracture healing: with routine healing Qualified Code(s): S72.141D - Displaced intertrochanteric fracture of right femur, subsequent encounter for closed fracture with routine healing Code(s): S72.141A - Displaced intertrochanteric fracture of right femur, initial encounter for closed fracture Status: Acute Assessment and Plan: POD #5: Right hip trochanteric nail. PT/OT with weight-bearing as tolerated. DVT prophylaxis with SCDs and Arixtra. Will transition to aspirin at discharge. Pain control. Dispo when medically stable. Subjective Subjective Date/Time Seen: 12/02/23 15:46 Post Op day: 5 Principal diagnosis: Right hip intertrochanteric fracture Interval history: POD #5: Right hip trochanteric nail. Resting comfortably. No acute distress. Complains of mild right hip pain. Difficulty with spasticity with the RLE. Awaiting insurance authorization for [facility]OT[facility]. Review of Systems Review of Systems: All systems reviewed & are unremarkable except as noted in HPI and below Exam Const: General: healthy appearing; No in distress or confusion Orientation/consciousness: patient oriented x3 and No confusion HENMT: Head: normal to inspection, normocephalic and atraumatic Eyes: Conjunctivae: conjunctivae normal Sclera: sclerae normal Resp: Effort & Inspection: normal respiratory effort and no audible wheezes Neuro: General: patient oriented x3 and No confusion Extrem: Other: Right hip incisions clean dry and intact. Right foot good capillary refill. Negative Homans. Weak ankle dorsiflexion as noted preoperatively. Psych: Affect: normal affect Objective Data Vital Signs Vital Signs: Vital Signs - 24 hr 12/01/23 21:46 12/02/23 05:56 12/02/23 12:53 Temperature 36.6 C 36.4 C Pulse Rate 69 78 78 Respiratory Rate 18 18 Blood Pressure 137/61 115/57 L Pulse Oximetry 100 91 12/02/23 14:00 Temperature 35.7 C L Pulse Rate 72 Respiratory Rate 20 Blood Pressure 120/60 Pulse Oximetry 99 Intake/Output Intake/Output: Intake & Output 11/29/23 11/30/23 12/01/23 12/02/23 23:59 23:59 23:59 23:59 Intake Total 4310 818 1137 340 Output Total 650 1825 1250 750 Balance 380 -1105 190 -410 Meds/Results Medications: Active Medications Generic Name Dose Route Start Last Admin Trade Name Freq PRN Reason Stop Dose Admin Acetaminophen 650 mg 11/27/23 18:00 12/02/23 11:07 Acetaminophen 325 Mg Tablet PO 650 mg Q6HR SAILAJA Administration Hydrocodone Bitart/Acetaminophen 1 tab 11/27/23 14:57 12/02/23 12:51 Hydrocodone/Acetaminophen (*Crx) 5-325 Mg Tablet PO 1 tab Q4H PRN Administration Pain Rated 4-6 Amlodipine Besylate 10 mg 11/27/23 12:00 12/02/23 11:07 Amlodipine Besylate 10 Mg Tablet PO 10 mg DAILY@1200 [facility] Administration Aspirin 81 mg 11/27/23 21:00 12/01/23 20:57 Aspirin 81 Mg Enteric Tablet PO 81 mg HS [facility] Administration Atenolol 50 mg 11/27/23 12:00 12/02/23 12:53 Atenolol 50 Mg Tablet PO Not Given DAILY@1200 [facility] Celecoxib 200 mg 11/28/23 08:00 12/02/23 11:07 Celecoxib 200 Mg Capsule PO 200 mg DAILY@0800 [facility] Administration Cyclobenzaprine HCl 5 mg 12/02/23 10:56 12/02/23 11:08 Cyclobenzaprine Hcl 5 Mg Tablet PO 5 mg Q8H PRN Administration Muscle Spasm Dextrose 12.5 gm 11/27/23 15:46 Dextrose 50% 25 Gm/50 Ml Syringe IV PUSH PRN PRN Hypoglycemia Protocol Diclofenac Sodium 1 applic 12/02/23 13:00 12/02/23 15:27 Diclofenac Sodium 1% 100 Gm Gel (*Bkc) TOPICAL Not Given QID [facility] Ferrous Sulfate 325 mg 11/27/23 09:00 12/02/23 11:07 Ferrous Sulfate [address] PO 12/27/23 08:59 325 mg DAILY SAILAJA Administration Fluoxetine HCl 10 mg 11/27/23 21:
[2023-12-02 16:53] LABS: Glucose Point of Care 187 mg/dl (65-105)
[2023-12-02] MEDS: DICLOFENAC SODIUM 1% 100 GM GEL (*BKC) 1 APPLIC TOPICAL ×2 (17:59→20:30)
[2023-12-02] MEDS: PRAVASTATIN SODIUM 20 MG TABLET PO (18:01)
[2023-12-02 20:18] LABS: Glucose Point of Care 269 mg/dl (65-105)
[2023-12-02] MEDS: FLUoxetine HCL 10 MG CAPSULE PO (20:29)
[2023-12-02] MEDS: ASPIRIN 81 MG ENTERIC TABLET PO (20:29)
[2023-12-02] MEDS: NORTRIPTYLINE HCL 25 MG CAPSULE PO (20:29)
[2023-12-02] MEDS: GABAPENTIN 300 MG CAPSULE PO (20:29)
[2023-12-02] MEDS: INSULIN GLARGINE (*BKC) 100 UNITS/ML 20 UNITS SUB-Q (20:31)
[2023-12-03] VITALS (10 sets, daily range): BP systolic 127–150; BP diastolic 55–75; PULSE 72–98; RESP 18–20; TEMP 35.9–36.4; O2SAT 97–98
[2023-12-03] MEDS: CYCLOBENZAPRINE HCL 10 MG TABLET PO ×3 (03:26→20:30)
[2023-12-03] MEDS: HYDROcodone/acetaminophen (*CRX) 5-325 MG TABLET 1 TAB PO (04:47)
[2023-12-03] MEDS: ACETAMINOPHEN 325 MG TABLET 650 MG PO ×3 (05:26→17:31)
[2023-12-03 06:37] LABS: Hematocrit 29.3 % (42.0-52.0); Hemoglobin 9.6 g/dL (14.0-18.0); Mean Corpuscular HGB Conc 32.8 g/dl (32-36); Mean Corpuscular Hemoglobin 29.2 pg (26-34); Mean Corpuscular Volume 89.1 fl (80-100); Platelet Count Result 304 k/mm3 (150-375); Red Blood Count 3.29 M/mm3 (4.6-6.20); Red Cell Distribution Width 13.1 % (11.5-14.5)
[2023-12-03 06:47] LABS: Alanine Aminotransferase 15 U/L (6-50); Albumin Level 3.3 g/dL (3.5-5.1); Alkaline Phosphatase 59 U/L (38-126); Anion Gap 7 mmol/L (4-12); Aspartate Amino Transferase 26 U/L (17-59); Bilirubin,Total 1.4 mg/dL (0.2-1.3); Blood Urea Nitrogen 12 mg/dL (9-20); Calcium 8.4 mg/dL (8.4-10.2); Carbon Dioxide 26 mmol/L (22-30); Chloride 102 mmol/L (98-107); Estimated CRCL calculation 71 ml/min; Estimated Glomerular Filt Rate > 60; Glucose 206 mg/dL (65-110); Potassium 3.9 mmol/L (3.4-5.0); Sodium 135 mmol/L (137-145)
[2023-12-03 09:07] LABS: Glucose Point of Care 228 mg/dl (65-105)
[2023-12-03] MEDS: IBUPROFEN IV 800 MG/200 ML 800 MG/200 ML BAG 400 MG IVPB (09:08)
[2023-12-03] MEDS: FONDAPARINUX SODIUM 2.5 MG/0.5 ML SYRINGE SUB-Q (09:09)
[2023-12-03] MEDS: FERROUS SULFATE 325 MG TABLET DR PO (09:10)
[2023-12-03] MEDS: SENNA/DOCUSATE SODIUM TABLET 2 TAB PO ×2 (09:10→16:38)
[2023-12-03] MEDS: DICLOFENAC SODIUM 1% 100 GM GEL (*BKC) 1 APPLIC TOPICAL ×4 (09:10→20:30)
[2023-12-03] MEDS: CELECOXIB 200 MG CAPSULE PO (09:10)
[2023-12-03] MEDS: LIDOCAINE 5% PATCH 1 PATCH TRANSDERM (09:11)
[2023-12-03] MEDS: polyethylene glycoL 3350 17 GM POWD.PACK PO (09:11)
[2023-12-03] MEDS: INSULIN ASPART (*BKC) 100 UNITS/ML SUB-Q ×5 (09:19→16:48)
[2023-12-03] MEDS: oxyCODONE HCL (*CRX) 2.5 MG TAB IR PO ×3 (09:25→21:14)
[2023-12-03 12:05] LABS: Glucose Point of Care 248 mg/dl (65-105)
[2023-12-03] MEDS: amLODIPine BESYLATE 10 MG TABLET PO (12:15)
[2023-12-03] MEDS: PANTOPRAZOLE 40 MG TABLET PO (12:15)
[2023-12-03] MEDS: atenoloL 50 MG TABLET PO (12:16)
--- NOTE | 2023-12-03 13:05 | PM.PNORT ---
Progress Note: A&P Assessment and Plan (1) Closed intertrochanteric fracture of right hip: Qualifiers: Encounter type: subsequent encounter Fracture alignment: displaced Fracture healing: with routine healing Qualified Code(s): S72.141D - Displaced intertrochanteric fracture of right femur, subsequent encounter for closed fracture with routine healing Code(s): S72.141A - Displaced intertrochanteric fracture of right femur, initial encounter for closed fracture Status: Acute Assessment and Plan: POD #6: Right hip trochanteric nail. PT/OT with weight-bearing as tolerated. DVT prophylaxis with SCDs and Arixtra. Will transition to aspirin at discharge. Pain control. Dispo when medically stable. Subjective Subjective Date/Time Seen: 12/03/23 13:05 Post Op day: 6 Principal diagnosis: Right hip IT fracture Interval history: POD #6: Right hip trochanteric nail. Resting comfortably. up in chair. No acute distress. Complains of mild right hip pain, Right buttock bruising. Awaiting insurance authorization for [facility]. Exam Resp: Effort & Inspection: normal respiratory effort and no audible wheezes Neuro: General: patient oriented x3 and No confusion Extrem: Other: Right hip incisions clean dry and intact. Right foot good capillary refill. Negative Homans. Weak ankle dorsiflexion as noted preoperatively. Psych: Affect: normal affect Objective Data Vital Signs Vital Signs: Vital Signs - 24 hr 12/02/23 14:00 12/02/23 16:00 12/02/23 20:27 Temperature 96.3 F L 97.7 F Pulse Rate 72 79 87 Respiratory Rate 20 18 Blood Pressure 120/60 143/64 H Pulse Oximetry 99 96 Oxygen Delivery 12/02/23 20:00 12/02/23 20:30 12/02/23 23:44 Temperature 97.5 F L Pulse Rate 87 94 Respiratory Rate 20 Blood Pressure 143/77 H Pulse Oximetry 95 Oxygen Delivery Room Air 12/03/23 00:00 12/03/23 04:00 12/03/23 05:15 Temperature 97.4 F L Pulse Rate 98 92 93 Respiratory Rate 18 Blood Pressure 150/75 H Pulse Oximetry 97 Oxygen Delivery 12/03/23 08:00 12/03/23 08:00 12/03/23 12:16 Temperature Pulse Rate 89 78 Respiratory Rate Blood Pressure Pulse Oximetry Oxygen Delivery Room Air Intake/Output Intake/Output: Intake & Output 11/30/23 12/01/23 12/02/23 12/03/23 23:59 23:59 23:59 23:59 Intake Total 720 1708 048 1267 Output Total 1825 1250 2150 1400 Balance -1105 190 -1200 -290 Meds/Results Medications: Active Medications Generic Name Dose Route Start Last Admin Trade Name Freq PRN Reason Stop Dose Admin Acetaminophen 650 mg 11/27/23 18:00 12/03/23 12:15 Acetaminophen 325 Mg Tablet PO 650 mg Q6HR SAILAJA Administration Hydrocodone Bitart/Acetaminophen 1 tab 11/27/23 14:57 12/03/23 04:47 Hydrocodone/Acetaminophen (*Crx) 5-325 Mg Tablet PO 1 tab Q4H PRN Administration Pain Rated 4-6 Amlodipine Besylate 10 mg 11/27/23 12:00 12/03/23 12:15 Amlodipine Besylate 10 Mg Tablet PO 10 mg DAILY@1200 SAILAJA Administration Aspirin 81 mg 11/27/23 21:00 12/02/23 20:29 Aspirin 81 Mg Enteric Tablet PO 81 mg HS SAILAJA Administration Atenolol 50 mg 11/27/23 12:00 12/03/23 12:16 Atenolol 50 Mg Tablet PO 50 mg DAILY@1200 SAILAJA Administration Celecoxib 200 mg 11/28/23 08:00 12/03/23 09:10 Celecoxib 200 Mg Capsule PO 200 mg DAILY@0800 SAILAJA Administration Cyclobenzaprine HCl 10 mg 12/02/23 22:00 12/03/23 12:15 Cyclobenzaprine Hcl 10 Mg Tablet PO 10 mg Q8H PRN Administration Muscle Spasm Dextrose 12.5 gm 11/27/23 15:46 Dextrose 50% 25 Gm/50 Ml Syringe IV PUSH PRN PRN Hypoglycemia Protocol Diclofenac Sodium 1 applic 12/02/23 13:00 12/03/23 12:16 Diclofenac Sodium 1% 100 Gm Gel (*Bkc) TOPICAL 1 applic QID SAILAJA Administration Ferrous Sulfate 325 mg 11/27/23 09:00 12/03/23 09:10 Ferrous Sulfate [address] PO 11/0
--- NOTE | 2023-12-03 13:36 | P.PNIM_ITS ---
Progress Note: A&P Assessment and Plan (1) Closed intertrochanteric fracture: Qualifiers: Encounter type: subsequent encounter Fracture alignment: displaced Fracture healing: with routine healing Laterality: right Qualified Code(s): S72.141D - Displaced intertrochanteric fracture of right femur, subsequent encounter for closed fracture with routine healing Code(s): S72.143A - Displaced intertrochanteric fracture of unspecified femur, initial encounter for closed fracture Status: Deleted Assessment and Plan: * Postop day 6 * Pain management * Antipyretics for fever and mild pain * Arixtra DVTs transition to oral aspirin at discharge per Ortho * PT OT * Added p.o. oxycodone deescalate IV pain medication (2) Fall in shower: Code(s): W18.2XXA - Fall in (into) shower or empty bathtub, initial encounter Status: Acute Assessment and Plan: * fall precautions * PT/OT (3) Neurologic deficit due to old ischemic stroke: Code(s): I69.398 - Other sequelae of cerebral infarction; R29.818 - Other symptoms and si gns involving the nervous system Status: Acute Assessment and Plan: * right hemiparesis * Wheelchair-bound (4) T2DM (type 2 diabetes mellitus): Code(s): E11.9 - Type 2 diabetes mellitus without complications Status: Acute Assessment and Plan: * Accu-Cheks a.c. HS * sliding scale insulin * hold oral diabetic medications * BS had been elevated add lantus 10 units and SS to ensure better BS control * encourage lifestyle modifications and weight loss * Optimize Everton inhibitors and statins. * Watch for hypoglycemia/hypoglycemic protocol ordered Plan Code status: Full code per patient DVT prophylaxis: Bradleyxtra DVTs transition to oral aspirin at discharge per Ortho Stress ulcer prophylaxis: Protonix 40 daily PT/OT notes: PT/OT Pending Rehab Disposition: Patient continues admission postop day 6 from right fractured hip repair patient is currently waiting on placement to [facility] did have episode of near-syncope yesterday a rapid response denied any further events de-escalated IV pain medication. Time Spent With Patient Time with patient: 15 - 25 minutes Subjective Date/time seen: 12/03/23 13:36 Interval history: Patient is a 78-year-old male who was admitted for repair of closed intertrochanteric fracture of the right hip after fall at home 12/03/2023: Assumed Care Patient reports feeling better today no further episodes of near-syncope. Patient reported pain well controlled denied any chest pain, shortness a breath, nausea, vomiting or constipation. Review of Systems Review of Systems: All systems reviewed & are unremarkable except as noted in HPI and below Exam Narrative: Physical Exam: * GENERAL: Alert and oriented x 3. No acute distress. * EYES: PERRLA. * HEENT: Moist mucous membranes. * LUNGS: Clear to auscultation bilaterally. No accessory muscle use. * CARDIOVASCULAR: Regular rate and rhythm. No murmur. No JVD. S1-S2 * ABDOMEN: Soft, non tenderness and non-distended. No palpable masses. * EXTREMITIES: No edema. Non-tender, * SKIN: No rashes or lesions. Skin warm, dry. BRAD Rodríguez
--- NOTE | 2023-12-03 13:36 | PM.IMPN ---
Progress Note: A&P Assessment and Plan (1) Closed intertrochanteric fracture: Qualifiers: Encounter type: subsequent encounter Fracture alignment: displaced Fracture healing: with routine healing Laterality: right Qualified Code(s): S72.141D - Displaced intertrochanteric fracture of right femur, subsequent encounter for closed fracture with routine healing Code(s): S72.143A - Displaced intertrochanteric fracture of unspecified femur, initial encounter for closed fracture Status: Deleted Assessment and Plan: Postop day 6 Pain management Antipyretics for fever and mild pain Arixtra DVTs transition to oral aspirin at discharge per Ortho PT OT Added p.o. oxycodone deescalate IV pain medication (2) Fall in shower: Code(s): W18.2XXA - Fall in (into) shower or empty bathtub, initial encounter Status: Acute Assessment and Plan: fall precautions PT/OT (3) 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 HS sliding scale insulin hold oral diabetic medications BS had been elevated add lantus 10 units and SS to ensure better BS control encourage lifestyle modifications and weight loss Optimize Everton inhibitors and statins. Watch for hypoglycemia/hypoglycemic protocol ordered Plan Code status: Full code per patient DVT prophylaxis: Arixtra DVTs transition to oral aspirin at discharge per Ortho Stress ulcer prophylaxis: Protonix 40 daily PT/OT notes: PT/OT Pending Rehab Disposition: Patient continues admission postop day 6 from right fractured hip repair patient is currently waiting on placement to [facility] did have episode of near-syncope yesterday a rapid response denied any further events de-escalated IV pain medication. Time Spent With Patient Time with patient: 15 - 25 minutes Subjective Date/time seen: 12/03/23 13:36 Interval history: Patient is a 78-year-old male who was admitted for repair of closed intertrochanteric fracture of the right hip after fall at home 12/03/2023: Assumed Care Patient reports feeling better today no further episodes of near-syncope. Patient reported pain well controlled denied any chest pain, shortness a breath, nausea, vomiting or constipation. Review of Systems Review of Systems: All systems reviewed & are unremarkable except as noted in HPI and below Exam Narrative: Physical Exam: GENERAL: Alert and oriented x 3. No acute distress. EYES: PERRLA. HEENT: Moist mucous membranes. LUNGS: Clear to auscultation bilaterally. No accessory muscle use. CARDIOVASCULAR: Regular rate and rhythm. No murmur. No JVD. S1-S2 ABDOMEN: Soft, non tenderness and non-distended. No palpable masses. EXTREMITIES: No edema. Non-tender, SKIN: No rashes or lesions. Skin warm, dry. RUE Incision site clean and dry NEUROLOGIC: No focal neurological deficits. CN II-XII grossly intact PSYCHIATRIC: Appropriate mood and affect. Good judgement and insight. Objective Data Vital Signs Vital Signs: Vital Signs - 24 hr 12/02/23 14:00 12/02/23 16:00 12/02/23 20:27 Temperature 96.3 F L 97.7 F Pulse Rate 72 79 87 Respiratory Rate 20 18 Blood Pressure 120/60 143/64 H Pulse Oximetry 99 96 Oxygen Delivery 12/02/23 20:00 12/02/23 20:30 12/02/23 23:44 Temperature 97.5 F L Pulse Rate 87 94 Respiratory Rate 20 Blood Pressure 143/77 H Pulse Oximetry 95 Oxygen Delivery Room Air 12/03/23 00:00 12/03/23 04:00 12/03/23 05:15 Temperature 97.4 F L Pulse Rate 98 92 93 Respiratory Rate
[2023-12-03 16:30] LABS: Glucose Point of Care 178 mg/dl (65-105)
[2023-12-03] MEDS: PRAVASTATIN SODIUM 20 MG TABLET PO (17:31)
[2023-12-03] MEDS: VALSARTAN 80 MG TABLET PO (17:31)
[2023-12-03 20:23] LABS: Glucose Point of Care 289 mg/dl (65-105)
[2023-12-03] MEDS: INSULIN GLARGINE (*BKC) 100 UNITS/ML 20 UNITS SUB-Q (20:28)
[2023-12-03] MEDS: NORTRIPTYLINE HCL 25 MG CAPSULE PO (20:29)
[2023-12-03] MEDS: GABAPENTIN 300 MG CAPSULE PO (20:29)
[2023-12-03] MEDS: ASPIRIN 81 MG ENTERIC TABLET PO (20:30)
[2023-12-03] MEDS: FLUoxetine HCL 10 MG CAPSULE PO (20:30)
[2023-12-04] VITALS (10 sets, daily range): BP systolic 122–152; BP diastolic 44–76; PULSE 69–85; RESP 18; TEMP 36.1–36.7; O2SAT 98–100
[2023-12-04] MEDS: ACETAMINOPHEN 325 MG TABLET 650 MG PO ×4 (00:18→17:01)
[2023-12-04] MEDS: oxyCODONE HCL (*CRX) 2.5 MG TAB IR PO ×3 (05:34→20:39)
[2023-12-04] MEDS: CYCLOBENZAPRINE HCL 10 MG TABLET PO (05:34)
[2023-12-04 07:41] LABS: Glucose Point of Care 196 mg/dl (65-105)
[2023-12-04 08:06] LABS: Hematocrit 30.9 % (42.0-52.0); Hemoglobin 10.3 g/dL (14.0-18.0); Mean Corpuscular HGB Conc 33.3 g/dl (32-36); Mean Corpuscular Hemoglobin 29.8 pg (26-34); Mean Corpuscular Volume 89.3 fl (80-100); Mean Platelet Volume 9.2 fl (7.4-10.4); Platelet Count Result 331 k/mm3 (150-375); Red Blood Count 3.46 M/mm3 (4.6-6.20); Red Cell Distribution Width 13.5 % (11.5-14.5); White Blood Count 8.1 K/mm3 (4.5-10.0)
[2023-12-04 08:16] LABS: Alanine Aminotransferase 16 U/L (6-50); Albumin Level 3.5 g/dL (3.5-5.1); Alkaline Phosphatase 62 U/L (38-126); Anion Gap 8 mmol/L (4-12); Aspartate Amino Transferase 24 U/L (17-59); Bilirubin,Total 1.3 mg/dL (0.2-1.3); Blood Urea Nitrogen 12 mg/dL (9-20); Calcium 8.5 mg/dL (8.4-10.2); Carbon Dioxide 24 mmol/L (22-30); Chloride 103 mmol/L (98-107); Estimated CRCL calculation 71 ml/min; Estimated Glomerular Filt Rate > 60; Glucose 201 mg/dL (65-110); Potassium 4.1 mmol/L (3.4-5.0); Sodium 135 mmol/L (137-145)
[2023-12-04] MEDS: SENNA/DOCUSATE SODIUM TABLET 2 TAB PO ×2 (08:42→17:02)
[2023-12-04] MEDS: FERROUS SULFATE 325 MG TABLET DR PO (08:42)
[2023-12-04] MEDS: FONDAPARINUX SODIUM 2.5 MG/0.5 ML SYRINGE SUB-Q (08:42)
[2023-12-04] MEDS: polyethylene glycoL 3350 17 GM POWD.PACK PO (08:43)
[2023-12-04] MEDS: LIDOCAINE 5% PATCH 1 PATCH TRANSDERM (08:43)
[2023-12-04] MEDS: INSULIN ASPART (*BKC) 100 UNITS/ML SUB-Q ×5 (08:43→17:02)
[2023-12-04] MEDS: CELECOXIB 200 MG CAPSULE PO (08:43)
--- NOTE | 2023-12-04 09:44 | P.PNIM_ITS ---
Progress Note: A&P Assessment and Plan (1) Closed intertrochanteric fracture: Qualifiers: Encounter type: subsequent encounter Fracture alignment: displaced Fracture healing: with routine healing Laterality: right Qualified Code(s): S72.141D - Displaced intertrochanteric fracture of right femur, subsequent encounter for closed fracture with routine healing Code(s): S72.143A - Displaced intertrochanteric fracture of unspecified femur, initial encounter for closed fracture Status: Deleted Assessment and Plan: * Postop day 7 * Pain management * Antipyretics for fever and mild pain * Arixtra DVTs transition to oral aspirin at discharge per Ortho * PT OT * Sweetser 5mg-325 mg for pain 4-6 q 4 hours, Added p.o. oxycodone 2.5 mg for pain rated 7-10, scheduled Tylenol * Flexeril 10 mg PO every 8 hours (2) Fall in shower: Code(s): W18.2XXA - Fall in (into) shower or empty bathtub, initial encounter Status: Acute Assessment and Plan: * fall precautions * PT/OT (3) 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 HS * sliding scale insulin * hold oral diabetic medications * BS had been elevated add Lantus 20 units and SS to ensure better BS control * encourage lifestyle modifications and weight loss * Optimize Everton inhibitors and statins. * Watch for hypoglycemia/hypoglycemic protocol ordered * Blood glucose has been ranging 178-289 for the last 24 hours. Plan Code status: Full code per patient DVT prophylaxis: Arixtra DVTs transition to oral aspirin at discharge per Ortho Stress ulcer prophylaxis: Protonix 40 daily PT/OT notes: PT/OT Pending Rehab Disposition: Medically ready for discharge. Awaiting insurance authorization for [facility]. Patient's son states the patient will private pay if insurance is denied. Subjective Date/time seen: 12/04/23 09:44 Interval history: No acute events overnight. Patient is resting in bed and is dozing in and out of sleep. His family member is at the bedside. The patient has not been resting well at night and has been drowsy during the day. He has been able to work with therapy and his pain is controlled. Review of Systems Review of Systems: All systems reviewed & are unremarkable except as noted in HPI and below Exam Narrative: General: appears comfortable, in no acute distress Respiratory: breathing is unlabored with even chest rise/fall, lungs are clear without wheezing, rhonchi, and crackles Cardiovascular: Rate and rhythm regular, normal s1s2, no murmur Abdomen: Soft, round, non-tender, active bowel sounds Extremities: No cyanosis, edema, clubbing. Pulses 2/2 Neuro: A&O x 4, drowsy Skin: Warm, dry, intact. Surgical incision to right hip with surgical dressing which is clean, dry, and intact. Scattered ecchymosis to right hip and right flank.
--- NOTE | 2023-12-04 09:44 | PM.IMPN ---
Progress Note: A&P Assessment and Plan (1) Closed intertrochanteric fracture: Qualifiers: Encounter type: subsequent encounter Fracture alignment: displaced Fracture healing: with routine healing Laterality: right Qualified Code(s): S72.141D - Displaced intertrochanteric fracture of right femur, subsequent encounter for closed fracture with routine healing Code(s): S72.143A - Displaced intertrochanteric fracture of unspecified femur, initial encounter for closed fracture Status: Deleted Assessment and Plan: Postop day 7 Pain management Antipyretics for fever and mild pain Arixtra DVTs transition to oral aspirin at discharge per Ortho PT OT [place] 5mg-325 mg for pain 4-6 q 4 hours, Added p.o. 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 HS sliding scale insulin hold oral diabetic medications BS had been elevated add Lantus 20 units and SS to ensure better BS control encourage lifestyle modifications and weight loss Optimize Everton inhibitors and statins. Watch for hypoglycemia/hypoglycemic protocol ordered Blood glucose has been ranging 178-289 for the last 24 hours. Plan Code status: Full code per patient DVT prophylaxis: Arixtra DVTs transition to oral aspirin at discharge per Ortho Stress ulcer prophylaxis: Protonix 40 daily PT/OT notes: PT/OT Pending Rehab Disposition: Medically ready for discharge. Awaiting insurance authorization for [facility]. Patient's son states the patient will private pay if insurance is denied. Subjective Date/time seen: 12/04/23 09:44 Interval history: No acute events overnight. Patient is resting in bed and is dozing in and out of sleep. His family member is at the bedside. The patient has not been resting well at night and has been drowsy during the day. He has been able to work with therapy and his pain is controlled. Review of Systems Review of Systems: All systems reviewed & are unremarkable except as noted in HPI and below Exam Narrative: General: appears comfortable, in no acute distress Respiratory: breathing is unlabored with even chest rise/fall, lungs are clear without wheezing, rhonchi, and crackles Cardiovascular: Rate and rhythm regular, normal s1s2, no murmur Abdomen: Soft, round, non-tender, active bowel sounds Extremities: No cyanosis, edema, clubbing. Pulses 2/2 Neuro: A&O x 4, drowsy Skin: Warm, dry, intact. Surgical incision to right hip with surgical dressing which is clean, dry, and intact. Scattered ecchymosis to right hip and right flank. Objective Data Vital Signs Vital Signs: Vital Signs - 24 hr 12/03/23 12:16 12/03/23 12:00 12/03/23 14:00 Temperature 96.6 F L Pulse Rate 78 90 80 Respiratory Rate 20 Blood Pressure 133/61 Pulse Oximetry 97 Oxygen Delivery 12/03/23 16:00 12/03/23 20:27 12/03/23 20:30 Temperature 97.6 F Pulse Rate 80 72 Respiratory Rate 20 Blood Pressure 127/55 L Pulse Oximetry 98 Oxygen Delivery Room Air 12/04/23 00:18 12/03/23 20:00 12/04/23 04:00 Temperature 97.0 F L Pulse Rate 78 73 83 Respiratory Rate 18 Blood Pressure 122/63 Pulse Oximetry 98 Oxygen Delivery 12/04/23 06:00 12/04/23 08:00 Temperature 98.1 F Pulse Rate 80 85 Respirato
[2023-12-04] MEDS: DICLOFENAC SODIUM 1% 100 GM GEL (*BKC) 1 APPLIC TOPICAL ×3 (10:32→20:40)
--- NOTE | 2023-12-04 10:43 | PCNWS ---
Weekly nutritional screen. Patient is tolerating current Diabetic consistent carb diet with adequate intake, 100% all meals. No weight loss reported. No nutritional needs at this time. Discharge to [facility] soon
[2023-12-04 11:39] LABS: Glucose Point of Care 212 mg/dl (65-105)
[2023-12-04] MEDS: PANTOPRAZOLE 40 MG TABLET PO (12:08)
[2023-12-04] MEDS: atenoloL 50 MG TABLET PO (12:11)
[2023-12-04] MEDS: amLODIPine BESYLATE 10 MG TABLET PO (12:13)
[2023-12-04 16:42] LABS: Glucose Point of Care 272 mg/dl (65-105)
[2023-12-04] MEDS: PRAVASTATIN SODIUM 20 MG TABLET PO (17:01)
[2023-12-04] MEDS: VALSARTAN 80 MG TABLET PO (17:02)
[2023-12-04] MEDS: QUEtiapine FUMARATE 12.5 MG TABLET PO (20:39)
[2023-12-04] MEDS: NORTRIPTYLINE HCL 25 MG CAPSULE PO (20:39)
[2023-12-04] MEDS: FLUoxetine HCL 10 MG CAPSULE PO (20:39)
[2023-12-04] MEDS: GABAPENTIN 300 MG CAPSULE PO (20:39)
[2023-12-04] MEDS: ASPIRIN 81 MG ENTERIC TABLET PO (20:39)
[2023-12-04] MEDS: INSULIN GLARGINE (*BKC) 100 UNITS/ML 20 UNITS SUB-Q (20:41)
[2023-12-05] VITALS (10 sets, daily range): BP systolic 110–161; BP diastolic 57–83; PULSE 66–85; RESP 14–20; TEMP 35.7–36.3; O2SAT 98–100
[2023-12-05] MEDS: CYCLOBENZAPRINE HCL 10 MG TABLET PO ×2 (01:39→09:48)
[2023-12-05] MEDS: oxyCODONE HCL (*CRX) 2.5 MG TAB IR PO ×2 (01:40→06:01)
[2023-12-05] MEDS: ACETAMINOPHEN 325 MG TABLET 650 MG PO ×3 (06:01→17:16)
[2023-12-05 06:58] LABS: Alanine Aminotransferase 18 U/L (6-50); Albumin Level 3.6 g/dL (3.5-5.1); Alkaline Phosphatase 78 U/L (38-126); Anion Gap 9 mmol/L (4-12); Aspartate Amino Transferase 26 U/L (17-59); Bilirubin,Total 1.6 mg/dL (0.2-1.3); Blood Urea Nitrogen 11 mg/dL (9-20); Calcium 8.7 mg/dL (8.4-10.2); Carbon Dioxide 25 mmol/L (22-30); Chloride 102 mmol/L (98-107); Estimated CRCL calculation 63 ml/min; Estimated Glomerular Filt Rate > 60; Glucose 187 mg/dL (65-110); Sodium 136 mmol/L (137-145)
--- NOTE | 2023-12-05 07:49 | P.PNIM_ITS ---
Progress Note: A&P Assessment and Plan (1) Closed intertrochanteric fracture: Qualifiers: Encounter type: subsequent encounter Fracture alignment: displaced Fracture healing: with routine healing Laterality: right Qualified Code(s): S72.141D - Displaced intertrochanteric fracture of right femur, subsequent encounter for closed fracture with routine healing Code(s): S72.143A - Displaced intertrochanteric fracture of unspecified femur, initial encounter for closed fracture Status: Deleted Assessment and Plan: * Postop day 8 * Pain management * Antipyretics for fever and mild pain * Arixtra DVTs transition to oral aspirin at discharge per Ortho * PT OT * [place] 5mg-325 mg for pain 4-6 q 4 hours, Added p.o. oxycodone 2.5 mg for pain rated 7-10, scheduled Tylenol * Flexeril 10 mg PO every 8 hours (2) Fall in shower: Code(s): W18.2XXA - Fall in (into) shower or empty bathtub, initial encounter Status: Acute Assessment and Plan: * fall precautions * PT/OT (3) 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 HS * sliding scale insulin * hold oral diabetic medications * BS had been elevated add Lantus 20 units and SS to ensure better BS control * encourage lifestyle modifications and weight loss * Optimize Everton inhibitors and statins. * Watch for hypoglycemia/hypoglycemic protocol ordered * Blood glucose has been ranging 178-289 for the last 24 hours. Plan Code status: Full code per patient DVT prophylaxis: Arixtra DVTs transition to oral aspirin at discharge per Ortho Stress ulcer prophylaxis: Protonix 40 daily PT/OT notes: PT/OT Pending Rehab Disposition: Medically ready for discharge. Insurance denied acute rehab. Peer to peer completed but denial upheld. Insurance will authorize SNF. Family would like to try [place]. Subjective Date/time seen: 12/05/23 07:49 Interval history: Patient is seen sitting up in the chair. He is in good spirits and denies any complaints at this time. He is anxious to discharge. Review of Systems Review of Systems: All systems reviewed & are unremarkable except as noted in HPI and below Exam Narrative: General: appears comfortable, in no acute distress Respiratory: breathing is unlabored with even chest rise/fall, lungs are clear without wheezing, rhonchi, and crackles Cardiovascular: Rate and rhythm regular, normal s1s2, no murmur Abdomen: Soft, round, non-tender, active bowel sounds Extremities: No cyanosis, edema, clubbing. Pulses 2/2 Neuro: A&O x 4, Skin: Warm, dry, intact. Surgical incision to right hip with surgical dressing which is clean, dry, and intact. Scattered ecchymosis to right hip and right flank. Objective Data Vital Signs Vital Signs: Vital Signs - 24 hr
--- NOTE | 2023-12-05 07:49 | PM.IMPN ---
Progress Note: A&P Assessment and Plan (1) Closed intertrochanteric fracture: Qualifiers: Encounter type: subsequent encounter Fracture alignment: displaced Fracture healing: with routine healing Laterality: right Qualified Code(s): S72.141D - Displaced intertrochanteric fracture of right femur, subsequent encounter for closed fracture with routine healing Code(s): S72.143A - Displaced intertrochanteric fracture of unspecified femur, initial encounter for closed fracture Status: Deleted Assessment and Plan: Postop day 8 Pain management Antipyretics for fever and mild pain Arixtra DVTs transition to oral aspirin at discharge per Ortho PT OT [place] 5mg-325 mg for pain 4-6 q 4 hours, Added p.o. 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 HS sliding scale insulin hold oral diabetic medications BS had been elevated add Lantus 20 units and SS to ensure better BS control encourage lifestyle modifications and weight loss Optimize Everton inhibitors and statins. Watch for hypoglycemia/hypoglycemic protocol ordered Blood glucose has been ranging 178-289 for the last 24 hours. Plan Code status: Full code per patient DVT prophylaxis: Arixtra DVTs transition to oral aspirin at discharge per Ortho Stress ulcer prophylaxis: Protonix 40 daily PT/OT notes: PT/OT Pending Rehab Disposition: Medically ready for discharge. Insurance denied acute rehab. Peer to peer completed but denial upheld. Insurance will authorize SNF. Family would like to try [facility]. Subjective Date/time seen: 12/05/23 07:49 Interval history: Patient is seen sitting up in the chair. He is in good spirits and denies any complaints at this time. He is anxious to discharge. Review of Systems Review of Systems: All systems reviewed & are unremarkable except as noted in HPI and below Exam Narrative: General: appears comfortable, in no acute distress Respiratory: breathing is unlabored with even chest rise/fall, lungs are clear without wheezing, rhonchi, and crackles Cardiovascular: Rate and rhythm regular, normal s1s2, no murmur Abdomen: Soft, round, non-tender, active bowel sounds Extremities: No cyanosis, edema, clubbing. Pulses 2/2 Neuro: A&O x 4, Skin: Warm, dry, intact. Surgical incision to right hip with surgical dressing which is clean, dry, and intact. Scattered ecchymosis to right hip and right flank. Objective Data Vital Signs Vital Signs: Vital Signs - 24 hr 12/04/23 08:00 12/04/23 08:43 12/04/23 12:11 Temperature Pulse Rate 85 82 Respiratory Rate Blood Pressure Pulse Oximetry Oxygen Delivery Room Air 12/04/23 14:00 12/04/23 12:00 12/04/23 16:00 Temperature 97.8 F Pulse Rate 72 78 73 Respiratory Rate 18 Blood Pressure 129/44 L Pulse Oximetry 100 Oxygen Delivery 12/04/23 21:42 12/04/23 20:00 12/05/23 00:00 Temperature 97.2 F L Pulse Rate 71 69 76 Respiratory Rate 18 Blood Pressure 136/68 Pulse Oximetry 100 Oxygen Delivery 12/05/23 04:00 12/05/23 06:00 Temperature 97.0 F L Pulse Rate 85 84 Respiratory Rate 20 Blood Pressure 161/78 H Pulse Oximetry 99 Oxygen Delivery Intake/Output Intake/Output: Intake & Output 12/02/23
[2023-12-05 07:51] LABS: Glucose Point of Care 185 mg/dl (65-105)
[2023-12-05] MEDS: LIDOCAINE 5% PATCH 1 PATCH TRANSDERM (08:04)
[2023-12-05] MEDS: FONDAPARINUX SODIUM 2.5 MG/0.5 ML SYRINGE SUB-Q (08:04)
[2023-12-05] MEDS: CELECOXIB 200 MG CAPSULE PO (08:04)
[2023-12-05] MEDS: FERROUS SULFATE 325 MG TABLET DR PO (08:04)
[2023-12-05] MEDS: DICLOFENAC SODIUM 1% 100 GM GEL (*BKC) 1 APPLIC TOPICAL ×4 (08:07→20:43)
[2023-12-05] MEDS: IBUPROFEN IV 800 MG/200 ML 800 MG/200 ML BAG 200 MG IVPB (08:41)
[2023-12-05] MEDS: INSULIN ASPART (*BKC) 100 UNITS/ML SUB-Q ×4 (09:10→17:18)
--- NOTE | 2023-12-05 09:32 | PM.PNORT ---
Progress Note: A&P Assessment and Plan (1) Closed intertrochanteric fracture of right hip: Qualifiers: Encounter type: subsequent encounter Fracture alignment: displaced Fracture healing: with routine healing Qualified Code(s): S72.141D - Displaced intertrochanteric fracture of right femur, subsequent encounter for closed fracture with routine healing <TOD Morris - Last Filed: 12/05/23 09:47> Code(s): S72.141A - Displaced intertrochanteric fracture of right femur, initial encounter for closed fracture <TOD Morris - Last Filed: 12/05/23 09:47> Status: Acute <TOD Morris - Last Filed: 12/05/23 09:47> Assessment and Plan: POD #8: Right hip trochanteric nail. PT/OT with weight-bearing as tolerated. Walker. High Fall Risk. DVT prophylaxis with SCDs and Arixtra. Plan transition to aspirin at discharge. Pain control. Muscle relaxers. Pain patch. Dispo: Patient would benefit from [facility] for inpatient therapy. Currently denied by insurance causing delay in d/c. Awaiting [id number] review. If continued denial, would recommend SNF for Rehab vs. [place] [facility]. Care coordination updated on family preferences. <TOD Morris - Last Filed: 12/05/23 09:47> POD #8: Right hip trochanteric nail. PT/OT with weight-bearing as tolerated. Walker. High Fall Risk. DVT prophylaxis with SCDs and Arixtra. Plan transition to aspirin at discharge. Pain control. Muscle relaxers. Pain patch. Dispo: Patient would benefit from [facility] for inpatient therapy. Currently denied by insurance causing delay in d/c. Patient would benefit and requires 3hr PT per day plus OT services to regain ambulation. Care coordination updated on family preferences. <Santos Cristina MD - Last Filed: 12/05/23 10:47> Assessment and Plan: Reviewed history, exam, radiographs and current labs with attending MD and covering surgeon, Dr. Cristina, who agrees with current plan as indicated above. No further recommendations from Dr. Cristina at this time. <TOD Morris - Last Filed: 12/05/23 09:47> Subjective Subjective Date/Time Seen: 12/05/23 09:32 <TOD Morris - Last Filed: 12/05/23 09:47> Post Op day: 8 <TOD Morris - Last Filed: 12/05/23 09:47> Principal diagnosis: Right hip IT fracture <TOD Morris - Last Filed: 12/05/23 09:47> Interval history: POD #8: Right Hip Trochanteric Nail. Patient with complaints of hamstring tightness/spasm and pain. Does not feel his current pain medication is helping. Receiving a dose of IV ibuprofen. Still with significant bruising. He has been denied for [facility] by insurance. <TOD Morris - Last Filed: 12/05/23 09:47> Review of Systems Review of Systems: All systems reviewed & are unremarkable except as noted in HPI and below <TOD Morris - Last Filed: 12/05/23 09:47> Exam Const: General: healthy appearing; No in distress or confusion <TOD Morris - Last Filed: 12/05/23 09:47> Orientation/consciousness: patient oriented x3 and No confusion <TOD Morris - Last Filed: 12/05/23 09:47> HENMT: Head: normal to inspection, normocephalic and atraumatic <TOD Morris - Last Filed: 12/05/23 09:47> Eyes: Conjunctivae: conjunctivae normal <TOD Morris - Last Filed: 12/05/23 09:47> Sclera: sclerae normal <TOD Morris - Last Filed: 12/05/23 09:47> Resp: Effort & Inspection: normal respiratory effort and no audible wheezes <TOD Morris - Last Filed: 12/05/23 09:47> Neuro: General: patient oriented x3 and No confusion <TOD Morris - Last Filed: 12/05/23 09:47> Extrem: Other: Right hip incisions clean dry and intact. Right foot good capillary refill. Negative Homans. Weak ankle dorsiflexion as noted preoperatively. <Yelena Wyatt, TOD - Last Filed: 12/05/23 09:47> Psych: Affect: normal affect <
[2023-12-05] MEDS: HYDROcodone/acetaminophen (*CRX) 5-325 MG TABLET 1 TAB PO (09:48)
[2023-12-05 11:36] LABS: Glucose Point of Care 219 mg/dl (65-105)
[2023-12-05] MEDS: PANTOPRAZOLE 40 MG TABLET PO (12:15)
[2023-12-05] MEDS: atenoloL 50 MG TABLET PO (12:15)
--- NOTE | 2023-12-05 15:22 | PC.NURSE ---
Aarti Montague [employer] notified of holding noon norvasc due to bp 110/57.
[2023-12-05 15:51] LABS: Glucose Point of Care 213 mg/dl (65-105)
[2023-12-05 16:40] LABS: Glucose Point of Care 189 mg/dl (65-105)
[2023-12-05] MEDS: PRAVASTATIN SODIUM 20 MG TABLET PO (17:16)
[2023-12-05] MEDS: VALSARTAN 80 MG TABLET PO (17:16)
[2023-12-05 19:20] LABS: Glucose Point of Care 233 mg/dl (65-105)
[2023-12-05] MEDS: ASPIRIN 81 MG ENTERIC TABLET PO (20:43)
[2023-12-05] MEDS: INSULIN GLARGINE (*BKC) 100 UNITS/ML 20 UNITS SUB-Q (20:43)
[2023-12-05] MEDS: GABAPENTIN 300 MG CAPSULE PO (20:43)
[2023-12-05] MEDS: QUEtiapine FUMARATE 12.5 MG TABLET PO (20:44)
[2023-12-05] MEDS: NORTRIPTYLINE HCL 25 MG CAPSULE PO (20:44)
[2023-12-06] MEDS: CYCLOBENZAPRINE HCL 10 MG TABLET PO (04:16)
[2023-12-06] MEDS: HYDROcodone/acetaminophen (*CRX) 5-325 MG TABLET 1 TAB PO (04:16)
[2023-12-06 05:19] VITALS: BP 131/74; PULSE 81; RESP 18; TEMP 36.7; O2SAT 98
[2023-12-06] MEDS: SENNA/DOCUSATE SODIUM TABLET 2 TAB PO ×2 (08:43→16:34)
[2023-12-06] MEDS: CELECOXIB 200 MG CAPSULE PO (08:43)
[2023-12-06] MEDS: FERROUS SULFATE 325 MG TABLET DR PO (08:43)
[2023-12-06] MEDS: FONDAPARINUX SODIUM 2.5 MG/0.5 ML SYRINGE SUB-Q (08:44)
[2023-12-06] MEDS: LIDOCAINE 5% PATCH 1 PATCH TRANSDERM (08:45)
[2023-12-06] MEDS: polyethylene glycoL 3350 17 GM POWD.PACK PO (08:45)
[2023-12-06] MEDS: INSULIN ASPART (*BKC) 100 UNITS/ML SUB-Q ×4 (08:46→16:44)
[2023-12-06] MEDS: DICLOFENAC SODIUM 1% 100 GM GEL (*BKC) 1 APPLIC TOPICAL ×4 (08:47→21:41)
[2023-12-06 08:51] LABS: Glucose Point of Care 156 mg/dl (65-105)
--- NOTE | 2023-12-06 09:04 | P.PNIM_ITS ---
Progress Note: A&P Assessment and Plan (1) Closed intertrochanteric fracture: Qualifiers: Encounter type: subsequent encounter Fracture alignment: displaced Fracture healing: with routine healing Laterality: right Qualified Code(s): S72.141D - Displaced intertrochanteric fracture of right femur, subsequent encounter for closed fracture with routine healing Code(s): S72.143A - Displaced intertrochanteric fracture of unspecified femur, initial encounter for closed fracture Status: Deleted Assessment and Plan: * Pain management adjusted * Antipyretics for fever and mild pain * Arixtra DVTs transition to oral aspirin at discharge per Ortho * PT OT * Scheduled Tylenol and ibuprofen, oxycodone, and Flexeril * Gabapentin changed to BID (2) Fall in shower: Code(s): W18.2XXA - Fall in (into) shower or empty bathtub, initial encounter Status: Acute Assessment and Plan: * fall precautions * PT/OT recommendations for rehab (3) 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 HS * sliding scale insulin * hold oral diabetic medications * BS had been elevated add Lantus 20 units and SS to ensure better BS control * encourage lifestyle modifications and weight loss * Optimize Everton inhibitors and statins. * Watch for hypoglycemia/hypoglycemic protocol ordered * Blood glucose has been ranging 178-289 for the last 24 hours. Plan Code status: Full code per patient DVT prophylaxis: Arixtra DVTs transition to oral aspirin at discharge per Ortho Stress ulcer prophylaxis: Protonix 40 daily PT/OT notes: PT/OT Pending Rehab Disposition: Medically ready for discharge. Insurance denied acute rehab. Peer to peer completed but denial upheld. Insurance will authorize SNF. Family would like to try [facility]. Time Spent With Patient Time with patient: Greater than 35 minutes Subjective Date/time seen: 12/06/23 09:04 Interval history: Patient still having issues with pain management, pain medications adjusted. Hopefully with these adjustments patient will do better with PT and OT. Blood sugars running over 200, sliding scale adjusted. Patient waiting on insurance to approve placement. Review of Systems Review of Systems: in bed, rates pain 7- just worked with pt/ot All systems reviewed & are unremarkable except as noted in HPI and below Exam Narrative: General: appears comfortable, in no acute distress Respiratory: breathing is unlabored with even chest rise/fall, lungs are clear without wheezing, rhonchi, and crackles Cardiovascular: Rate and rhythm regular, normal s1s2, no murmur Abdomen: Soft, round, non-tender, active bowel sounds Extremities: No cyanosis, edema, club
--- NOTE | 2023-12-06 09:04 | PM.IMPN ---
Progress Note: A&P Assessment and Plan (1) Closed intertrochanteric fracture: Qualifiers: Encounter type: subsequent encounter Fracture alignment: displaced Fracture healing: with routine healing Laterality: right Qualified Code(s): S72.141D - Displaced intertrochanteric fracture of right femur, subsequent encounter for closed fracture with routine healing Code(s): S72.143A - Displaced intertrochanteric fracture of unspecified femur, initial encounter for closed fracture Status: Deleted Assessment and Plan: Pain management adjusted Antipyretics for fever and mild pain Arixtra DVTs transition to oral aspirin at discharge per Ortho PT OT Scheduled Tylenol and ibuprofen, oxycodone, and Flexeril Gabapentin changed to BID (2) Fall in shower: Code(s): W18.2XXA - Fall in (into) shower or empty bathtub, initial encounter Status: Acute Assessment and Plan: fall precautions PT/OT recommendations for rehab (3) 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 HS sliding scale insulin hold oral diabetic medications BS had been elevated add Lantus 20 units and SS to ensure better BS control encourage lifestyle modifications and weight loss Optimize Everton inhibitors and statins. Watch for hypoglycemia/hypoglycemic protocol ordered Blood glucose has been ranging 178-289 for the last 24 hours. Plan Code status: Full code per patient DVT prophylaxis: Arixtra DVTs transition to oral aspirin at discharge per Ortho Stress ulcer prophylaxis: Protonix 40 daily PT/OT notes: PT/OT Pending Rehab Disposition: Medically ready for discharge. Insurance denied acute rehab. Peer to peer completed but denial upheld. Insurance will authorize SNF. Family would like to try [facility]. Time Spent With Patient Time with patient: Greater than 35 minutes Subjective Date/time seen: 12/06/23 09:04 Interval history: Patient still having issues with pain management, pain medications adjusted. Hopefully with these adjustments patient will do better with PT and OT. Blood sugars running over 200, sliding scale adjusted. Patient waiting on insurance to approve placement. Review of Systems Review of Systems: in bed, rates pain 7- just worked with pt/ot All systems reviewed & are unremarkable except as noted in HPI and below Exam Narrative: General: appears comfortable, in no acute distress Respiratory: breathing is unlabored with even chest rise/fall, lungs are clear without wheezing, rhonchi, and crackles Cardiovascular: Rate and rhythm regular, normal s1s2, no murmur Abdomen: Soft, round, non-tender, active bowel sounds Extremities: No cyanosis, edema, clubbing. Pulses 2/2 Neuro: A&O x 4, Skin: Warm, dry, intact. Surgical incision to right hip with surgical dressing which is clean, dry, and intact. Scattered ecchymosis to right hip and right flank. Const: General: comfortable, no acute distress, well developed, alert, awake and average body habitus Nutritional Appearance: average body habitus Orientation/consciousness: patient oriented x3 HENMT: Head: normal to inspection, normocephalic and atraumatic Ears: hearing grossly normal bilaterally Other: right facial droop Eyes: General: appearance normal, both eyes and all related structures Pupils: Equal, round and reactive pupils present EOM: EOMs intact bilaterally Neck: Neck: full ROM, no lymphadenopathy and no JVD Thyroid: thyroid normal Lymphatic: no lymphadenopathy noted Resp:
--- NOTE | 2023-12-06 10:13 | PM.PNORT ---
Progress Note: A&P Assessment and Plan (1) Closed intertrochanteric fracture of right hip: Qualifiers: Encounter type: subsequent encounter Fracture alignment: displaced Fracture healing: with routine healing Qualified Code(s): S72.141D - Displaced intertrochanteric fracture of right femur, subsequent encounter for closed fracture with routine healing Code(s): S72.141A - Displaced intertrochanteric fracture of right femur, initial encounter for closed fracture Status: Acute Assessment and Plan: POD #9: Right hip trochanteric nail. PT/OT with weight-bearing as tolerated. Walker. High Fall Risk. DVT prophylaxis with SCDs and Arixtra. Plan transition to aspirin at discharge. Pain control. Muscle relaxers. Pain patch. Dispo: Denied for [facility]. Possible transfer to [facility]. Awaiting Insurance Authorization. Plan Reviewed history, exam, radiographs and current labs with attending MD and covering surgeon, Dr. Cristina, who agrees with current plan as indicated above. No further recommendations from Dr. Cristina at this time. Subjective Subjective Date/Time Seen: 12/06/23 10:13 Post Op day: 9 Principal diagnosis: Right hip IT fracture Interval history: POD #9: Right Hip Trochanteric Nail. Patient with continued complaints of hamstring tightness/spasm and pain. Still with significant bruising. He has been denied for TIM[facility] by insurance. Awaiting possible swing bed. Review of Systems Review of Systems: All systems reviewed & are unremarkable except as noted in HPI and below Exam Const: General: healthy appearing; No in distress or confusion Orientation/consciousness: patient oriented x3 and No confusion HENMT: Head: normal to inspection, normocephalic and atraumatic Eyes: Conjunctivae: conjunctivae normal Sclera: sclerae normal Resp: Effort & Inspection: normal respiratory effort and no audible wheezes Neuro: General: patient oriented x3 and No confusion Extrem: Other: Right hip incisions clean dry and intact. Right foot good capillary refill. Negative Homans. Weak ankle dorsiflexion as noted preoperatively. Psych: Affect: normal affect Objective Data Vital Signs Vital Signs: Vital Signs - 24 hr 12/05/23 12:14 12/05/23 12:15 12/05/23 14:00 Temperature 35.7 C L Pulse Rate 66 73 Respiratory Rate 14 Blood Pressure 110/57 L 126/57 L Pulse Oximetry 100 Oxygen Delivery Fraction of Inspired Oxygen 12/05/23 17:21 12/05/23 20:34 12/05/23 20:40 Temperature 36.3 C L Pulse Rate 73 73 Respiratory Rate 18 18 Blood Pressure 139/83 124/66 Pulse Oximetry 98 98 Oxygen Delivery Room Air Fraction of Inspired Oxygen 12/06/23 05:19 Temperature 36.7 C Pulse Rate 81 Respiratory Rate 18 Blood Pressure 131/74 Pulse Oximetry 98 Oxygen Delivery Fraction of Inspired Oxygen Intake/Output Intake/Output: Intake & Output 12/03/23 12/04/23 12/05/23 12/06/23 23:59 23:59 23:59 23:59 Intake Total 1840 1750 1020 350 Output Total 2250 1750 1850 1350 Balance -410 0 -830 -1000 Meds/Results Medications: Active Medications Generic Name Dose Route Start Last Admin Trade Name Freq PRN Reason Stop Dose Admin Acetaminophen 650 mg 11/27/23 18:00 12/06/23 05:05 Acetaminophen 325 Mg Tablet PO Not Given Q6HR [facility] Amlodipine Besylate 10 mg 11/27/23 12:00 12/05/23 15:15 Amlodipine Besylate 10 Mg Tablet PO Not Given DAILY@1200 [facility] Aspirin 81 mg 11/27/23 21:00 12/05/23 20:43 Aspirin 81 Mg Enteric Tablet PO 81 mg HS SAILAJA Administration Atenolol 50 mg 11/27/23 12:00 12/05/23 12:15 Atenolol 50 Mg Tablet PO 50 mg DAILY@1200 [facility] Administration Celecoxib 200 mg 11/28/23 08:00 12/06/23 08:43 Celecoxib 200 Mg Capsule PO 200 mg DAILY@0800 [facility] Administration Cyclobenzaprine HCl 5 mg 12/06/23 13:00 Cyclobenzaprine Hcl 5 Mg Tablet PO Q8HR [facility] Dextrose 12.5 gm 11/27/23 15:
[2023-12-06 11:24] LABS: Glucose Point of Care 200 mg/dl (65-105)
[2023-12-06] MEDS: IBUPROFEN 600 MG TABLET PO ×3 (11:25→21:40)
[2023-12-06] MEDS: ACETAMINOPHEN 325 MG TABLET 650 MG PO ×2 (11:25→17:31)
[2023-12-06 12:20] VITALS: PULSE 88
[2023-12-06] MEDS: CYCLOBENZAPRINE HCL 5 MG TABLET PO ×2 (12:20→21:39)
[2023-12-06] MEDS: PANTOPRAZOLE 40 MG TABLET PO (12:20)
[2023-12-06] MEDS: amLODIPine BESYLATE 10 MG TABLET PO (12:20)
[2023-12-06] MEDS: atenoloL 50 MG TABLET PO (12:20)
[2023-12-06 14:00] VITALS: BP 117/50; PULSE 80; RESP 18; TEMP 35.6; O2SAT 100
[2023-12-06] MEDS: oxyCODONE HCL (*CRX) 5 MG TAB IR PO (16:43)
[2023-12-06 16:46] LABS: Glucose Point of Care 240 mg/dl (65-105)
[2023-12-06] MEDS: VALSARTAN 80 MG TABLET PO (17:31)
[2023-12-06] MEDS: PRAVASTATIN SODIUM 20 MG TABLET PO (17:31)
[2023-12-06 20:39] LABS: Glucose Point of Care 229 mg/dl (65-105)
[2023-12-06 20:41] VITALS: BP 121/55; PULSE 72; RESP 19; TEMP 36.2; O2SAT 98
[2023-12-06] MEDS: ASPIRIN 81 MG ENTERIC TABLET PO (21:39)
[2023-12-06] MEDS: NORTRIPTYLINE HCL 25 MG CAPSULE PO (21:39)
[2023-12-06] MEDS: QUEtiapine FUMARATE 12.5 MG TABLET PO (21:40)
[2023-12-06] MEDS: FLUoxetine HCL 10 MG CAPSULE PO (21:40)
[2023-12-06] MEDS: GABAPENTIN 300 MG CAPSULE PO (21:40)
[2023-12-06] MEDS: INSULIN GLARGINE (*BKC) 100 UNITS/ML 20 UNITS SUB-Q (21:59)
[2023-12-07] MEDS: ACETAMINOPHEN 325 MG TABLET 650 MG PO ×2 (01:18→06:32)
[2023-12-07] MEDS: oxyCODONE HCL (*CRX) 2.5 MG TAB IR 7.5 MG PO (01:28)
[2023-12-07] MEDS: IBUPROFEN 600 MG TABLET PO ×2 (04:45→08:15)
[2023-12-07 05:23] VITALS: BP 128/56; PULSE 67; RESP 18; TEMP 36.2; O2SAT 97
[2023-12-07] MEDS: CYCLOBENZAPRINE HCL 5 MG TABLET PO (06:33)
--- NOTE | 2023-12-07 07:53 | P.PNIM_ITS ---
Progress Note: A&P Assessment and Plan (1) Closed intertrochanteric fracture: Qualifiers: Encounter type: subsequent encounter Fracture alignment: displaced Fracture healing: with routine healing Laterality: right Qualified Code(s): S72.141D - Displaced intertrochanteric fracture of right femur, subsequent encounter for closed fracture with routine healing Code(s): S72.143A - Displaced intertrochanteric fracture of unspecified femur, initial encounter for closed fracture Status: Deleted Assessment and Plan: * Pain management adjusted * Antipyretics for fever and mild pain * Arixtra DVTs transition to oral aspirin at discharge per Ortho * PT OT * Scheduled Tylenol and ibuprofen, oxycodone, and Flexeril * Gabapentin changed to BID (2) Fall in shower: Code(s): W18.2XXA - Fall in (into) shower or empty bathtub, initial encounter Status: Acute Assessment and Plan: * fall precautions * PT/OT recommendations for rehab (3) 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 HS * sliding scale insulin * hold oral diabetic medications * BS had been elevated add Lantus 20 units and SS to ensure better BS control * encourage lifestyle modifications and weight loss * Optimize Everton inhibitors and statins. * Watch for hypoglycemia/hypoglycemic protocol ordered * Blood glucose has been ranging 178-289 for the last 24 hours. Plan Code status: Full code per patient DVT prophylaxis: Arixtra DVTs transition to oral aspirin at discharge per Ortho Stress ulcer prophylaxis: Protonix 40 daily PT/OT notes: PT/OT Pending Rehab Disposition: Medically ready for discharge. Insurance denied acute rehab. Peer to peer completed but denial upheld. Insurance will authorize SNF. Family would like to [facility]. Subjective Date/time seen: 12/07/23 07:53 Interval history: Patient still having issues with pain management, pain medications adjusted. Hopefully with these adjustments patient will do better with PT and OT. Blood sugars running over 200, long-acting insulin increased. Patient waiting on insurance to approve placement. Review of Systems Review of Systems: All systems reviewed & are unremarkable except as noted in HPI and below Exam Narrative: General: appears comfortable, in no acute distress Respiratory: breathing is unlabored with even chest rise/fall, lungs are clear without wheezing, rhonchi, and crackles Cardiovascular: Rate and rhythm regular, normal s1s2, no murmur Abdomen: Soft, round, non-tender, active bowel sounds Extremities: No cyanosis, edema, clubbing. Pulses 2/2 Neuro: A&O x 4, Skin: Warm, dry, intact. Surgical incision to right hip with surgical dressing
--- NOTE | 2023-12-07 07:53 | PM.IMPN ---
Progress Note: A&P Assessment and Plan (1) Closed intertrochanteric fracture: Qualifiers: Encounter type: subsequent encounter Fracture alignment: displaced Fracture healing: with routine healing Laterality: right Qualified Code(s): S72.141D - Displaced intertrochanteric fracture of right femur, subsequent encounter for closed fracture with routine healing Code(s): S72.143A - Displaced intertrochanteric fracture of unspecified femur, initial encounter for closed fracture Status: Deleted Assessment and Plan: Pain management adjusted Antipyretics for fever and mild pain Arixtra DVTs transition to oral aspirin at discharge per Ortho PT OT Scheduled Tylenol and ibuprofen, oxycodone, and Flexeril Gabapentin changed to BID (2) Fall in shower: Code(s): W18.2XXA - Fall in (into) shower or empty bathtub, initial encounter Status: Acute Assessment and Plan: fall precautions PT/OT recommendations for rehab (3) 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 HS sliding scale insulin hold oral diabetic medications BS had been elevated add Lantus 20 units and SS to ensure better BS control encourage lifestyle modifications and weight loss Optimize Everton inhibitors and statins. Watch for hypoglycemia/hypoglycemic protocol ordered Blood glucose has been ranging 178-289 for the last 24 hours. Plan Code status: Full code per patient DVT prophylaxis: Arixtra DVTs transition to oral aspirin at discharge per Ortho Stress ulcer prophylaxis: Protonix 40 daily PT/OT notes: PT/OT Pending Rehab Disposition: Medically ready for discharge. Insurance denied acute rehab. Peer to peer completed but denial upheld. Insurance will authorize SNF. Family would like to [facility]. Subjective Date/time seen: 12/07/23 07:53 Interval history: Patient still having issues with pain management, pain medications adjusted. Hopefully with these adjustments patient will do better with PT and OT. Blood sugars running over 200, long-acting insulin increased. Patient waiting on insurance to approve placement. Review of Systems Review of Systems: All systems reviewed & are unremarkable except as noted in HPI and below Exam Narrative: General: appears comfortable, in no acute distress Respiratory: breathing is unlabored with even chest rise/fall, lungs are clear without wheezing, rhonchi, and crackles Cardiovascular: Rate and rhythm regular, normal s1s2, no murmur Abdomen: Soft, round, non-tender, active bowel sounds Extremities: No cyanosis, edema, clubbing. Pulses 2/2 Neuro: A&O x 4, Skin: Warm, dry, intact. Surgical incision to right hip with surgical dressing which is clean, dry, and intact. Scattered ecchymosis to right hip and right flank. Const: General: comfortable, no acute distress, well developed, alert, awake and average body habitus Nutritional Appearance: average body habitus Orientation/consciousness: patient oriented x3 HENMT: Head: normal to inspection, normocephalic and atraumatic Ears: hearing grossly normal bilaterally Other: right facial droop Eyes: General: appearance normal, both eyes and all related structures Pupils: Equal, round and reactive pupils present EOM: EOMs intact bilaterally Neck: Neck: full ROM, no lymphadenopathy and no JVD Thyroid: thyroid normal Lymphatic: no lymphadenopathy noted Resp: Effort & Inspection: normal respiratory effort and able to speak in complete sentences Auscultation: clear to au
[2023-12-07 08:08] LABS: Glucose Point of Care 187 mg/dl (65-105)
[2023-12-07] MEDS: FERROUS SULFATE 325 MG TABLET DR PO (08:15)
[2023-12-07] MEDS: polyethylene glycoL 3350 17 GM POWD.PACK PO (08:15)
[2023-12-07] MEDS: CELECOXIB 200 MG CAPSULE PO (08:15)
[2023-12-07] MEDS: GABAPENTIN 300 MG CAPSULE PO (08:15)
[2023-12-07] MEDS: INSULIN ASPART (*BKC) 100 UNITS/ML SUB-Q (08:20)
[2023-12-07] MEDS: LIDOCAINE 5% PATCH 1 PATCH TRANSDERM (08:26)
[2023-12-07] MEDS: DICLOFENAC SODIUM 1% 100 GM GEL (*BKC) 1 APPLIC TOPICAL (08:33)
[2023-12-07] MEDS: FONDAPARINUX SODIUM 2.5 MG/0.5 ML SYRINGE SUB-Q (08:33)
--- NOTE | 2023-12-07 08:38 | P.DS_ITS ---
DS: Admitting Diagnosis Discharge Date 12/07/2023 Admitting Diagnosis Right IT fracture DS: Discharge Diagnosis Discharge Diagnosis (1) Closed intertrochanteric fracture: Qualifiers: Encounter type: subsequent encounter Fracture alignment: displaced Fracture healing: with routine healing Laterality: right Qualified Code(s): S72.141D - Displaced intertrochanteric fracture of right femur, subsequent encounter for closed fracture with routine healing Code(s): S72.143A - Displaced intertrochanteric fracture of unspecified femur, initial encounter for closed fracture Status: Deleted Assessment and Plan: * Pain management adjusted * Antipyretics for fever and mild pain * Arixtra DVTs transition to oral aspirin at discharge per Ortho * PT OT * Scheduled Tylenol and ibuprofen, oxycodone, and Flexeril * Gabapentin changed to BID (2) Fall in shower: Code(s): W18.2XXA - Fall in (into) shower or empty bathtub, initial encounter Status: Acute Assessment and Plan: * fall precautions * PT/OT recommendations for rehab (3) 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 * Watch for hypoglycemia/hypoglycemic protocol ordered * Blood glucose has been ranging 178-289 for the last 24 hours. Plan Code status: Full code per patient DVT prophylaxis: Arixtra DVTs transition to oral aspirin at discharge per Ortho Stress ulcer prophylaxis: Protonix 40 daily PT/OT notes: PT/OT Pending Rehab Disposition: Medically ready for discharge. Insurance denied acute rehab. Peer to peer completed but denial upheld. Insurance will authorize SNF. [facility] DS: Summary Hospital Course Reason for hospitalization: Right IT fracture Hospital Course: 78-year-old male with past medical history significant for stroke with residual right-sided hemiparesis, hypertension, diabetes, dyslipidemia. Patient was found kneeling after he he went in to take a shower when he fell forward while sitting in his shower bench, no loss of consciousness. Patient had been in his usual state of health up until this point, patient is wheelchair bound able to transfer on his own. Preliminary workup was significant for fracture of the intertrochanteric subtrochanteric area at the right femur. patient has been admitted for further evaluation management and treatment. Right hip reduction with trochanteric Intramedullary nail hip screw fixation with Dr Cristina on 11/27/2023. Patient had troubles progressing in therapy due to chronic sciatica a
--- NOTE | 2023-12-07 08:38 | PM.DS ---
DS: Admitting Diagnosis Discharge Date 12/07/2023 Admitting Diagnosis Right IT fracture DS: Discharge Diagnosis Discharge Diagnosis (1) Closed intertrochanteric fracture: Qualifiers: Encounter type: subsequent encounter Fracture alignment: displaced Fracture healing: with routine healing Laterality: right Qualified Code(s): S72.141D - Displaced intertrochanteric fracture of right femur, subsequent encounter for closed fracture with routine healing Code(s): S72.143A - Displaced intertrochanteric fracture of unspecified femur, initial encounter for closed fracture Status: Deleted Assessment and Plan: Pain management adjusted Antipyretics for fever and mild pain Arixtra DVTs transition to oral aspirin at discharge per Ortho PT OT Scheduled Tylenol and ibuprofen, oxycodone, and Flexeril Gabapentin changed to BID (2) Fall in shower: Code(s): W18.2XXA - Fall in (into) shower or empty bathtub, initial encounter Status: Acute Assessment and Plan: fall precautions PT/OT recommendations for rehab (3) 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 HS sliding scale insulin hold oral diabetic medications BS had been elevated add Lantus 20 units and SS to ensure better BS control encourage lifestyle modifications and weight loss Optimize Everton inhibitors and statins. Watch for hypoglycemia/hypoglycemic protocol ordered Blood glucose has been ranging 178-289 for the last 24 hours. Plan Code status: Full code per patient DVT prophylaxis: Arixtra DVTs transition to oral aspirin at discharge per Ortho Stress ulcer prophylaxis: Protonix 40 daily PT/OT notes: PT/OT Pending Rehab Disposition: Medically ready for discharge. Insurance denied acute rehab. Peer to peer completed but denial upheld. Insurance will authorize SNF. Family would like to try [facility]. DS: Summary Hospital Course Reason for hospitalization: Right IT fracture Hospital Course: 78-year-old male with past medical history significant for stroke with residual right-sided hemiparesis, hypertension, diabetes, dyslipidemia. Patient was found kneeling after he he went in to take a shower when he fell forward while sitting in his shower bench, no loss of consciousness. Patient had been in his usual state of health up until this point, patient is wheelchair bound able to transfer on his own. Preliminary workup was significant for fracture of the intertrochanteric subtrochanteric area at the right femur. patient has been admitted for further evaluation management and treatment. Right hip reduction with trochanteric Intramedullary nail hip screw fixation with Dr Cristina on 11/27/2023. Patient had troubles progressing in therapy due to chronic sciatica and acute pain call me. Due to patient's limited mobility he was not a candidate for rehab. Today after pain management medication adjustments his pain is better controlled, is moving a lot better. While patient was in hospital his blood sugars were uncontrolled, patient did better after several medication changes. Patient's hospital course was delayed due to uncontrolled pain and pending insurance for placement. Patient approved swing bed at [facility], and patient has improvement of mobility family has decided to taken there by car. Status at Discharge Functional status at discharge: uses cane/walker Time Spent with Patient Time attestation: Total time spent providing and/or coordinating discharge services: Exam Narrative: General:
== END 2023-12-07 11:05 | disposition swing bed (61) | DRG 481 ==
LOC: ANHED 23:06 → ANH3MEDSUR 23:42
PROVIDERS: Family Medicine; Nurse Practitioner; Nurse Practitioner Acute Care; Nurse Practitioner Family; Orthopaedic Surgery; Admitting Provider Internal Medicine; Emergency Provider Emergency Medicine; PCP Family Medicine; Visit Provider Nurse Practitioner Gerontology
PROC: 0QS636Z Reposition Right Upper Femur with Intramedullary Internal Fixation Device, Percutaneous Approach (ICD-10-PCS; CPT 27245; principal; 2023-11-27 12:00)
DX: S72.141A Displaced intertrochanteric fracture of right femur, initial encounter for closed fracture (principal); D62 Acute posthemorrhagic anemia; I69.351 Hemiplegia and hemiparesis following cerebral infarction affecting right dominant side; S72.21XA Displaced subtrochanteric fracture of right femur, initial encounter for closed fracture; W18.2XXA Fall in (into) shower or empty bathtub, initial encounter; E11.65 Type 2 diabetes mellitus with hyperglycemia; I69.398 Other sequelae of cerebral infarction; R29.818 Other symptoms and signs involving the nervous system; E11.42 Type 2 diabetes mellitus with diabetic polyneuropathy; I10 Essential (primary) hypertension; E78.5 Hyperlipidemia, unspecified; K21.9 Gastro-esophageal reflux disease without esophagitis; M19.91 Primary osteoarthritis, unspecified site; Z85.118 Personal history of other malignant neoplasm of bronchus and lung; Z90.49 Acquired absence of other specified parts of digestive tract; Z98.42 Cataract extraction status, left eye; Z98.41 Cataract extraction status, right eye; Z87.891 Personal history of nicotine dependence; Z79.82 Long term (current) use of aspirin; Z79.84 Long term (current) use of oral hypoglycemic drugs; Z99.3 Dependence on wheelchair
CPT/HCPCS: 36415; 70450; 71045; 71275; 73502; 73552; 80048; 80053; 82948; 83735; 84484; 85025; 85027; 85610; 85730; 86850; 86900; 86901; 93005; 93971; 96374; 96375; 96376; 97110; 97161; 97165; 97530; 97535; 99199; 99285; A9270; C1713; G0378; J0690; J1100; J1171; J1652; J1741; J1815; J1885; J2003; J2270; J2371; J2405; J2704; J3010; J3360; J7030; J7040; J7120; Q9967

== ENCOUNTER 2023-12-07 11:52 | Inpatient (IN) | payer MEDICARE, SELFPAY ==
--- NOTE | 2023-12-07 12:17 | PM.IMHP ---
H&P: HPI History of Present Illness Date/Time: 12/07/23 12:17 Chief Complaint: Weakness, fall Narrative: This is a 78-year-old male with a past medical history significant for anemia, lung cancer, GERD, diabetes type 2, bowel obstruction, and stroke with right-sided hemiparesis who presented to the hospital at [facility] on 11/25 after a ground level fall resulting in right hip pain. He was found to have a right intratrochanteric fracture. He was admitted with orthopedic consult and underwent a right hip production recs trochanteric intramedullary nail with hip screw fixation. His hospitalization was essentially uneventful with his biggest complaint being pain related. He was discharged on 12/06 and [place] [facility] [place] and OT for weakness and deconditioning. Review of Systems Review of Systems: All systems reviewed & are unremarkable except as noted in HPI and below PMFSH Past Medical History Medical History Anemia Ankle fracture, right Arthritis Bilateral cataracts Body mass index (bmi) 28.0-28.9, adult Bowel obstruction Carcinoma, lung stage III adenocarcinoma status post chemotherapy and radiation. He was also on immunotherapy. Recommend annual chest imaging Cataract Closed intertrochanteric fracture of right hip Dietary counseling and surveillance Dietary counseling and surveillance Elevated lactic acid level Fall in shower GERD (gastroesophageal reflux disease) Health counseling IBS (irritable bowel syndrome) Pneumonia Port-A-Cath in place Sepsis Small bowel obstruction History of small-bowel obstruction 01/04, 02/03, and 05/06, attributed to segmental strictures. 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 TIA (transient ischemic attack) Type 2 diabetes mellitus with hyperglycemia Surgical History Surgical History History of cataract extraction History of cholecystectomy Status post repair of hydrocele Family History Family History Mother Cancer of stomach Father Heart attack Other Family history of cardiovascular disease Hypertension Social History Social History Social History: The patient is a lives with his grandson in [place]. Smoking packs per day: 0.5 Smoking cigarettes per day: 10.0 Years smoked: 40 Smoking pack-years: 20.00 Smoking status: Former smoker Alcohol intake: current Drinks per week: 1 Substance use: never Do You Feel Safe in your Home?: Yes Lack of Transportation: No Lack of Food: Never True Current Housing: I Have Housing Concerned About Future Housing: No Difficulty Paying Gas/Electric Bills: No Difficulty Paying for Meds: No Currently Unemployed: No Education: Master's Degree or Higher Difficulty w/ Childcare or Family Care: No Spiritual care concerns: No Agree to blood products: Yes Meds Home Medications and Allergies Home Medications Medication Instructions Recorded Confirmed Type ferrous sulfate 325 mg (65 mg 350 mg PO DAILY 01/20/19 12/07/23 History iron) tablet blood sugar diagnostic (OneTouch #200 ea 09/23/19 12/07/23 Rx Ultra Blue Test Strip) mecobalamin (vitamin B12) 1,000 1,000 mcg PO DAILY 08/09/22 12/07/23 History mcg chewable tablet AFO consultation #1 ea 08/22/22 12/07/23 Rx metformin 500 mg tablet 500 mg PO TID 90 days #270 tabs 07/30/23 12/07/23 Rx amlodipine 10 mg tablet 10 mg PO QNOON 11/26/23 12/07/23 History atenolol 50 mg tablet 50 mg PO QNOON 11/26/23 12/07/23 History fluoxetine 10 mg capsule 10 mg PO HS 11/26/23 12/07/23 History glipizide 5 mg tablet 10 mg PO BID 11/26/23 12/07/23 History nortriptyline 25 mg capsule 25 mg PO HS 11/26/23 12/07/23 History
[2023-12-07 13:43] VITALS: PULSE 81
[2023-12-07] MEDS: PANTOPRAZOLE 40 MG TABLET PO (13:43)
[2023-12-07] MEDS: atenoloL 50 MG TABLET PO (13:43)
[2023-12-07] MEDS: amLODIPine BESYLATE 5 MG TABLET 10 MG PO (13:44)
[2023-12-07] MEDS: IBUPROFEN 600 MG TABLET PO ×3 (13:44→23:38)
[2023-12-07 13:48] LABS: Glucose Point of Care 182 mg/dl (65-105)
[2023-12-07 14:00] VITALS: BP 145/78; PULSE 81; RESP 14; TEMP 36.6; O2SAT 98
[2023-12-07 14:28] VITALS: BMI 28.6
--- NOTE | 2023-12-07 14:35 | PC.NURSE ---
Pt admitted to the floor at 1200. He is alert and oriented x 3. Family is with him. Pt has a flacid right side both arm and leg. He pivot transfers to . This requires 2 people and a gait belt. Pt does require meal set up but feeds himself.
[2023-12-07 16:00] VITALS: BP 130/58; PULSE 71; RESP 18; TEMP 36.6; O2SAT 99
[2023-12-07 17:01] LABS: Glucose Point of Care 238 mg/dl (65-105)
[2023-12-07] MEDS: PRAVASTATIN SODIUM 20 MG TABLET PO (17:19)
[2023-12-07] MEDS: glipiZIDE XL 5 MG TABCR 10 MG (17:19)
[2023-12-07] MEDS: INSULIN HUMAN LISPRO (*BKC) 1,000 UNITS/10 ML VIAL SUB-Q (17:19)
[2023-12-07] MEDS: VALSARTAN 80 MG TABLET PO (17:19)
[2023-12-07] MEDS: SENNA/DOCUSATE SODIUM TABLET 1 TAB PO (21:19)
[2023-12-07] MEDS: FLUoxetine HCL 10 MG CAPSULE PO (21:19)
[2023-12-07] MEDS: GABAPENTIN 300 MG CAPSULE PO (21:19)
[2023-12-07] MEDS: NORTRIPTYLINE HCL 25 MG CAPSULE PO (21:19)
[2023-12-07] MEDS: HYDROcodone/acetaminophen (*CRX) 5-325 MG TABLET 1 TAB PO (21:26)
[2023-12-07 21:57] LABS: Glucose Point of Care 217 mg/dl (65-105)
[2023-12-08] VITALS: BP 142/65; PULSE 71; RESP 19; TEMP 36.2; O2SAT 95
[2023-12-08] MEDS: HYDROcodone/acetaminophen (*CRX) 5-325 MG TABLET 1 TAB PO ×3 (01:55→20:58)
--- NOTE | 2023-12-08 02:03 | PC.NURSE ---
Pt given [place] one tablet to relieve c/o right leg and hip pain.
[2023-12-08] MEDS: glipiZIDE 5 MG TABLET 10 MG PO (06:00)
[2023-12-08] MEDS: IBUPROFEN 600 MG TABLET PO ×4 (06:00→23:04)
[2023-12-08 08:00] VITALS: BP 140/69; PULSE 73; RESP 14; TEMP 36.1; O2SAT 97
[2023-12-08 08:04] LABS: Glucose Point of Care 154 mg/dl (65-105)
[2023-12-08] MEDS: FERROUS SULFATE 325 MG TABLET DR BY MOUTH (09:42)
[2023-12-08] MEDS: CYANOCOBALAMIN 1,000 MCG TABLET 1000 MCG PO (09:42)
[2023-12-08] MEDS: ASPIRIN 325 MG ENTERIC TABLET PO (09:42)
[2023-12-08] MEDS: polyethylene glycoL 3350 17 GM POWD.PACK PO (09:42)
[2023-12-08] MEDS: GABAPENTIN 300 MG CAPSULE PO ×2 (09:42→20:58)
[2023-12-08 11:54] LABS: Glucose Point of Care 229 mg/dl (65-105)
[2023-12-08] MEDS: amLODIPine BESYLATE 5 MG TABLET 10 MG PO (12:00)
[2023-12-08] MEDS: PANTOPRAZOLE 40 MG TABLET PO (12:00)
[2023-12-08 12:01] VITALS: PULSE 78
[2023-12-08] MEDS: atenoloL 50 MG TABLET PO (12:01)
[2023-12-08] MEDS: INSULIN HUMAN LISPRO (*BKC) 1,000 UNITS/10 ML VIAL SUB-Q (12:01)
--- NOTE | 2023-12-08 13:44 | PC.NURSE ---
Pt out of bed and sitting in WC. Wheels locked. This is the pt's WC from home. Pivoit from bed to chair with gait belt and assist x 2.
[2023-12-08 16:00] VITALS: BP 130/64; PULSE 74; RESP 18; TEMP 36.9; O2SAT 97
[2023-12-08] MEDS: glipiZIDE XL 5 MG TABCR 10 MG (17:29)
[2023-12-08] MEDS: VALSARTAN 80 MG TABLET PO (17:29)
[2023-12-08] MEDS: PRAVASTATIN SODIUM 20 MG TABLET PO (17:32)
[2023-12-08] MEDS: FLUoxetine HCL 10 MG CAPSULE PO (20:58)
[2023-12-08] MEDS: INSULIN GLARGINE (*BKC) 1,000 UNITS/10 ML VIAL 18 UNITS SUB-Q (20:58)
[2023-12-08] MEDS: SENNA/DOCUSATE SODIUM TABLET 1 TAB PO (20:58)
[2023-12-08] MEDS: QUEtiapine FUMARATE 12.5 MG TABLET PO (20:58)
[2023-12-08] MEDS: NORTRIPTYLINE HCL 25 MG CAPSULE PO (20:58)
[2023-12-08 21:05] LABS: Glucose Point of Care 161 mg/dl (65-105)
[2023-12-08 21:05] LABS: Glucose Point of Care 190 mg/dl (65-105)
[2023-12-09] VITALS: BP 140/63; PULSE 64; RESP 18; TEMP 36.6; O2SAT 96
[2023-12-09] MEDS: HYDROcodone/acetaminophen (*CRX) 5-325 MG TABLET 1 TAB PO ×4 (03:18→21:05)
[2023-12-09 05:23] LABS: Hematocrit 33.6 % (37.0-46.0); Hemoglobin 10.9 g/dL (12.4-15.3); Mean Corpuscular HGB Conc 32.4 g/dL (32-36); Mean Corpuscular Hemoglobin 29.5 pg (27.0-31.0); Mean Corpuscular Volume 91.1 fL (78.0-102.0); Mean Platelet Volume 9.1 fl (8.7-11.0); Platelet Count Result 371 K/mm3 (150-420); Red Blood Count 3.69 M/mm3 (4.70-6.10); Red Cell Distribution Width 14.6 % (11.6-14.4); White Blood Count 7.7 K/mm3 (4.8-10.8)
[2023-12-09 05:40] LABS: Alanine Aminotransferase 21 U/L (16-63); Albumin Level 2.9 g/dL (3.4-5.0); Alkaline Phosphatase 90 U/L (46-116); Anion Gap 6 mmol/L (4-12); Aspartate Amino Transferase 16 U/L (15-37); Blood Urea Nitrogen 15 mg/dL (7-18); Calcium 8.5 mg/dL (8.5-10.1); Carbon Dioxide 29 mmol/L (21-32); Chloride 102 mmol/L (98-108); Estimated CRCL calculation 55 ml/min; Estimated Glomerular Filt Rate > 60; Glucose 140 mg/dL (70-99); Osmolality Calculated 286 mOsm/kg (285-295); Sodium 137 mmol/L (136-145); Total Protein 6.8 g/dL (6.4-8.2)
[2023-12-09] MEDS: IBUPROFEN 600 MG TABLET PO ×3 (05:54→18:20)
[2023-12-09] MEDS: glipiZIDE 5 MG TABLET 10 MG PO ×2 (05:54→16:40)
[2023-12-09 08:00] VITALS: BP 148/62; PULSE 75; RESP 14; TEMP 37.1; O2SAT 98
[2023-12-09 08:05] LABS: Glucose Point of Care 153 mg/dl (65-105)
[2023-12-09] MEDS: FERROUS SULFATE 325 MG TABLET DR BY MOUTH (09:16)
[2023-12-09] MEDS: GABAPENTIN 300 MG CAPSULE PO ×2 (09:16→21:04)
[2023-12-09] MEDS: polyethylene glycoL 3350 17 GM POWD.PACK PO (09:16)
[2023-12-09] MEDS: CYANOCOBALAMIN 1,000 MCG TABLET 1000 MCG PO (09:16)
[2023-12-09] MEDS: ASPIRIN 325 MG ENTERIC TABLET PO (09:16)
[2023-12-09 12:04] LABS: Glucose Point of Care 213 mg/dl (65-105)
[2023-12-09 12:07] VITALS: PULSE 78
[2023-12-09] MEDS: amLODIPine BESYLATE 5 MG TABLET 10 MG PO (12:07)
[2023-12-09] MEDS: atenoloL 50 MG TABLET PO (12:07)
[2023-12-09] MEDS: PANTOPRAZOLE 40 MG TABLET PO (12:08)
[2023-12-09] MEDS: INSULIN HUMAN LISPRO (*BKC) 1,000 UNITS/10 ML VIAL SUB-Q (12:08)
[2023-12-09 16:00] VITALS: BP 137/69; PULSE 65; RESP 18; TEMP 35.8; O2SAT 97
[2023-12-09 16:52] LABS: Glucose Point of Care 191 mg/dl (65-105)
[2023-12-09] MEDS: PRAVASTATIN SODIUM 20 MG TABLET PO (18:20)
[2023-12-09] MEDS: VALSARTAN 80 MG TABLET PO (18:20)
[2023-12-09 20:10] LABS: Glucose Point of Care 247 mg/dl (65-105)
[2023-12-09] MEDS: SENNA/DOCUSATE SODIUM TABLET 1 TAB PO (21:04)
[2023-12-09] MEDS: FLUoxetine HCL 10 MG CAPSULE PO (21:04)
[2023-12-09] MEDS: NORTRIPTYLINE HCL 25 MG CAPSULE PO (21:05)
[2023-12-09] MEDS: QUEtiapine FUMARATE 12.5 MG TABLET PO (21:05)
[2023-12-09] MEDS: INSULIN GLARGINE (*BKC) 1,000 UNITS/10 ML VIAL 18 UNITS SUB-Q (21:07)
[2023-12-10] VITALS: BP 126/65; PULSE 66; RESP 16; TEMP 35.9; O2SAT 97
[2023-12-10] MEDS: IBUPROFEN 600 MG TABLET PO ×2 (00:42→05:35)
[2023-12-10] MEDS: glipiZIDE 5 MG TABLET 10 MG PO (06:44)
[2023-12-10] MEDS: CYANOCOBALAMIN 1,000 MCG TABLET 1000 MCG PO (07:59)
[2023-12-10] MEDS: ASPIRIN 325 MG ENTERIC TABLET PO (07:59)
[2023-12-10 08:00] VITALS: BP 147/78; PULSE 78; RESP 16; TEMP 35.5; O2SAT 100
[2023-12-10] MEDS: FERROUS SULFATE 325 MG TABLET DR BY MOUTH (08:00)
[2023-12-10] MEDS: GABAPENTIN 300 MG CAPSULE PO (08:00)
[2023-12-10] MEDS: polyethylene glycoL 3350 17 GM POWD.PACK PO (08:00)
[2023-12-10 08:01] LABS: Glucose Point of Care 131 mg/dl (65-105)
[2023-12-10] MEDS: HYDROcodone/acetaminophen (*CRX) 5-325 MG TABLET 1 TAB PO ×2 (09:21→14:30)
[2023-12-10] MEDS: IBUPROFEN 400 MG TABLET PO (10:25)
[2023-12-10] MEDS: PANTOPRAZOLE 40 MG TABLET PO (11:57)
[2023-12-10 11:58] VITALS: PULSE 78
[2023-12-10] MEDS: amLODIPine BESYLATE 5 MG TABLET 10 MG PO (11:58)
[2023-12-10] MEDS: atenoloL 50 MG TABLET PO (11:58)
[2023-12-10 12:02] LABS: Glucose Point of Care 180 mg/dl (65-105)
--- NOTE | 2023-12-10 14:55 | PC.NURSE ---
Patient discharged with family per private vehicle, personal items sent with patient, PT assisted transfer
== END 2023-12-10 14:55 | DRG 560 ==
PROVIDERS: Nurse Practitioner Acute Care; Admitting Provider Internal Medicine; PCP Family Medicine; Visit Provider Internal Medicine
DX: S72.141D Displaced intertrochanteric fracture of right femur, subsequent encounter for closed fracture with routine healing (principal); I69.351 Hemiplegia and hemiparesis following cerebral infarction affecting right dominant side; D64.9 Anemia, unspecified; E11.9 Type 2 diabetes mellitus without complications; K21.9 Gastro-esophageal reflux disease without esophagitis; K58.9 Irritable bowel syndrome, unspecified; M19.90 Unspecified osteoarthritis, unspecified site; I69.322 Dysarthria following cerebral infarction; Z85.118 Personal history of other malignant neoplasm of bronchus and lung; Z87.891 Personal history of nicotine dependence; Z79.82 Long term (current) use of aspirin
CPT/HCPCS: 36415; 80053; 82948; 85027; 97110; 97162; 97166; 97530; A9270; J1815

== ENCOUNTER 2023-12-28 03:21 | Emergency (ER) | payer MEDICARE, SELFPAY ==
[2023-12-28 03:20] VITALS: BP 113/79; PULSE 97; RESP 23; TEMP 36.1; O2SAT 98
[2023-12-28 03:25] VITALS: BP 113/79; PULSE 98; RESP 21; TEMP 36.1; O2SAT 99
[2023-12-28] MEDS: KETOROLAC 15 MG/ML VIAL (*BKC) IV PUSH (05:00)
[2023-12-28 05:09] VITALS: BP 144/76; PULSE 94; RESP 15; O2SAT 98
[2023-12-28 05:23] LABS: Alanine Aminotransferase 14 U/L (6-50); Albumin Level 3.9 g/dL (3.5-5.1); Alkaline Phosphatase 119 U/L (38-126); Anion Gap 11 mmol/L (4-12); Aspartate Amino Transferase 20 U/L (17-59); Bilirubin,Total 0.8 mg/dL (0.2-1.3); Blood Urea Nitrogen 21 mg/dL (9-20); Carbon Dioxide 24 mmol/L (22-30); Chloride 99 mmol/L (98-107); Estimated CRCL calculation 80 ml/min; Estimated Glomerular Filt Rate > 60; Glucose 215 mg/dL (65-110); Magnesium 1.6 mg/dL (1.6-2.3); Potassium 4.1 mmol/L (3.4-5.0); Sodium 134 mmol/L (137-145)
[2023-12-28] MEDS: LIDOCAINE 5% PATCH 1 PATCH TRANSDERM (05:40)
[2023-12-28] MEDS: GABAPENTIN 300 MG CAPSULE PO (05:45)
--- NOTE | 2023-12-28 05:55 | ED_ITS ---
HPI - Neck Pain/Injury General Chief Complaint: Neck Pain/Injury Stated Complaint: neck pain Time Seen by Provider: 12/28/23 03:40 Source: patient, family and EMS Mode of arrival: EMS Limitations: no limitations History of Present Illness HPI Narrative: This is a 78-year-old male, with history of stroke and right-sided paraplegia, brought in by EMS with complaints of left-sided neck pain. The patient states he had a right leg surgery, that resulted in having recurrent spasms of the leg. He he also has intermittent spasms neck, that usually improve with her medications and conservative therapy but has persisted today. He denies any new weakness/ numbness, fevers or trauma. He describes the pain as cramping, rated 8/10 at maximum and 4/10 and minimum. He has no other complaints at this time. Related Data Home Medications Medication Instructions Recorded Confirmed metformin 500 mg tablet 500 mg PO TIDWM 12/10/23 12/10/23 Allergies Allergy/AdvReac Type Severity Reaction Status Date / Time No Known Allergies Allergy Verified 11/26/23 22:35 Review of Systems Review of Systems: All systems reviewed & are unremarkable except as noted in HPI and below PMFSH Past Medical History Medical History Anemia Ankle fracture, right Arthritis Bilateral cataracts Body mass index (bmi) 28.0-28.9, adult Bowel obstruction Carcinoma, lung stage III adenocarcinoma status post chemotherapy and radiation. He was also on immunotherapy. Recommend annual chest imaging Cataract Closed intertrochanteric fracture of right hip Dietary counseling and surveillance Dietary counseling and surveillance Elevated lactic acid level Fall in shower GERD (gastroesophageal reflux disease) Health counseling IBS (irritable bowel syndrome) Pneumonia Port-A-Cath in place Sepsis Small bowel obstruction History of small-bowel obstruction 01/04, 02/03, and 05/06, attributed to segmental strictures. 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 TIA (transient ischemic attack) Type 2 diabetes mellitus with hyperglycemia Surgical History Surgical History History of cataract extraction History of cholecystectomy Status post repair of hydrocele Family History Family History Mother Cancer of stomach Father Heart attack Other Family history of cardiovascular disease Hypertension Social History Social History Social History: The patient is a lives with his grandson in [place]. Smoking packs per day: 1 Smoking cigarettes per day: 20.0 Years smoked: 25 Smoking pack-years: 25.00 Smoking status: Former smoker Tobacco type: cigarettes Second hand tobacco smoke exposure: No Smoking end date: 02/18/99 Alcohol intake: former Drinks per week: 3 Substance use: never Substance use type: does not use Do You Feel Safe in your Home?: Yes Lack of Transportation: No Lack of Food: Never True Current Housing: I Have Housing Concerned About Future Housing: No Difficulty Paying Gas/Electric Bills: No Difficulty Paying for Meds: No Currently Unemployed: No Education: Master's Degree or Higher Difficulty w/ Childcare or Family Care: No Living arrangements: with family Occupation/Education: retired Gender identity (if verbalized by the patient): Male Sexual Orientation (if Verbalized by the Patient): Straight or Heterosexual Spiritual care concerns: No Agree to blood products: Yes Exam Narrative: GENERAL: Well-developed, well-nourished, and in no acute distress. HEAD: Normocephalic, atraumatic. EYES: PERRLA and EOMI. NECK: Supple. No midline spine tenderness to palpation, no step-off or crepitus. There are muscle spasms noted of the left paraspinal cervical musculature. Tender to palpation at the left paraspinal musculature CHEST: Clear to auscultation. No respiratory distress. No wheezes rales or rhonchi HEART: Regular rate and rhythm. No murmur heard. Normal peripheral pulses. ABDOMEN: Soft, nontender, nondistended, normal active bowel sounds. EXTREMITIES: Normal range of motion of the left upper and left lower extremity. Fasciculations are noted in the right thigh. No edema. SKIN: Warm, dry, no rash. NEURO: Alert and oriented x3. No focal deficit. Moving all 4 limbs spontaneously PSYCH: Normal mood and affect. Course Course Emergency Course: 06:06 - Chemistries demonstrate mild hyponatremia with sodium of 134 and hyperglycemia of 215 but is otherwise unremarkable, including a normal potassium and calcium. On re-evaluation after Toradol, lidocaine patches and gabapentin, the patient states his pain is improved. The patient's children at bedside note his muscle spasms were previously controlled with gabapentin. For unknown reasons, he was started on baclofen which has not improved his pain. Will restart the gabapentin and discharge with recommendation for primary care surgery follow-up. I discussed the findings and recommendations with The patient and his children. Discussed return and emergency precautions including signs/sy mptoms of cauda equina an epidural abscess. The patient and his children voiced understanding and agreement with the plan. All questions answered to their satisfaction. Vital Signs Vital signs: Vital Signs Temperature 97.0 F L 12/28/23 03:20 Pulse Rate 97 12/28/23 03:20 Respiratory Rate 23 H 12/28/23 03:20 Blood Pressure 113/79 12/28/23 03:20 Pulse Oximetry 98 12/28/23 03:20 Oxygen Delivery Room Air 12/28/23 03:20 Temperature 97.0 F L 12/28/23 03:25 Pulse Rate 94 12/28/23 05:09 Respiratory Rate 15 12/28/23 05:09 Blood Pressure 144/76 H 12/28/23 05:09 Pulse Oximetry 98 12/28/23 05:09 Oxygen Delivery Room Air 12/28/23 03:20 MDM - Neck Pain/Injury MDM Narrative Medical decision making narrative: plan: Pain control, labs, reassess Differential Diagnosis Differential diagnosis: Likely other ( muscle spasm, hypocalcemia, hypokalemia, hypercalcemia, metabolic abnormality, other) Lab Data 12/28/23 05:07 Labs: Lab Results 12/28/23 Range/Units 05:07 Sodium 134 L (137-145) mmol/L Potassium 4.1 (3.4-5.0) mmol/L Chloride 99 (98-107) mmol/L Carbon Dioxide 24 (22-30) mmol/L Anion Gap 11 (4-12) mmol/L BUN 21 H (9-20) mg/dL Creatinine 0.70 (0.7-1.3) mg/dL Estim Creat Clear Calc 80 ml/min Estimated GFR > 60 (59 - ) Glucose 215 H (65-110) mg/dL Calcium 9.0 (8.4-10.2) mg/dL Magnesium 1.6 (1.6-2.3) mg/dL Total Bilirubin 0.8 (0.2-1.3) mg/dL AST 20 (17-59) U/L ALT 14 (6-50) U/L Alkaline Phosphatase 119 (38-126) U/L Total Protein 8.0 (6.3-8.2) g/dL Albumin 3.9 (3.5-5.1) g/dL Discharge Plan Discharge Clinical Impression: Neck pain on left side Patient Disposition: Home, Self-Care Condition: Stable Instructions: Antibiotic Form, Muscle Spasm (ED) Additional Instructions: You were seen in the emergency department. Your labs are not concerning for electrolyte abnormality. I recommend lidocaine patches, restarting the gabapentin and following up with your primary care doctor and surgeon. If you develop fevers with severe neck pain and weakness/numbness, loss of sensation in the groin, loss of bowel /bladder control, or if you have other emergent concerns for life, limb, or eyesight, return to the emergency department. Patient Language: Luxembourgish Prescriptions: New lidocaine 5 % adhesive patch,medicated 1 patch topical DAILY Qty: 30 0RF Rx Instructions: leave on most painful area for up to 12 hrs Continued gabapentin [Neurontin] 300 mg Capsule 300 mg PO BID 30 Days Qty: 60 0RF No Action metformin 500 mg tablet 500 mg PO TIDWM Rx Instructions: WITH MEALS acetaminophen 325 mg Tablet 650 mg PO Q6HR 30 Days Qty: 240 0RF lidocaine [Lidocaine Pain Relief] 4 % Adhesive Patch,Medicated 1 patch transdermal DAILY 4 Days Qty: 4 0RF polyethylene glycol 3350 [Miralax] 17 gram Powder In Packet 17 g PO QAM Qty: 30 0RF atorvastatin 10 mg Tablet 10 mg PO QPM 30 Days Qty: 30 0RF cyanocobalamin (vitamin B-12) [Vitamin B-12] 1,000 mcg Tablet 1,000 mcg PO DAILY 30 Days Qty: 30 0RF aspirin 325 mg Tablet,Delayed Release (Dr/Ec) 325 mg PO DAILY 30 Days Qty: 30 0RF baclofen 10 mg Tablet 2.5 mg PO HS 30 Days Qty: 8 0RF amlodipine 10 mg Tablet 10 mg PO NOON 30 Days Qty: 30 0RF pantoprazole 40 mg Tablet,Delayed Release (Dr/Ec) 40 mg PO NOON 30 Days Qty: 30 0RF nortriptyline 10 mg Capsule 30 mg PO HS 30 Days Qty: 90 0RF losartan 25 mg Tablet 50 mg PO QPM 30 Days Qty: 60 0RF fluoxetine [Prozac] 10 mg Capsule 10 mg PO HS 30 Days Qty: 30 0RF ferrous sulfate 325 mg (65 mg iron) Tablet,Delayed Release (Dr/Ec) 325 mg PO DAILY 30 Days Qty: 30 0RF atenolol 50 mg Tablet 50 mg PO NOON 30 Days Qty: 30 0RF hydrocodone-acetaminophen 5-325 mg Tablet 1 tablet PO Q6H PRN (Reason: Pain Rated 7-10) Qty: 28 0RF Follow-up/Referrals: Suad Núñez MD [Primary Care Provider] - 2 Weeks Time of Disposition: 06:13
[2023-12-28 06:24] VITALS: BP 146/84; PULSE 81; RESP 16; O2SAT 100
== END 2023-12-28 06:25 | disposition home or self-care (01) ==
PROVIDERS: Emergency Provider Preventive Medicine Aerospace Medicine; PCP Family Medicine
DX: M54.2 Cervicalgia (principal); I69.351 Hemiplegia and hemiparesis following cerebral infarction affecting right dominant side; I69.322 Dysarthria following cerebral infarction; E11.9 Type 2 diabetes mellitus without complications; M19.90 Unspecified osteoarthritis, unspecified site; K21.9 Gastro-esophageal reflux disease without esophagitis; K58.9 Irritable bowel syndrome, unspecified; Z85.118 Personal history of other malignant neoplasm of bronchus and lung; Z92.21 Personal history of antineoplastic chemotherapy; Z92.3 Personal history of irradiation; Z87.891 Personal history of nicotine dependence; Z87.01 Personal history of pneumonia (recurrent); Z90.49 Acquired absence of other specified parts of digestive tract; Z98.49 Cataract extraction status, unspecified eye; Z79.84 Long term (current) use of oral hypoglycemic drugs; Z79.82 Long term (current) use of aspirin; Z79.899 Other long term (current) drug therapy
CPT/HCPCS: 36415; 80053; 83735; 96374; 99284; A9270; J1885

== ENCOUNTER 2024-08-09 19:49 | Emergency (ER) | payer MEDICARE, SELFPAY ==
--- NOTE | ~2024-08-09 | CT_ITS ---
CT abdomen pelvis w con Ordering provider: Yohan Blair MD History: 79 years Male with . Abdominal pain nausea vomiting diarrhea . Comparison: May 01, 2018 Technique: CT abdomen and pelvis with IV and without oral contrast. Automated exposure control and it erative reconstruction technique were employed. The dose-length product was 961.78 mGy-cm. 100 mL Omn ipaque 350 was given IV. Findings: VISUALIZED LOWER CHEST: Normal. UPPER ABDOMINAL ORGANS: Liver: Fat infiltration. Gallbladder: Status post cholecystectomy. Spleen: Normal. Stomach/duodenum: Normal. Pancreas: Normal. Adrenals: Normal. Kidneys: Tiny bilateral renal cysts. PELVIC ORGANS: The bladder is normal. BOWEL AND MESENTERY: Colon: No evidence of diverticulitis. No evidence of appendicitis. Fluid is seen in the colon. Small Bowel: Thickening of the terminal ileum wall with fluid seen in the area lobes suggestive of en teritis versus diarrhea. Clinical correlation advised. Peritoneum/mesentery: Trace of fluid is seen near to the inferior edge of the liver No free air or fr ee fluid. No mesenteric lymphadenopathy. RETROPERITONEUM: Mild atheromatous disease of the abdominal aorta. No retroperitoneal lymphadenopat hy. MUSCULOSKELETAL: Superficial soft tissues: The superficial soft tissues are normal. Bones: Age appropriate degenerative changes of the spine. Right hip osteoarthritic changes. Bilateral hip Osteoarthritic changes. IMPRESSION: 1. Fluid in the small and large bowel suggestive of diarrhea versus enteritis. Clinical correlation and follow-up advised 2. No evidence of appendicitis, diverticulitis or intestinal obstruction. 3. Fat infiltration of the liver. 4. Trace of fluid near to the age of the liver. No free air is seen Reviewed, dictated and finalized at location A.
[2024-08-09 20:00] VITALS: BP 156/75; PULSE 110; RESP 22; TEMP 37.2; O2SAT 98
[2024-08-09] MEDS: ONDANSETRON INJ 4 MG/2 ML VIAL IV PUSH ×2 (20:41→23:27)
[2024-08-09] MEDS: SODIUM CHLORIDE 0.9% IV 1,000 ML 999 ML IV CONT ×2 (20:41→21:59)
[2024-08-09 20:48] LABS: Glucose Point of Care 246 mg/dl (65-105)
[2024-08-09 21:02] LABS: Basophils Percent Auto 0.2 % (0.2-1.2); Eosinophils Percent Auto 0.1 % (0-4.4); Hematocrit 44.2 % (42.0-52.0); Hemoglobin 14.4 g/dL (14.0-18.0); Immature Granulocyte Absolute 0.05 K/mm3 (0.00-0.031); Immature Granulocyte Percent A 0.3 % (0-0.5); Lymphocytes Absolute Auto 0.26 K/mm3 (0.9-3.2); Lymphocytes Percent Auto 1.7 % (18.3-44.2); Mean Corpuscular HGB Conc 32.6 g/dl (32-36); Mean Corpuscular Hemoglobin 28.2 pg (26-34); Mean Corpuscular Volume 86.5 fl (80-100); Mean Platelet Volume 9.8 fl (7.4-10.4); Monocytes Absolute Auto 0.6 K/mm3 (0.1-0.6); Monocytes Percent Auto 3.7 % (2.6-8.5); Neutrophils Absolute Auto 14.1 K/mm3 (1.3-6.7); Platelet Count Result 241 k/mm3 (150-375); Red Blood Count 5.11 M/mm3 (4.6-6.20); Red Cell Distribution Width 13.2 % (11.5-14.5); White Blood Count 15.1 K/mm3 (4.5-10.0)
[2024-08-09 21:05] VITALS: BP 156/75; PULSE 112; RESP 20; O2SAT 97
[2024-08-09 21:14] LABS: Alanine Aminotransferase 27 U/L (6-50); Albumin Level 4.3 g/dL (3.5-5.1); Alkaline Phosphatase 72 U/L (38-126); Anion Gap 17 mmol/L (4-12); Aspartate Amino Transferase 31 U/L (17-59); Bilirubin,Total 0.7 mg/dL (0.2-1.3); Blood Urea Nitrogen 20 mg/dL (9-20); Calcium 9.4 mg/dL (8.4-10.2); Carbon Dioxide 18 mmol/L (22-30); Chloride 103 mmol/L (98-107); Estimated CRCL calculation 47 ml/min; Estimated Glomerular Filt Rate 58; Glucose 244 mg/dL (65-110); Lipase 97 U/L (23-300); Magnesium 1.8 mg/dL (1.6-2.3); Potassium 4.5 mmol/L (3.4-5.0); Sodium 138 mmol/L (137-145); Total Protein 7.5 g/dL (6.3-8.2)
[2024-08-09 21:19] LABS: INR 1.1; Prothrombin Time 14.2 Seconds (11.1-14.7)
[2024-08-09 21:20] LABS: Partial Thromboplastin Time 23.9 Seconds (22.3-36.8)
[2024-08-09 21:21] LABS: Add Urine Microscopic? YES; Appearance Urine Clear (Clear); Bacteria Urine None Seen /hpf; Bilirubin Urine Negative (Negative); Blood Urine Negative (Negative); Color Urine Yellow (Yellow); Glucose Urine UA 3+ mg/dL (Negative); Ketones Urine Trace mg/dL (Negative); Leukocyte Esterase Ur Negative LEU/UL (Negative); Need Manual Microscopic Reviewed; Nitrate Urine Negative (Negative); Non Pathogenic Casts >20; Protein Urine Trace mg/dL (Negative); RBC Urine 0-2 /hpf (0-2); Squamous Epithelial Cell Urine None Seen /hpf (Few); WBC Urine 0-5 /hpf (0-3)
[2024-08-09 21:25] LABS: Troponin I < 0.012 ng/mL (0.000-0.034)
[2024-08-09 21:39] LABS: Influenza A QL RT-PCR Negative (Negative); Influenza B QL RT-PCR Negative (Negative); RSV RNA, RT-PCR Negative (Negative); SARS-CoV-2 RNA PCR Negative (Negative)
[2024-08-09 21:50] VITALS: BP 142/72; PULSE 109; RESP 20; O2SAT 97
--- NOTE | 2024-08-09 21:53 | ED.GENADULT ---
HPI - General Adult General Chief complaint: Nausea/Vomiting/Diarrhea Stated complaint: n/v/d, sick case, abd pain Time Seen by Provider: 08/09/24 20:17 History of Present Illness HPI narrative: Patient 79-year-old gentleman presents emergency department chief complaint of nausea vomiting diarrhea. Patient reports that around 430 this afternoon he started having multiple episodes of nausea some vomiting and has had multiple loose bowel movements. The patient states that he did have some roles earlier today that may have been the cause patient does have prior history of weakness on his right side has chronic Related Data Home Medications ?Medication ?Instructions ?Recorded ?Confirmed ?Last Taken ?Type aspirin 81 mg tablet 81 mg PO DAILY 08/04/24 08/09/24 08/08/24 History nortriptyline 25 mg capsule mg PO 08/04/24 08/05/24 Unknown History Allergies Allergy/AdvReac Type Severity Reaction Status Date / Time baclofen AdvReac Severe Confusion Verified 08/09/24 20:25 Review of Systems Review of Systems: A 10 system review of systems was completed on the patient and is negative except for what is stated in the HPI. Nursing and ancillary documentation was reviewed. [facility] Past Medical History Medical History Fall in shower Closed intertrochanteric fracture of right hip Dietary counseling and surveillance Health counseling Sepsis Elevated lactic acid level Anemia GERD (gastroesophageal reflux disease) Small bowel obstruction History of small-bowel obstruction 01/04, 02/03, and 05/06, attributed to segmental strictures. Pneumonia Port-A-Cath in place Carcinoma, lung stage III adenocarcinoma status post chemotherapy and radiation. He was also on immunotherapy. 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 Cataract Body mass index (bmi) 28.0-28.9, adult Dietary counseling and surveillance Type 2 diabetes mellitus with hyperglycemia Surgical History Surgical History Status post repair of hydrocele History of cataract extraction History of cholecystectomy Family History Family History Mother Cancer of stomach Father Heart attack Other Family history of cardiovascular disease Hypertension Social History Social History Social History: The patient is a lives with his grandson in [place]. Smoking packs per day: 1 Smoking cigarettes per day: 20.0 Years smoked: 25 Smoking pack-years: 25.00 Smoking status: Former smoker Tobacco type: cigarettes Second hand tobacco smoke exposure: No Smoking end date: 02/18/99 Alcohol intake: former Substance use: never Substance use type: does not use Do You Feel Safe in your Home?: Yes Lack of Transportation: No Lack of Food: Never True Current Housing: I Have Housing Concerned About Future Housing: No Difficulty Paying Gas/Electric Bills: No Difficulty Paying for Meds: No Currently Unemployed: No Education: Master's Degree or Higher Difficulty w/ Childcare or Family Care: No Living arrangements: with family Occupation/Education: retired Gender identity (if verbalized by the patient): Male Sexual Orientation (if Verbalized by the Patient): Straight or Heterosexual Spiritual care concerns: No Agree to blood products: Yes Exam Narrative: GENERAL: Ill-appearing, well-nourished, and in mild acute distress. HEAD: Normocephalic, atraumatic. EYES: PERRLA and EOMI. ENT: Nares clear, no rhinorrhea or epistaxis. Mucous membranes moist. NECK: Supple. CHEST: Clear to auscultation. No respiratory distress. HEART: Regular rate and rhythm. No murmur heard. Normal peripheral pulses. ABDOMEN: Soft, mild tenderness to palpation, nondistended, normal active bowel sounds. EXTREMITIES: Normal range of motion, at neurological baseline. No edema. SKIN: Warm, dry, no rash. NEURO: No focal deficits. Alert and oriented x3. PSYCH: Normal mood and affect. Course Vital Signs Vital signs: Vital Signs Temperature 37.2 C 08/09/24 20:00 Pulse Rate 110 H 08/09/24 20:00 Respiratory Rate 22 H 08/09/24 20:00 Blood Pressure 156/75 H 08/09/24 20:00 Pulse Oximetry 98 08/09/24 20:00 Oxygen Delivery Room Air 08/09/24 20:00 Temperature 37.2 C 08/09/24 20:00 Pulse Rate 111 H 08/09/24 23:38 Respiratory Rate 21 H 08/09/24 23:38 Blood Pressure 121/62 08/09/24 23:38 Pulse Oximetry 97 08/09/24 23:38 Oxygen Delivery Room Air 08/09/24 20:00 Medical Decision Making MDM Narrative Medical decision making narrative: Differential diagnosis includes gastroenteritis, dehydration, viral illness, food poisoning, Laboratory studies were obtained on the patient showed a white count of 15.1 electrolytes showed a glucose of 246 CO2 18 Urinalysis showed 3+ glucose and trace ketones. The patient received 2 L of normal saline boluses and antiemetics in the ER CT scan showed no acute abnormality Vital Signs Vital Signs: Vital Signs Temperature 37.2 C 08/09/24 20:00 Pulse Rate 110 H 08/09/24 20:00 Respiratory Rate 22 H 08/09/24 20:00 Blood Pressure 156/75 H 08/09/24 20:00 Pulse Oximetry 98 08/09/24 20:00 Oxygen Delivery Room Air 08/09/24 20:00 Temperature 37.2 C 08/09/24 20:00 Pulse Rate 111 H 08/09/24 23:38 Respiratory Rate 21 H 08/09/24 23:38 Blood Pressure 121/62 08/09/24 23:38 Pulse Oximetry 97 08/09/24 23:38 Oxygen Delivery Room Air 08/09/24 20:00 Lab Data 08/09/24 20:56 08/09/24 20:56 Labs: Lab Results 08/09/24 08/09/24 08/09/24 Range/Units 20:43 20:56 22:34 WBC 15.1 H (4.5-10.0) K/mm3 RBC 5.11 (4.6-6.20) M/mm3 Hgb 14.4 (14.0-18.0) g/dL Hct 44.2 (42.0-52.0) % MCV 86.5 (80-100) fl MCH 28.2 (26-34) pg MCHC 32.6 (32-36) g/dl RDW 13.2 (11.5-14.5) % Plt Count 241 (150-375) k/mm3 MPV 9.8 (7.4-10.4) fl Immature Gran % (Auto) 0.3 (0-0.5) % Neut % (Auto) 94.0 H (45.5-73.1) % Lymph % (Auto) 1.7 L (18.3-44.2) % [place] % (Auto) 3.7 (2.6-8.5) % Eos % (Auto) 0.1 (0-4.4) % Baso % (Auto) 0.2 (0.2-1.2) % Lymph # (Auto) 0.26 L (0.9-3.2) K/mm3 [place] # (Auto) 0.6 (0.1-0.6) K/mm3 Eos # (Auto) 0.0 (0-0.3) K/mm3 Baso # (Auto) 0.0 (0.0-0.1) K/mm3 Abs Immat Gran (auto) 0.05 H (0.00-0.031) K/mm3 Absolute Neuts (auto) 14.1 H (1.3-6.7) K/mm3 Absolute Nucleated RBC 0.000 (0.0-0.012) K/mm3 Nucleated RBC % 0.0 (0.0-0.2) % PT 14.2 (11.1-14.7) Seconds INR 1.1 APTT 23.9 (22.3-36.8) Seconds Sodium 138 (137-145) mmol/L Potassium 4.5 (3.4-5.0) mmol/L Chloride 103 (98-107) mmol/L Carbon Dioxide 18 L (22-30) mmol/L Anion Gap 17 H (4-12) mmol/L BUN 20 (9-20) mg/dL Creatinine 1.20 (0.7-1.3) mg/dL Estim Creat Clear Calc 47 ml/min Estimated GFR 58 L (59 - ) Glucose 244 H (65-110) mg/dL POC Capillary Glucose 246 H (65-105) mg/dl Lactic Acid 3.3 H (0.7-2.0) mmol/L Calcium 9.4 (8.4-10.2) mg/dL Magnesium 1.8 (1.6-2.3) mg/dL Total Bilirubin 0.7 (0.2-1.3) mg/dL AST 31 (17-59) U/L ALT 27 (6-50) U/L Alkaline Phosphatase 72 (38-126) U/L Troponin I < 0.012 (0.000-0.034) ng/mL Total Protein 7.5 (6.3-8.2) g/dL Albumin 4.3 (3.5-5.1) g/dL Lipase 97 (23-300) U/L Urine Color Yellow (Yellow) Urine Appearance Clear (Clear) Urine pH 5.0 (5.0-9.0) Ur Specific Hooper 1.020 (1.001-1.035) Urine Protein Trace (Negative) mg/dL Urine Glucose (UA) 3+ H (Negative) mg/dL Urine Ketones Trace H (Negative) mg/dL Ur Blood (Man) Negative (Negative) Urine Nitrate Negative (Negative) Urine Bilirubin Negative (Negative) Urine Urobilinogen 1.0 (<2.0) mg/dL Add Ur Microanalysis Reviewed Leukocyte Esterase Rfl Negative (Negative) TYLER/UL Urine RBC 0-2 (0-2) /hpf Urine WBC 0-5 (0-3) /hpf Ur Squamous Epith Cells None seen (Few) /hpf Urine Bacteria None seen /hpf Urine Casts >20 Influenza A (RT-PCR) Negative (Negative) Influenza B (RT-PCR) Negative (Negative) RSV (RT-PCR) Negative (Negative) SARS-CoV-2 RNA (RT-PCR) Negative (Negative) Discharge Plan Discharge Clinical Impression: Gastroenteritis Patient Disposition: Home Condition: Stable Instructions: Antibiotic Form, Gastroenteritis (ED) Patient Language: [place] Prescriptions: New ondansetron 4 mg tablet,disintegrating 4 mg PO Q8H PRN (Reason: nausea and vomiting) Qty: 10 0RF No Action fluoxetine [Prozac] 10 mg capsule 10 mg PO HS 90 Days Qty: 90 3RF valsartan 80 mg tablet 80 mg PO QPM Qty: 90 3RF nortriptyline 25 mg capsule PO aspirin 81 mg tablet 81 mg PO DAILY (DME) blood-glucose,information assistant,cont Misc See Rx Instructions .Route Qty: 1 4RF Rx Instructions: Pt. to check blood fasting blood sugar in the morning, 2 hours after every meal, and when symptomatic gabapentin [Neurontin] 300 mg capsule See Rx Instructions PO BID 30 Days Qty: 90 3RF Rx Instructions: Take 1 capsule in the morning (300 mg) and 2 capsules (600 mg) at night. hydrocodone-acetaminophen 5-325 mg tablet 1 tablet PO BID PRN (Reason: Pain Rated 7-10) Qty: 30 0RF tizanidine 4 mg capsule 4 mg PO QHS PRN (Reason: muscle spasticity) Qty: 30 2RF metformin 500 mg tablet 500 mg PO TIDWM Qty: 270 1RF Rx Instructions: WITH MEALS pantoprazole 40 mg tablet,delayed release (DR/EC) 40 mg PO DAILY Qty: 90 1RF amlodipine 10 mg tablet 10 mg PO NOON Qty: 90 1RF pravastatin 20 mg tablet See Rx Instructions .ROUTE .COMPLEX Qty: 90 0RF Dose Instruction: TAKE 1 TABLET BY MOUTH EVERY EVENING Rx Instructions: TAKE 1 TABLET BY MOUTH EVERY EVENING acetaminophen 325 mg Tablet 650 mg PO Q6HR 30 Days Qty: 240 0RF cyanocobalamin (vitamin B-12) [Vitamin B-12] 1,000 mcg Tablet 1,000 mcg PO DAILY 30 Days Qty: 30 0RF nortriptyline 10 mg Capsule 30 mg PO HS 30 Days Qty: 90 0RF ferrous sulfate 325 mg (65 mg iron) Tablet,Delayed Release (Dr/Ec) 325 mg PO DAILY 30 Days Qty: 30 0RF atenolol 50 mg Tablet 50 mg PO NOON 30 Days Qty: 30 0RF Follow-up/Referrals: Suad Núñez MD [Primary Care Provider] -
[2024-08-09 22:50] LABS: Lactic Acid Reflex 3.3 mmol/L (0.7-2.0)
[2024-08-09] MEDS: HYDROcodone/acetaminophen (*CRX) 5-325 MG TABLET 1 TAB PO (23:05)
[2024-08-09 23:38] VITALS: BP 121/62; PULSE 111; RESP 21; O2SAT 97
[2024-08-10 00:37] LABS: Reflex Lactic Acid Yes or No Add Lactic
[2024-08-10 00:40] VITALS: BP 121/62; PULSE 111; RESP 21; O2SAT 97
== END 2024-08-10 00:44 | disposition home or self-care (01) ==
PROVIDERS: Emergency Provider Emergency Medicine; PCP Family Medicine
DX: K52.9 Noninfective gastroenteritis and colitis, unspecified (principal); K21.9 Gastro-esophageal reflux disease without esophagitis; Z85.118 Personal history of other malignant neoplasm of bronchus and lung; Z86.73 Personal history of transient ischemic attack (TIA), and cerebral infarction without residual deficits; E11.9 Type 2 diabetes mellitus without complications; Z87.891 Personal history of nicotine dependence; Z20.822 Contact with and (suspected) exposure to COVID-19
CPT/HCPCS: 36415; 74177; 80053; 81001; 82948; 83605; 83690; 83735; 84484; 85025; 85610; 85730; 87637; 96361; 96374; 96376; 99284; A9270; J2405; J7030; Q9967

== ENCOUNTER 2024-09-18 07:11 | Outpatient (CLI) | payer MEDICARE, SELFPAY ==
--- NOTE | ~2024-09-18 | XR_ITS ---
XR chest 2V 09/18/2024 07:35 Indication: Abnormal finding on diagnostic imaging Procedure: 2 view chest Comparison: 11/26/2023 Findings: Abnormal appearance to left hilum. Recommend correlation with CT chest with contrast to exc lude lymphadenopathy or underlying mass. Heart size normal. Right lung clear. No pleural effusion or pneumothorax. Impression: 1: Abnormal appearance to left hilum. Follow-up CT chest with contrast recommended. Reviewed, dictated and finalized at location [] Impression: 1: Abnormal appearance to left hilum. Follow-up CT chest with contrast recommen ded.
== END 2024-09-18 07:12 | disposition home or self-care (01) ==
PROVIDERS: PCP Family Medicine; Visit Provider Family Medicine
DX: R93.89 Abnormal findings on diagnostic imaging of other specified body structures (principal); C34.90 Malignant neoplasm of unspecified part of unspecified bronchus or lung
CPT/HCPCS: 71046